=== PATIENT | male | born 1980 | race Two or more races ===

== ENCOUNTER 2017-05-04 08:57 | Emergency (ER) | payer MEDICAID, OTHER ==
[~2017-05-04] VITALS: Ht 177.8 cm; Wt 90.7 kg
[2017-05-04 09:04] VITALS: BP 139/121
[2017-05-04] MEDS ORDERED: KETOROLAC TROMETH 60MG/2ML VIAL IM ONE (12:00)
== END 2017-05-04 13:28 | disposition home or self-care (01) ==
LOC: ER 08:57
DX: S86.911A Strain of unspecified muscle(s) and tendon(s) at lower leg level, right leg, initial encounter (principal); F17.210 Nicotine dependence, cigarettes, uncomplicated; X50.9XXA Other and unspecified overexertion or strenuous movements or postures, initial encounter; Y93.89 Activity, other specified; Y92.89 Other specified places as the place of occurrence of the external cause; Y99.8 Other external cause status
CPT/HCPCS: 93971; 96372; 99284; J1885

== ENCOUNTER 2017-06-18 18:30 | Emergency (ER) | payer MEDICAID ==
[~2017-06-18] VITALS: Ht 177.8 cm; Wt 90.7 kg
[2017-06-18 18:54] VITALS: BP 145/85
[2017-06-18] MEDS ORDERED: LIDOCAINE 1% HCL (LOCAL ANESTH.) INJ 20ML MDV ONE (19:34)
[2017-06-18] MEDS ORDERED: LIDOCAINE 1% HCL (LOCAL ANESTH.) INJ 20ML MDV IJ ONE (19:45)
[2017-06-18] MEDS ORDERED: BACITRACIN TOP OINT 1 UD PKG TOP ONE (19:45)
== END 2017-06-18 20:26 | disposition home or self-care (01) ==
LOC: ER 18:30
DX: S61.215A Laceration without foreign body of left ring finger without damage to nail, initial encounter (principal); S61.217A Laceration without foreign body of left little finger without damage to nail, initial encounter; F17.210 Nicotine dependence, cigarettes, uncomplicated; Z23 Encounter for immunization; W22.8XXA Striking against or struck by other objects, initial encounter; Y93.89 Activity, other specified; Y92.89 Other specified places as the place of occurrence of the external cause; Y99.8 Other external cause status
CPT/HCPCS: 12001; 99283; J2001

== ENCOUNTER 2019-11-04 08:19 | Emergency (ER) | payer MEDICAID ==
[~2019-11-04] VITALS: Ht 177.8 cm; Wt 86.2 kg
[2019-11-04] MEDS ORDERED: SODIUM CHLORIDE 0.9% 1,000 ML IV ONE ×2 (08:26)
[2019-11-04 14:18] VITALS: BP 162/86
== END 2019-11-04 11:45 | disposition left against medical advice (07) ==
LOC: ER 08:19
DX: T67.5XXA Heat exhaustion, unspecified, initial encounter (principal); E86.0 Dehydration; I10 Essential (primary) hypertension; F17.210 Nicotine dependence, cigarettes, uncomplicated; X58.XXXA Exposure to other specified factors, initial encounter; Y93.89 Activity, other specified; Y92.89 Other specified places as the place of occurrence of the external cause; Y99.8 Other external cause status
CPT/HCPCS: 71046; 93005

== ENCOUNTER 2020-06-03 17:24 | Emergency (ER) | payer MEDICAID ==
[~2020-06-03] VITALS: Ht 177.8 cm; Wt 88.5 kg
[2020-06-03] MEDS ORDERED: TETRACAINE HCL 0.5% OPTH(EYE) SOLN 4ML ONE (17:29)
[2020-06-03] MEDS ORDERED: TETRACAINE HCL 0.5% OPTH(EYE) SOLN 4ML RIGHTEYE ONE (17:45)
[2020-06-03] MEDS ORDERED: ACETAMINOPHEN/CODEINE#3 (300/30mg) TAB PO ONE (19:45)
[2020-06-03 20:41] VITALS: BP 131/92
== END 2020-06-03 21:01 | disposition home or self-care (01) ==
LOC: ER 17:24
DX: S05.01XA Injury of conjunctiva and corneal abrasion without foreign body, right eye, initial encounter (principal); H00.033 Abscess of eyelid right eye, unspecified eyelid; F17.210 Nicotine dependence, cigarettes, uncomplicated; I10 Essential (primary) hypertension; X58.XXXA Exposure to other specified factors, initial encounter; Y93.89 Activity, other specified; Y92.89 Other specified places as the place of occurrence of the external cause; Y99.8 Other external cause status
CPT/HCPCS: 70480

== ENCOUNTER 2021-08-04 13:59 | Emergency (ER) | payer MEDICAID ==
[~2021-08-04] VITALS: Ht 177.8 cm; Wt 86.2 kg
[2021-08-04 13:59] VITALS: BP 195/136
[2021-08-04] MEDS ORDERED: ONDANSETRON ODT 4 MG TAB PO ONE (14:15)
[2021-08-04] MEDS ORDERED: amLODIPine BESYLATE 5 MG TAB PO ONE (14:15)
[2021-08-04 15:26] LABS: Albumin 3.9 g/dL (3.4-5.0); Calcium 8.8 mg/dL (8.5-10.1); Potassium 3.7 mmol/L (3.5-5.1)
[2021-08-04 15:39] LABS: BUN/Creatinine Ratio 10.2; Bilirubin, Total 0.8 mg/dL (0.2-1.0); Total Protein 8.3 g/dL (6.4-8.2)
[2021-08-04 16:35] LABS: Basophils # (auto) 0.1 10 ^3/uL (0-0.2); Basophils % (auto) 1.6 % (0.0-2.0); Eosinophils # (auto) 0 10 ^3/uL (0-0.8); Eosinophils % (auto) 0.6 % (0.0-7.0); Hematocrit 36.5 % (41.0-53.0); Hemoglobin 11.6 g/dL (13.5-17.5); Lymphocytes # (auto) 1.5 10 ^3/uL (0.4-5.4); Lymphocytes % (auto) 21.9 % (10.0-50.0); Mean Corpuscular Hemoglobin 23.1 pg (28.0-32.0); Mean Corpuscular Hgb Conc. 31.8 g/dL (32.0-36.0); Mean Corpuscular Volume 72.6 fL (80.0-100.0); Monocytes # (auto) 0.6 10 ^3/uL (0-1.3); Monocytes % (auto) 9.2 % (0.0-12.0); Neutrophils # (auto) 4.6 10 ^3/uL (1.6-8.6); Neutrophils % (auto) 66.7 % (37.0-80.0); Nucleated Red Blood Cells % 0.1 %; Red Blood Cells 5.02 10^6/uL (4.5-5.90); Red Cell Distribution Width 18.1 % (11.8-14.3); White Blood Cell 6.9 10^3/uL (4.4-10.8)
[2021-08-04] MEDS ORDERED: hydrALAZINE HCL 20 MG/ML VL IM ONE (19:45)
[2021-08-04] MEDS ORDERED: NIC21P TOP (19:48)
[2021-08-04] MEDS ORDERED: AML5T PO (19:48)
[2021-08-04] MEDS ORDERED: ONDA-144 PO (19:48)
== END 2021-08-04 20:16 | disposition home or self-care (01) ==
LOC: ER 13:59
DX: I10 Essential (primary) hypertension (principal); R51.9 Headache, unspecified; F17.210 Nicotine dependence, cigarettes, uncomplicated
CPT/HCPCS: 36415; 70450; 71045; 80053; 83690; 84484; 85025; 93005; 99285; Q0162

== ENCOUNTER → 2021-11-04 | Emergency (ER) | payer MEDICAID ==
[~2021-11-04] MED LIST: AML5T PO; NIC21P TOP; ONDA-144 PO
== END | disposition left against medical advice (07) ==
LOC: ER 21:40
DX: H92.03 Otalgia, bilateral (principal); Z53.21 Procedure and treatment not carried out due to patient leaving prior to being seen by health care provider

== ENCOUNTER 2021-11-05 12:26 | Emergency (ER) | payer MEDICAID ==
[2021-11-05 14:40] VITALS: BP 148/95
== END 2021-11-05 14:46 | disposition home or self-care (01) ==
LOC: ER 12:26
DX: H61.23 Impacted cerumen, bilateral (principal)
CPT/HCPCS: 69209

== ENCOUNTER 2022-03-23 07:09 | Inpatient (IN) | payer MEDICAID ==
[~2022-03-23] VITALS: Ht 177.8 cm; Wt 84.2 kg
[2022-03-23] MEDS ORDERED: LIDOCAINE HCL 2% TOP JELLY 5ML TOP ONE (08:15)
[2022-03-23] MEDS ORDERED: HYDROmorphone HCL 2 MG/ML VL/or syr IV ONE (10:30)
[2022-03-23 10:39] LABS: Urine Blood Negative /uL (Negative); Urine Specific Gravity 1.009 (1.001-1.035)
[2022-03-23 11:02] LABS: Basophils # (auto) 0.1 10 ^3/uL (0-0.2); Eosinophils # (auto) 0.2 10 ^3/uL (0-0.8); Red Blood Cells 4.56 10^6/uL (4.5-5.90); White Blood Cell 6.2 10^3/uL (4.4-10.8)
[2022-03-23 11:05] LABS: Basophils % (auto) 1.7 % (0.0-2.0); Eosinophils % (auto) 2.7 % (0.0-7.0); Hematocrit 34.6 % (41.0-53.0); Hemoglobin 10.7 g/dL (13.5-17.5); Lymphocytes # (auto) 1.6 10 ^3/uL (0.4-5.4); Lymphocytes % (auto) 26.4 % (10.0-50.0); Mean Corpuscular Hemoglobin 23.6 pg (28.0-32.0); Monocytes # (auto) 0.6 10 ^3/uL (0-1.3); Monocytes % (auto) 8.9 % (0.0-12.0); Neutrophils # (auto) 3.7 10 ^3/uL (1.6-8.6); Neutrophils % (auto) 60.3 % (37.0-80.0); Red Cell Distribution Width 17.7 % (11.8-14.3)
[2022-03-23] MEDS ORDERED: DOCUSATE SOD 100 MG CAP PO PRN (11:30)
[2022-03-23] MEDS ORDERED: ACETAMINOPHEN 325 MG TAB PO PRN (11:30)
[2022-03-23] MEDS ORDERED: MORPHINE SULFATE INJ 2 MG/ml SYRG IV PRN (11:30)
[2022-03-23] MEDS ORDERED: ONDANSETRON HCL 4 MG/2 ML VIAL IV PRN (11:30)
[2022-03-23 11:36] LABS: Albumin 3.3 g/dL (3.4-5.0); BUN/Creatinine Ratio 7.1; Bilirubin, Total 0.9 mg/dL (0.2-1.0); Calcium 8.6 mg/dL (8.5-10.1); Potassium 4.1 mmol/L (3.5-5.1); Total Protein 7.2 g/dL (6.4-8.2)
[2022-03-23] MEDS ORDERED: IOHEXOL 300 MG/ML 100ML BOTTLE IJ ONE (11:43)
[2022-03-23] MEDS ORDERED: NICOTINE 7MG/24HR TOPICAL PATCH TD SCH (11:45)
[2022-03-23] MEDS: HYDROcodone-ACET 5/325MG TAB PO PRN ×2 (15:34→20:55)
[2022-03-23] MEDS ORDERED: LIDOCAINE HCL 5 % TOP OINT 35 GM TOP ONE (22:00)
[2022-03-23 22:42] VITALS: BP 168/96
[2022-03-23] MEDS: NICOTINE 7MG/24HR TOPICAL PATCH TD SCH (23:44)
[2022-03-24] MEDS: HYDROcodone-ACET 5/325MG TAB PO PRN ×3 (01:01→16:14)
[2022-03-24 05:00] VITALS: BP 142/87
[2022-03-24 06:13] LABS: Basophils # (auto) 0.1 10 ^3/uL (0-0.2); Hematocrit 35.3 % (41.0-53.0); Lymphocytes # (auto) 1.3 10 ^3/uL (0.4-5.4); Neutrophils # (auto) 2.9 10 ^3/uL (1.6-8.6); White Blood Cell 5.3 10^3/uL (4.4-10.8)
[2022-03-24 06:13] LABS: BUN/Creatinine Ratio 11.7; Calcium 9.2 mg/dL (8.5-10.1); Potassium 4.3 mmol/L (3.5-5.1)
[2022-03-24 06:16] LABS: Basophils % (auto) 1.3 % (0.0-2.0); Eosinophils # (auto) 0.4 10 ^3/uL (0-0.8); Eosinophils % (auto) 8.3 % (0.0-7.0); Lymphocytes % (auto) 24.8 % (10.0-50.0); Mean Corpuscular Hemoglobin 23.7 pg (28.0-32.0); Mean Corpuscular Hgb Conc. 31.2 g/dL (32.0-36.0); Monocytes # (auto) 0.6 10 ^3/uL (0-1.3); Neutrophils % (auto) 54.6 % (37.0-80.0); Nucleated Red Blood Cells % 0.1 %; Red Blood Cells 4.64 10^6/uL (4.5-5.90); Red Cell Distribution Width 17.3 % (11.8-14.3)
[2022-03-24 09:00] VITALS: BP 146/84
[2022-03-24] MEDS ORDERED: WITCH HAZEL-GLYCERIN PAD TOP PRN (10:00)
[2022-03-24] MEDS ORDERED: amLODIPine BESYLATE 5 MG TAB PO SCH (10:00)
[2022-03-24] MEDS ORDERED: LISINOPRIL 20 MG TAB PO ONE (12:30)
[2022-03-24 13:00] VITALS: BP 154/96
[2022-03-24] MEDS: INDOMETHACIN 25 MG CAP PO SCH ×2 (14:00→22:56)
[2022-03-24 16:53] VITALS: BP 147/90
[2022-03-24 22:00] VITALS: BP 149/92
[2022-03-24] MEDS: NICOTINE 7MG/24HR TOPICAL PATCH TD SCH (22:56)
[2022-03-25 05:00] VITALS: BP 156/94
[2022-03-25] MEDS: INDOMETHACIN 25 MG CAP PO SCH (05:58)
[2022-03-25 09:00] VITALS: BP 141/95
[2022-03-25] MEDS: HYDROcodone-ACET 5/325MG TAB PO PRN (09:20)
[2022-03-25] MEDS ORDERED: LISINOPRIL 20 MG TAB PO SCH (10:00)
[2022-03-25] MEDS ORDERED: LIDO5CRE EX (12:10)
[2022-03-25] MEDS ORDERED: LISI20TA28 PO (12:10)
[2022-03-25] MEDS ORDERED: TUCKS TOP (12:10)
[2022-03-25 13:00] VITALS: BP 130/88
== END 2022-03-25 14:10 | disposition home or self-care (01) | DRG 254 ==
LOC: ER 07:09 → OVERFLOW 11:32 → WEST WING 22:10
PROVIDERS: ADMIT Nurse Practitioner Family; ATTEND Internal Medicine
DX: K64.5 Perianal venous thrombosis (principal); F17.210 Nicotine dependence, cigarettes, uncomplicated; K62.3 Rectal prolapse; I10 Essential (primary) hypertension; K64.4 Residual hemorrhoidal skin tags; R73.9 Hyperglycemia, unspecified; Z83.3 Family history of diabetes mellitus; K64.8 Other hemorrhoids; Z20.822 Contact with and (suspected) exposure to COVID-19
CPT/HCPCS: 36415; 74177; 80048; 80053; 81003; 83036; 83690; 85025; 87426; 87804; 96374; G0378

== ENCOUNTER 2022-11-29 11:02 | Emergency (ER) | payer MEDICAID ==
[~2022-11-29] VITALS: Ht 177.8 cm; Wt 91.0 kg
[~2022-11-29 11:02] MED LIST changes: -AML5T PO; +LIDO5CRE EX; +LISI20TA56 PO; +TUCKS TOP
[2022-11-29 12:13] VITALS: BP 149/99; PULSE 100; RESP 18; TEMP 97.9; O2SAT 99
[2022-11-29] MEDS ORDERED: TETRACAINE HCL 0.5% OPTH(EYE) SOLN 4ML RIGHTEYE ONE (12:30)
[2022-11-29] MEDS ORDERED: FLUORESCEIN SOD OPTH TEST STRIP RIGHTEYE ONE (12:30)
[2022-11-29] MEDS ORDERED: CIPR0.3S67 OP (13:21)
== END 2022-11-29 13:39 | disposition home or self-care (01) ==
LOC: ER 11:02
DX: S05.01XA Injury of conjunctiva and corneal abrasion without foreign body, right eye, initial encounter (principal); R03.0 Elevated blood-pressure reading, without diagnosis of hypertension; I10 Essential (primary) hypertension; F17.210 Nicotine dependence, cigarettes, uncomplicated; Z79.2 Long term (current) use of antibiotics; Z79.899 Other long term (current) drug therapy; X58.XXXA Exposure to other specified factors, initial encounter; Y93.89 Activity, other specified; Y92.89 Other specified places as the place of occurrence of the external cause; Y99.8 Other external cause status

== ENCOUNTER 2022-12-24 11:09 | Emergency (ER) | payer MEDICAID ==
[~2022-12-24] VITALS: Ht 177.8 cm; Wt 87.7 kg
[~2022-12-24 11:09] MED LIST changes: +CIPR0.3S67 OP
[2022-12-24] MEDS ORDERED: levETIRAcetam 500 MG TAB PO ONE (11:45)
[2022-12-24] MEDS ORDERED: METOPROLOL TARTRATE 25 MG TAB PO ONE (11:45)
[2022-12-24] MEDS ORDERED: LORazepam 0.5 MG TAB PO ONE (11:45)
[2022-12-24 12:28] VITALS: RESP 18; TEMP 98
[2022-12-24 14:38] LABS: Basophils # (auto) 0.1 10 ^3/uL (0-0.2); Eosinophils # (auto) 0.2 10 ^3/uL (0-0.8); Eosinophils % (auto) 2.3 % (0.0-7.0); Hemoglobin 12.9 g/dL (13.5-17.5); Lymphocytes # (auto) 1.3 10 ^3/uL (0.4-5.4)
[2022-12-24 14:41] LABS: Basophils % (auto) 0.9 % (0.0-2.0); Lymphocytes % (auto) 19.1 % (10.0-50.0); Mean Corpuscular Hemoglobin 26.3 pg (28.0-32.0); Mean Corpuscular Hgb Conc. 32.3 g/dL (32.0-36.0); Mean Corpuscular Volume 81.4 fL (80.0-100.0); Monocytes # (auto) 0.6 10 ^3/uL (0-1.3); Monocytes % (auto) 9.2 % (0.0-12.0); Neutrophils # (auto) 4.6 10 ^3/uL (1.6-8.6); Neutrophils % (auto) 68.5 % (37.0-80.0); Red Blood Cells 4.91 10^6/uL (4.5-5.90); Red Cell Distribution Width 19.3 % (11.8-14.3); White Blood Cell 6.8 10^3/uL (4.4-10.8)
[2022-12-24 14:57] LABS: Alanine Aminotransferase 101 U/L (7-40); Albumin 4.4 g/dL (3.2-4.8); Alkaline Phosphatase 117 U/L (46-116); Anion Gap 8.7 (5-15); Aspartate Aminotransferase 199 U/L (13-40); BUN/Creatinine Ratio 8.6 (10.0-20.0); Blood Alcohol 123.3 mg/dL (<10); Blood Urea Nitrogen 7 mg/dL (9-23); Calcium 9.1 mg/dL (8.5-10.1); Carbon Dioxide 25.3 mmol/L (20-30); Chloride 104 mmol/L (98-107); Glucose 86 mg/dL (74-106); Magnesium 1.7 mg/dL (1.6-2.6); Sodium 138 mmol/L (136-145)
[2022-12-24 14:58] LABS: Bilirubin, Total 1.7 mg/dL (0.2-1.0); Total Protein 8.1 g/dL (5.7-8.2)
[2022-12-24 15:18] LABS: INR 1.19 (0.9-1.15); Partial Thromboplastin Time 32.3 SEC (24.5-34.5); Prothrombin Time 12.4 sec (9.3-11.8)
[2022-12-24] MEDS ORDERED: LEVE500T40 PO (15:38)
[2022-12-24 15:59] VITALS: BP 140/97; PULSE 80; O2SAT 96
[2022-12-25] MEDS ORDERED: HYDROcodone-ACET 10/325MG TAB PO ONE (18:30)
== END 2022-12-24 16:03 | disposition home or self-care (01) ==
LOC: ER 11:09
DX: R56.9 Unspecified convulsions (principal); I10 Essential (primary) hypertension; Z79.899 Other long term (current) drug therapy; Z98.890 Other specified postprocedural states
CPT/HCPCS: 36415; 70450; 80053; 80320; 83735; 84443; 84484; 85025; 85610; 85730; 93005

== ENCOUNTER → 2023-06-06 | Outpatient (CLI) | payer MEDICAID ==
[~2023-06-06] MED LIST changes: +LEVE500T40 PO
[2023-06-06 11:54] LABS: Basophils # (auto) 0.1 10 ^3/uL (0-0.2); Basophils % (auto) 1.9 % (0.0-2.0); Eosinophils # (auto) 0.1 10 ^3/uL (0-0.8); Eosinophils % (auto) 1.6 % (0.0-7.0); Hematocrit 39.8 % (41.0-53.0); Hemoglobin 13.4 g/dL (13.5-17.5); Lymphocytes # (auto) 1.4 10 ^3/uL (0.4-5.4); Lymphocytes % (auto) 21.7 % (10.0-50.0); Mean Corpuscular Hemoglobin 30.3 pg (28.0-32.0); Mean Corpuscular Hgb Conc. 33.7 g/dL (32.0-36.0); Mean Corpuscular Volume 90.1 fL (80.0-100.0); Monocytes # (auto) 0.7 10 ^3/uL (0-1.3); Monocytes % (auto) 10.2 % (0.0-12.0); Neutrophils # (auto) 4.2 10 ^3/uL (1.6-8.6); Neutrophils % (auto) 64.6 % (37.0-80.0); Nucleated Red Blood Cells % 0.1 %; Red Blood Cells 4.42 10^6/uL (4.5-5.90); Red Cell Distribution Width 17.9 % (11.8-14.3); White Blood Cell 6.5 10^3/uL (4.4-10.8)
[2023-06-06 12:20] LABS: Alanine Aminotransferase 45 U/L (7-40); Albumin 4.1 g/dL (3.2-4.8); Alkaline Phosphatase 189 U/L (46-116); Anion Gap 7 (5-15); Aspartate Aminotransferase 136 U/L (13-40); BUN/Creatinine Ratio 9.2 (10.0-20.0); Bilirubin, Total 6.5 mg/dL (0.2-1.0); Blood Urea Nitrogen 7 mg/dL (9-23); Calcium 9.1 mg/dL (8.5-10.1); Carbon Dioxide 25 mmol/L (20-30); Chloride 104 mmol/L (98-107); Cholesterol 175 mg/dL (< 200); Glucose 92 mg/dL (74-106); HDL Cholesterol 33 mg/dL (40-59); LDL Cholesterol 111 mg/dL (< 100); Sodium 136 mmol/L (136-145); Total Protein 8.1 g/dL (5.7-8.2); Triglycerides 158 mg/dL (< 150)
[2023-06-06 12:46] LABS: Free T4 (Free Thyroxine) 0.83 ng/dL (0.89-1.76); T3 Total 1.11 ng/mL (0.60-1.81)
== END | disposition home or self-care (01) ==
LOC: LAB 11:31
PROVIDERS: ATTEND Nurse Practitioner Gerontology
DX: Z00.01 Encounter for general adult medical examination with abnormal findings (principal)
CPT/HCPCS: 36415; 80053; 80061; 83036; 84439; 84443; 84480; 85025

== ENCOUNTER 2023-09-30 00:02 | Emergency (ER) | payer MEDICAID ==
[~2023-09-30] VITALS: Ht 177.8 cm; Wt 83.0 kg
[2023-09-30 01:32] LABS: Basophils # (auto) 0.3 10 ^3/uL (0-0.2); Basophils % (auto) 3.6 % (0.0-2.0); Eosinophils # (auto) 0.1 10 ^3/uL (0-0.8); Eosinophils % (auto) 2.1 % (0.0-7.0); Hematocrit 32.1 % (41.0-53.0); Hemoglobin 10.3 g/dL (13.5-17.5); Lymphocytes # (auto) 2.7 10 ^3/uL (0.4-5.4); Lymphocytes % (auto) 38.2 % (10.0-50.0); Mean Corpuscular Hemoglobin 28.4 pg (28.0-32.0); Mean Corpuscular Hgb Conc. 32.1 g/dL (32.0-36.0); Mean Corpuscular Volume 88.3 fL (80.0-100.0); Monocytes # (auto) 0.7 10 ^3/uL (0-1.3); Monocytes % (auto) 10.1 % (0.0-12.0); Neutrophils # (auto) 3.2 10 ^3/uL (1.6-8.6); Red Blood Cells 3.64 10^6/uL (4.5-5.90); Red Cell Distribution Width 17.8 % (11.8-14.3)
[2023-09-30 01:44] LABS: Anion Gap 7 (5-15); Carbon Dioxide 28 mmol/L (20-30); Chloride 105 mmol/L (98-107); Potassium 3.5 mmol/L (3.5-5.1); Sodium 140 mmol/L (136-145)
[2023-09-30 01:45] LABS: Calcium 8.5 mg/dL (8.5-10.1)
[2023-09-30 01:50] LABS: Glucose 170 mg/dL (74-106)
[2023-09-30 02:00] LABS: Blood Alcohol 340.1 mg/dL (<10)
[2023-09-30 02:14] LABS: BUN/Creatinine Ratio 6.3 (10.0-20.0); Blood Urea Nitrogen < 5 mg/dL (9-23)
[2023-09-30 03:03] VITALS: BP 129/73; PULSE 130; RESP 18; TEMP 98.2; O2SAT 98
== END 2023-09-30 03:03 | disposition home or self-care (01) ==
LOC: ER 00:02
DX: F10.10 Alcohol abuse, uncomplicated (principal); R56.9 Unspecified convulsions; I10 Essential (primary) hypertension; F17.210 Nicotine dependence, cigarettes, uncomplicated; Z79.899 Other long term (current) drug therapy; Y90.0 Blood alcohol level of less than 20 mg/100 ml
CPT/HCPCS: 36415; 80048; 80320; 82962; 84484; 85025; 93005

== ENCOUNTER → 2023-10-06 | Outpatient (CLI) | payer MEDICAID ==
[2023-10-06 14:29] LABS: Hematocrit 32.1 % (41.0-53.0); Hemoglobin 10.4 g/dL (13.5-17.5); Mean Corpuscular Hemoglobin 28.2 pg (28.0-32.0); Mean Corpuscular Hgb Conc. 32.3 g/dL (32.0-36.0); Mean Corpuscular Volume 87.2 fL (80.0-100.0); Red Blood Cells 3.69 10^6/uL (4.5-5.90); Red Cell Distribution Width 17.4 % (11.8-14.3); White Blood Cell 6.2 10^3/uL (4.4-10.8)
[2023-10-06 14:30] LABS: Band Neutrophils % (manual) 0; Basophils % (manual) 0 (0.0-2.0); Blast Cells 0; Eosinophils % (manual) 0 (0-7); Metamyelocytes % 0; Myelocytes % 0; Promyelocytes % 0; Reactive Lymphocytes 0
[2023-10-06 14:37] LABS: Albumin 3.3 g/dL (3.2-4.8)
[2023-10-06 14:38] LABS: Bilirubin, Direct 4.1 mg/dL (<0.3); Bilirubin, Total 5.4 mg/dL (0.2-1.0); Total Protein 7.8 g/dL (5.7-8.2)
[2023-10-06 14:39] LABS: Free T3 2.73 pg/mL (2.3-4.2); Free T4 (Free Thyroxine) 0.8 ng/dL (0.89-1.76)
[2023-10-06 15:00] LABS: Lymphocytes % (manual) 32 (10.0-50.0); Monocytes % (manual) 9 (0-12); Platelet Estimate Decreased
[2023-10-09 09:13] LABS: Hepatitis B Surface Antigen Negative (Negative)
[2023-10-09 09:34] LABS: Hepatitis A Ab IgM Negative
[2023-10-09 09:36] LABS: Hepatitis B Core IgM Negative; Hepatitis C Antibody Negative (Negative)
== END | disposition home or self-care (01) ==
LOC: LAB 13:55
PROVIDERS: ATTEND Internal Medicine
DX: D64.9 Anemia, unspecified (principal); R79.89 Other specified abnormal findings of blood chemistry; R94.6 Abnormal results of thyroid function studies; R00.0 Tachycardia, unspecified; E78.2 Mixed hyperlipidemia
CPT/HCPCS: 36415; 80061; 80074; 80076; 84439; 84443; 84481; 85007; 85027

== ENCOUNTER 2023-10-30 09:24 | Inpatient (IN) | payer MEDICAID ==
[~2023-10-30] VITALS: Ht 177.8 cm; Wt 82.0 kg
[~2023-10-30 09:24] MED LIST changes: +OXCA300T50 PO; +[UNRECOGNIZED DRUG - CODE] PO
[2023-10-30] MEDS: SODIUM CHLORIDE 0.9% 1,000 ML IV ONE (10:35)
[2023-10-30 10:39] LABS: Basophils # (auto) 0.2 10 ^3/uL (0-0.2); Basophils % (auto) 1.9 % (0.0-2.0); Eosinophils # (auto) 0.1 10 ^3/uL (0-0.8); Eosinophils % (auto) 1.1 % (0.0-7.0); Hematocrit 34.1 % (41.0-53.0); Hemoglobin 11.4 g/dL (13.5-17.5); Lymphocytes # (auto) 1.4 10 ^3/uL (0.4-5.4); Mean Corpuscular Hemoglobin 32.1 pg (28.0-32.0); Mean Corpuscular Hgb Conc. 33.5 g/dL (32.0-36.0); Mean Corpuscular Volume 95.9 fL (80.0-100.0); Monocytes # (auto) 1.3 10 ^3/uL (0-1.3); Monocytes % (auto) 13.6 % (0.0-12.0); Neutrophils # (auto) 6.8 10 ^3/uL (1.6-8.6); Neutrophils % (auto) 69.4 % (37.0-80.0); Nucleated Red Blood Cells % 0.1 %; Red Blood Cells 3.56 10^6/uL (4.5-5.90); Red Cell Distribution Width 23.8 % (11.8-14.3); White Blood Cell 9.8 10^3/uL (4.4-10.8)
[2023-10-30 10:51] LABS: Alanine Aminotransferase 27 U/L (7-40); Albumin 3.1 g/dL (3.2-4.8); Alkaline Phosphatase 216 U/L (46-116); Anion Gap 8 (5-15); Aspartate Aminotransferase 96 U/L (13-40); Blood Alcohol < 3.0 mg/dL (<10); Blood Urea Nitrogen 8 mg/dL (9-23); Calcium 8.6 mg/dL (8.5-10.1); Carbon Dioxide 26 mmol/L (20-30); Chloride 100 mmol/L (98-107); Glucose 106 mg/dL (74-106); Potassium 3.3 mmol/L (3.5-5.1); Sodium 134 mmol/L (136-145)
[2023-10-30 10:52] LABS: Bilirubin, Total 18.4 mg/dL (0.2-1.0); Total Protein 8.1 g/dL (5.7-8.2)
[2023-10-30 11:03] LABS: BUN/Creatinine Ratio 10.1 (10.0-20.0)
[2023-10-30] MEDS: PANTOPRAZOLE 40 MG/10 ML VIAL INJ IV ONE ×2 (11:05→15:00)
[2023-10-30 13:27] LABS: INR 1.73 (0.9-1.15); Partial Thromboplastin Time 34.2 SEC (24.5-34.5); Prothrombin Time 17.6 sec (9.3-11.8)
[2023-10-30] MEDS ORDERED: NITROGLYCERIN 0.4 MG SL TAB SL PRN (13:45)
[2023-10-30] MEDS ORDERED: MORPHINE SULFATE INJ 2 MG/ml SYRG IV PRN (13:45)
[2023-10-30] MEDS ORDERED: ONDANSETRON HCL 4 MG/2 ML VIAL IV PRN (13:45)
[2023-10-30 13:56] VITALS: PULSE 118; RESP 25; O2SAT 90
[2023-10-30] MEDS: POTASSIUM CHL 20MEQ/100ML 100 ML IV ONE (14:46)
[2023-10-30] MEDS: FUROSEMIDE 20 MG/2 ML VIAL IV ONE (14:59)
[2023-10-30] MEDS: cefTRIAXone 1GM/50ML D5W 50 ML IV ONE (15:02)
[2023-10-30 16:12] LABS: Magnesium 1.6 mg/dL (1.6-2.6)
[2023-10-30 16:13] LABS: Phosphorus 3.4 mg/dL (2.4-5.1)
[2023-10-30 19:35] VITALS: PULSE 104; RESP 13; O2SAT 95
[2023-10-30 21:38] VITALS: BP 138/81; PULSE 98; RESP 18; TEMP 99.7; O2SAT 94
[2023-10-30 21:51] LABS: Urine Bacteria FEW /hpf (None Seen); Urine Blood Negative /uL (Negative); Urine Clarity Turbid (Clear); Urine Color Dark-Yellow (Yellow); Urine Hyaline Cast FEW /lpf (0 - 2); Urine Mucus FEW (None Seen); Urine Protein, UAD Negative (Negative); Urine Specific Gravity 1.012 (1.001-1.035); Urine Urobilinogen 6 mg/dL (Negative); Urine WBC 1 /hpf (0 - 3); Urine pH 6.5 (5.0-9.0)
[2023-10-30] MEDS: levETIRAcetam 500 MG TAB PO SCH (22:00)
[2023-10-31] VITALS (9 sets, daily range): BP systolic 115–136; BP diastolic 76–89; PULSE 75–102; RESP 16–20; TEMP 98.4–99; O2SAT 92–97
[2023-10-31 07:26] LABS: Alanine Aminotransferase 21 U/L (7-40); Albumin 2.5 g/dL (3.2-4.8); Alkaline Phosphatase 158 U/L (46-116); Anion Gap 13 (5-15); Aspartate Aminotransferase 72 U/L (13-40); Bilirubin, Total 15.4 mg/dL (0.2-1.0); Calcium 7.9 mg/dL (8.7-10.4); Carbon Dioxide 18 mmol/L (20-30); Chloride 101 mmol/L (98-107); Glucose 87 mg/dL (74-106); Potassium 3.2 mmol/L (3.5-5.1); Sodium 132 mmol/L (136-145); Total Protein 6.6 g/dL (5.7-8.2)
[2023-10-31 07:27] LABS: BUN/Creatinine Ratio 12.3 (10.0-20.0); Blood Urea Nitrogen 8 mg/dL (9-23)
[2023-10-31 07:55] LABS: Basophils # (auto) 0.2 10 ^3/uL (0-0.2); Basophils % (auto) 1.8 % (0.0-2.0); Eosinophils # (auto) 0.2 10 ^3/uL (0-0.8); Hematocrit 28.1 % (41.0-53.0); Hemoglobin 9.4 g/dL (13.5-17.5); Lymphocytes # (auto) 1.7 10 ^3/uL (0.4-5.4); Lymphocytes % (auto) 19.9 % (10.0-50.0); Mean Corpuscular Hemoglobin 32.3 pg (28.0-32.0); Mean Corpuscular Hgb Conc. 33.6 g/dL (32.0-36.0); Mean Corpuscular Volume 96.1 fL (80.0-100.0); Monocytes # (auto) 1.3 10 ^3/uL (0-1.3); Neutrophils % (auto) 60.3 % (37.0-80.0); Nucleated Red Blood Cells % 0.1 %; Red Blood Cells 2.92 10^6/uL (4.5-5.90); White Blood Cell 8.3 10^3/uL (4.4-10.8)
[2023-10-31] MEDS: cefTRIAXone 1GM/50ML D5W 50 ML IV SCH (09:23)
[2023-10-31] MEDS: PANTOPRAZOLE 40 MG/10 ML VIAL INJ IV SCH (09:25)
[2023-10-31] MEDS: FUROSEMIDE 20 MG/2 ML VIAL IV SCH (09:26)
[2023-10-31] MEDS: LISINOPRIL 20 MG TAB PO SCH (09:27)
[2023-10-31] MEDS: NICOTINE 21MG/24 HR TOPICAL PATCH TD SCH (09:27)
[2023-10-31] MEDS: DOCUSATE SOD 100 MG CAP PO PRN (09:27)
[2023-10-31] MEDS: MORPHINE SULFATE INJ 2 MG/ml SYRG IV PRN (09:29)
[2023-10-31] MEDS: ALBUMIN 5% 250 ML IV ONE (16:49)
[2023-10-31] MEDS: SPIRONOLACTONE 25 MG TAB PO SCH (16:50)
[2023-10-31 18:54] LABS: Body Fluid White Blood Cells 120 CUMM (0-200)
[2023-10-31 18:55] LABS: Body Fluid Polymorphonuclear 30 % (0-25); Body Fluid Red Blood Cells 440 CUMM (0-2000)
[2023-10-31] MEDS: POTASSIUM CHL 20 Meq TABLET PO SCH (21:17)
[2023-10-31] MEDS: LACTULOSE 20Gm/30ML SOLN PO ONE (21:17)
[2023-10-31] MEDS: predniSONE 20 MG TAB PO ONE (21:18)
[2023-10-31] MEDS ORDERED: MELATONIN 5 MG TAB PO ONE (22:00)
[2023-10-31] MEDS: MELATONIN 5 MG TAB PO ONE (22:40)
[2023-11-01] VITALS (7 sets, daily range): BP systolic 108–127; BP diastolic 72–84; PULSE 79–99; RESP 16–19; TEMP 36.9; O2SAT 92–95
[2023-11-01 09:18] LABS: Alanine Aminotransferase 23 U/L (7-40); Albumin 2.7 g/dL (3.2-4.8); Alkaline Phosphatase 164 U/L (46-116); Anion Gap 6 (5-15); Aspartate Aminotransferase 66 U/L (13-40); Bilirubin, Total 15.2 mg/dL (0.2-1.0); Blood Urea Nitrogen 6 mg/dL (9-23); Calcium 8.2 mg/dL (8.5-10.1); Carbon Dioxide 23 mmol/L (20-30); Chloride 101 mmol/L (98-107); Glucose 114 mg/dL (74-106); Potassium 4.3 mmol/L (3.5-5.1); Sodium 130 mmol/L (136-145); Total Protein 6.9 g/dL (5.7-8.2)
[2023-11-01 09:21] LABS: BUN/Creatinine Ratio 10.3 (10.0-20.0)
[2023-11-01] MEDS ORDERED: PHYTONADIONE (VIT K)10 MG/ML 1ML VIAL SUBCUT ONE (10:00)
[2023-11-01] MEDS: LACTULOSE 20Gm/30ML SOLN PO SCH (10:13)
[2023-11-01] MEDS: predniSONE 20 MG TAB PO SCH (10:13)
[2023-11-01] MEDS: phytonadione 10 MG in SODIUM CHL 0.9% 50 ML IV ONE (12:56)
[2023-11-01 13:08] LABS: Protein, Body Fluid 1.2 g/dL (.)
[2023-11-01] MEDS ORDERED: LACT10SO3 PO (15:30)
[2023-11-01] MEDS ORDERED: PANT40TA2 PO (15:30)
[2023-11-01] MEDS ORDERED: METH4PAK PO (15:30)
[2023-11-01] MEDS ORDERED: SPIR50TA2 PO (15:30)
[2023-11-01] MEDS ORDERED: FURO1TAB33 PO (15:30)
[2023-11-02 09:09] LABS: Hepatitis B Surface Antigen Negative (Negative)
[2023-11-02 09:30] LABS: Hepatitis B Core IgM Negative
[2023-11-02 09:31] LABS: Hepatitis A Ab IgM Negative; Hepatitis C Antibody Negative (Negative)
[2023-11-02 09:38] LABS: Hepatitis B Core Total AB Negative (Negative)
[2023-11-02] MEDS ORDERED: PHYTONADIONE (VIT K)10 MG/ML 1ML VIAL SUBCUT ONE (10:00)
[2023-11-02] MEDS ORDERED: phytonadione 10 MG in SODIUM CHL 0.9% 50 ML IV ONE (10:15)
[2023-11-02 12:14] LABS: Hepatitis A Total Antibody Positive (Negative); Hepatitis B Surface Antibody Positive (Negative); Hepatitis B Surface Antigen Negative (Negative); Hepatitis C Antibody Negative (Negative)
[2023-11-03] MEDS ORDERED: PHYTONADIONE (VIT K)10 MG/ML 1ML VIAL SUBCUT ONE (10:00)
[2023-11-03] MEDS ORDERED: phytonadione 10 MG in SODIUM CHL 0.9% 50 ML IV ONE (10:15)
== END 2023-11-01 18:15 | disposition home or self-care (01) | DRG 280 ==
LOC: ER 09:24 → TELE 14:05 → TELE-EAST 21:38 → EAST 10-31 16:29
PROVIDERS: ADMIT Internal Medicine; ATTEND Internal Medicine
PROC: 0W9G3ZZ Drainage of Peritoneal Cavity, Percutaneous Approach (ICD-10-PCS; principal; 2023-10-31)
DX: K70.31 Alcoholic cirrhosis of liver with ascites (principal); K70.40 Alcoholic hepatic failure without coma; K85.90 Acute pancreatitis without necrosis or infection, unspecified; K65.2 Spontaneous bacterial peritonitis; K83.1 Obstruction of bile duct; E44.1 Mild protein-calorie malnutrition; D68.9 Coagulation defect, unspecified; I27.20 Pulmonary hypertension, unspecified; J81.1 Chronic pulmonary edema; E87.1 Hypo-osmolality and hyponatremia; D64.9 Anemia, unspecified; D69.59 Other secondary thrombocytopenia; E87.6 Hypokalemia; F17.210 Nicotine dependence, cigarettes, uncomplicated; K76.0 Fatty (change of) liver, not elsewhere classified; G40.909 Epilepsy, unspecified, not intractable, without status epilepticus; R16.2 Hepatomegaly with splenomegaly, not elsewhere classified; Z82.49 Family history of ischemic heart disease and other diseases of the circulatory system; Z68.25 Body mass index [BMI] 25.0-25.9, adult
CPT/HCPCS: 36415; 49083; 71045; 74176; 76700; 76942; 80053; 80074; 80320; 81001; 82140; 82728; 83615; 83690; 83735; 83986; 84100; 85025; 85610; 85730; 86038; 86704; 86706; 86708; 86803; 87205; 87340; 89051; 93005; 96361; 96365; 96375; 96376; G0378; J2470; J3430; J3480

== ENCOUNTER 2024-03-28 20:07 | Inpatient (IN) | payer MEDICAID ==
[~2024-03-28] VITALS: Ht 177.8 cm; Wt 93.0 kg
[~2024-03-28 20:07] MED LIST changes: -CIPR0.3S67 OP; +FURO1TAB33 PO; +LACT10SO3 PO; -LIDO5CRE EX; +METH4PAK PO; -ONDA-144 PO; +PANT40TA2 PO; +SPIR50TA2 PO; -TUCKS TOP
--- NOTE | 2024-03-28 21:54 | ED.PDOC ---
History of Present Illness HPI Comments 43 y.o male presents to the ED for an evaluation of gastrointestinal like symptoms. Patient reports 3 days ago, he had a couple episodes of hematemesis alongside abdominal pain, states his girlfriend was worried for him and had him come in today. Patient was seen in the past for similar symptoms, was admitted due to liver function but states he was never diagnosed with liver cirrhosis. Patient states history of ETOH abuse, last drink was 03/21/24. Patient at this time is asymptomatic, states his symptoms are resolved but is here due to girlfriend being concerned of the hematemesis. Chief Complaint: Nausea/Vomiting Time Seen by MD: 21:42 Primary Care Provider: Ben Mccall Notes: Nurses Notes, Medications, Allergies Allergies: Coded Allergies: NO KNOWN ALLERGIES (Unverified , 01/02/10) Home Meds Active Scripts Pantoprazole Sodium Sesquihydr (Protonix) 40 Mg Tab, 40 MG PO DAILY for 30 Days, #30 TAB 2 Refills Prov:GÓMEZ MURRAY MD 11/01/23 Methylprednisolone (Medrol Dosepak) 4 Mg Yariel, 4 MG PO UD, #21 TAB UAD Prov:GÓMEZ MURRAY MD 11/01/23 Lactulose (Lactulose) 10 Gm/15 Ml Ashly, 10 GM PO BID for 30 Days, #120 ML 3 Refills Prov:GÓMEZ MURRAY MD 11/01/23 Furosemide (Lasix) 20 Mg Tb, 1 TAB PO QAM for 30 Days, #30 TAB 3 Refills Prov:GÓMEZ MURRAY MD 11/01/23 Spironolactone (Aldactone) 50 Mg Tab, 50 MG PO BID for 30 Days, #60 TAB 3 Refills Prov:GÓMEZ MURRAY MD 11/01/23 Levetiracetam (Keppra) 500 Mg Tab, 1 TAB PO BID, #60 TAB 5 Refills Prov:KACI VALVERDE MD 12/24/22 Lisinopril (Lisinopril) 20 Mg Tab, 20 MG PO DAILY, #30 TAB Prov:MARCY DOBBINS MD 03/25/22 Nicotine (Nicoderm 21MG/24HR) 1 Patch Ph, 1 PATCH TOP DAILY, #28 PATCH 1 Refill Prov:JOAQUIN RICE MD 08/04/21 Reported Medications Lamotrigine (LAMOTRIGINE ER) 100 Mg Tab, 1 TAB PO DAILY 10/31/23 Oxcarbazepine (OXTELLAR XR) 300 Mg Tab, PO UD Take 1 tablet by mouth daily for 1 week, THEN 2 tablets by mouth daily. 10/31/23 Information Source: Patient Mode of Arrival: Ambulatory Severity: Moderate Timing: Days Duration: Since onset Past Medical History PAST MEDICAL HISTORY: HTN, Liver, Seizures Surgical History: Denies all surgeries Family History Family History: Reviewed,noncontributory to illness, Family hx of HTN Social History Smoker: Cigarettes, Less Than 1 Pack/Day Alcohol: Sober Drugs: Denies Drug Use Lives In: Home Constitutional: denies: chills, diaphoresis, fatigue, fever, malaise, sweats, weakness, others EENTM: denies: blurred vision, double vision, ear bleeding, ear discharge, ear drainage, ear pain, ear ringing, eye pain, eye redness, hearing loss, mouth pain, mouth swelling, nasal discharge, nose bleeding, nose congestion, nose pain, photophobia, tearing, throat pain, throat swelling, voice changes, others Respiratory: denies: cough, hemoptysis, orthopnea, SOB at rest, shortness of breath, SOB with excertion, stridor, wheezing, others Cardiovascular: denies: chest pain, dizzy spells, diaphoresis, Dyspnea on exertion, edema, irregular heart beat, left arm pain, lightheadedness, palpitations, PND, syncope, others Gastrointestinal: denies: abdomen distended, abdominal pain, blood streaked bowels, constipated, diarrhea, dysphagia, difficulty swallowing, hematemesis, melena, nausea, poor appetite, poor fluid intake, rectal bleeding, rectal pain, vomiting, others Genitourinary: denies: burning, dysuria, flank pain, frequency, hematuria, incontinence, penile discharge, penile sore, pain, testicle pain, testicle swelling, urgency, others Neurological: denies: dizziness, fainting, headache, left sided numbness, left sided weakness, numbness, paresthesia, pre-existing deficit, right sided numbness, right sided weakness, seizure, speech problems, tingling, tremors, weakness, others Musculoskeletal: denies: back pain, gout, joint pain, joint swelling, muscle pain, muscle stiffness, neck pain, others Integumetry: denies: bruises, change in color, change in hair/nails, dryness, laceration, lesions, lumps, rash, wounds, others Allergic/Immunocompromised: denies: Difficulty Healing, Frequent Infections, Hives, Itching, others Hematologic/Lymphatic: denies: anemia, blood clots, easy bleeding, easy bruising, swollen glands, others Endocrine: denies: excessive hunger, excessive sweating, excessive thirst, excessive urination, flushing, intolerance to cold, intolerance to heat, unexplained weight gain, unexplained weight loss, others Psychiatric: denies: anxiety, bipolar disorder, depression, hopeless, panic disorder, schizophrenia, sleepless, suicidal, others All Other Systems: Reviewed and Negative Physical Exam General Appearance: No Apparent Distress, Normal HEENT: Normal ENT Inspection, Pharynx Normal, TMs Normal Neck: Full Range of Motion, Non-Tender, Normal, Normal Inspection Respiratory: Chest Non-Tender, Lungs Clear, No Accessory Muscle Use, No Respiratory Distress, Normal Breath Sounds Cardiovascular: No Edema, No JVD, No Murmur, No Gallop, Normal Peripheral Pulses, Regular Rate/Rhythm Breast Exam: Deferred Gastrointestinal: No Organomegaly, Non Tender, No Pulsatile Mass, Normal Bowel Sounds, Soft Genitalia: Deferred Pelvic: Deferred Rectal: Deferred Extremities: No calf tenderness, Normal capillary refill, Normal inspection, Normal range of motion, Non-tender, No pedal edema Musculoskeletal : Apperance: Normal Neurologic: Alert, rectangular tank cooper II-XII nml as Tested, No Motor Deficits, Normal Affect, Normal Mood, No Sensory Deficits Cerebellar Function: Normal Reflexes: Normal Skin: Dry, Normal Color, Warm Lymphatic: No Adenopathy Was a procedure done? Was a procedure done?: No Differential Dx Considerations may include: ETOH abuse, Liver cirrhosis, Stomach ulcers, gastritis, esophagitis, Viral, gastrointestinal X-Ray, Labs, Meds, VS Vital Signs Date Time Temp Pulse Resp B/P (MAP) Pulse Ox O2 Delivery O2 Flow Rate FiO2 03/28/24 20:16 99.0 114 20 129/93 (105) 100 Lab Test 03/28/24 22:13 Range/Units White Blood Count Pending Red Blood Count Pending Hemoglobin Pending Hematocrit Pending Mean Corpuscular Volume Pending Mean Corpuscular Hemoglobin Pending Mean Corpuscular Hemoglobin Concent Pending Red Cell Distribution Width Pending Platelet Count Pending Mean Platelet Volume Pending Neutrophils (%) (Auto) Pending Lymphocytes (%) (Auto) Pending Monocytes (%) (Auto) Pending Basophils (%) (Auto) Pending Neutrophils # (Auto) Pending Lymphocytes # (Auto) Pending Monocytes # (Auto) Pending Sodium Level Pending Potassium Level Pending Chloride Level Pending Carbon Dioxide Level Pending Anion Gap Pending Blood Urea Nitrogen Pending Creatinine Pending Glomerular Filtration Rate Calc Pending BUN/Creatinine Ratio Pending Serum Glucose Pending Calcium Level Pending Total Bilirubin Pending Aspartate Amino Transferase (AST) Pending Alanine Aminotransferase (ALT) Pending Alkaline Phosphatase Pending Total Protein Pending Albumin Pending Plasma/Serum Blood Alcohol Pending X-Ray, Labs, Meds, VS Comment This 52-year-old male presents emergency room secondary to unclear reasons. He states his girlfriend sent him here as he has yellow eyes. Patient endorses having history of liver issues and previous history swelling of his abdomen. The patient is requesting blood work to rule out liver issues. Time of 1ST Reevaluation: 21:50 Reevaluation 1ST: Unchanged Patient Education/Counseling: Diagnosis, Treatment, Prognosis Family Education/Counseling: No Family Present Departure 1 Departure Time of Disposition: 22:21 Impression: Primary Impression: Alcohol abuse Additional Impression: Generalized weakness Disposition: 01 HOME / SELF CARE / HOMELESS Condition: Stable Critical Care Note Critical Care Time?: No Stability Stability form required: No I personally scribed for ARACELI ZHAO MD ([email or web address]) on 03/28/24 at 21:54. Electronically submitted by Kay Clemens ([facility]). ARACELI ZHAO MD Mar 28, 2024 21:54
[2024-03-28 22:42] LABS: Anion Gap 8 (5-15); BUN/Creatinine Ratio 22.6 (10.0-20.0); Carbon Dioxide 28 mmol/L (20-31); Potassium 3.6 mmol/L (3.5-5.1)
[2024-03-28 22:45] LABS: Chloride 91 mmol/L (98-107); Sodium 127 mmol/L (136-145)
[2024-03-28 22:47] LABS: Alanine Aminotransferase 44 U/L (7-40); Alkaline Phosphatase 151 U/L (46-116); Aspartate Aminotransferase 75 U/L (13-40); Bilirubin, Total 6.5 mg/dL (0.2-1.0); Blood Alcohol < 3.0 mg/dL (<10); Blood Urea Nitrogen 26 mg/dL (9-23); Calcium 8.6 mg/dL (8.7-10.4); Glucose 115 mg/dL (74-106)
[2024-03-28 22:59] LABS: Mean Corpuscular Volume 97.9 fL (80.0-100.0)
[2024-03-28 23:01] LABS: Hematocrit 22.9 % (41.0-53.0); Hemoglobin 7.7 g/dL (13.5-17.5); Mean Corpuscular Hgb Conc. 33.7 g/dL (32.0-36.0); Platelet Count (auto) 209 10^3/uL (140-450); Red Blood Cells 2.34 10^6/uL (4.5-5.90); Red Cell Distribution Width 17.2 % (11.8-14.3)
[2024-03-28 23:04] LABS: Urine Bacteria None Seen /hpf (None Seen)
[2024-03-28 23:06] LABS: Basophils % (manual) 0 (0.0-2.0); Blast Cells 0; Metamyelocytes % 0; Monocytes % (manual) 0 (0-12); Myelocytes % 0; Promyelocytes % 0; Reactive Lymphocytes 0
[2024-03-28 23:18] LABS: Urine Blood Negative /uL (Negative); Urine Clarity Clear (Clear); Urine Color Dark-Yellow (Yellow); Urine Hyaline Cast FEW /lpf (0 - 2); Urine Protein, UAD Negative (Negative); Urine Specific Gravity 1.019 (1.001-1.035); Urine Urobilinogen 3 mg/dL (Negative); Urine WBC 3 /hpf (0 - 3)
[2024-03-29] VITALS (10 sets, daily range): BP systolic 114–150; BP diastolic 58–74; PULSE 82–96; RESP 11–18; TEMP 97.7–98.3; O2SAT 94–100
[2024-03-29 00:54] LABS: Band Neutrophils % (manual) 1; Eosinophils % (manual) 1 (0-7); Lymphocytes % (manual) 26 (10.0-50.0); Platelet Estimate Adequate; Smudge Cells 1 /100 WBC
[2024-03-29] MEDS: SODIUM CHLORIDE 0.9% 1,000 ML IV ONE (01:00)
[2024-03-29] MEDS ORDERED: MORPHINE SULFATE INJ 2 MG/ml SYRG IV PRN (01:15)
[2024-03-29] MEDS ORDERED: ONDANSETRON HCL 4 MG/2 ML VIAL IV PRN (01:15)
[2024-03-29] MEDS ORDERED: NITROGLYCERIN 0.4 MG SL TAB SL PRN (01:15)
[2024-03-29] MEDS ORDERED: SODIUM CHLORIDE 0.9% 1,000 ML IV ONE (01:30)
[2024-03-29] MEDS: SODIUM CHLORIDE 0.9% 1,000 ML IV SCH (01:30)
--- NOTE | 2024-03-29 02:31 | DVHHPRES ---
History of Present Illness Resident Creating Document: JIM NOE RESIDENT History of Present Illness Patient is 43 years old male with past medical history of alcoholic cirrhosis of liver, history of paracentesis, hypertension, seizure disorder came with a complaint of blood vomiting. As per patient patient had nausea and vomiting on Monday 5 times. Patient reported that she had blood vomiting reddish-brown in color on Monday which continued until Monday. Patient also reported having dark brown colored stool in the meantime. On further inquiry patient also reported that he was feeling dizziness and vertigo since he had blood vomiting. Patient denied any fever, abdominal pain, chest pain or shortness of breath, leg swelling, dysarthria or change in vision. Initial lab workup revealed leukocytosis with WBC 18.0, severe anemia hemoglobin 7.7, hyponatremia sodium 127, potassium 3.6, transaminitis with serum bilirubin 6.5, AST 75, ALT 49, alkaline phosphatase 150 on, hypokalemia with albumin 3.0. Patient was seen by hospitalist in November 11, 2023 and was diagnosed with new o nset cirrhosis of liver due to alcoholism, patient also had paracentesis due to ascites. Home medications- Lasix, spironolactone, Protonix. Past Medical History alcoholic cirrhosis of liver, history of paracentesis, hypertension, seizure disorder Past Surgical History Left knee surgery Family History Noncontributory Past Social History Patient lives at home with son, smoker, alcoholic, denies using drugs Review of Systems Review of Systems Allergy- NKDA Patient was seen today at the bedside. Cardiovascular- deny acute chest pain or shortness of breath or cough or palpitation Respiratory- denies cough or short of breath or wheezing Musculoskeletal-denies acute joint swelling or tenderness or redness Neurological- denies acute dysarthria, dysphagia, change in vision Psychiatry- denies depression or SI or HI Skin- denies acute rash or purpura Allergies: Coded Allergies: NO KNOWN ALLERGIES (Unverified , 01/02/10) Medications Current Medications Medications Dose Ordered Sig/Leonardo Route Start Time Stop Time Status Last Admin Dose Admin Ondansetron HCl 4 mg Q4HP PRN IV 03/29/24 01:15 Morphine Sulfate 2 mg Q4HPRN PRN IV 03/29/24 01:15 Nitroglycerin 0.4 mg Q5MINP PRN SL 03/29/24 01:15 Morphine Sulfate 2 mg Q30M PRN IV 03/29/24 01:15 Pantoprazole Sodium 40 mg BID IV 03/29/24 22:00 Sodium Chloride 1,000 ml @ 125 mls/hr Q8H IV 03/29/24 01:30 Lactulose 30 ml Q6HR PO 03/29/24 06:00 Ceftriaxone Sodium/Dextrose 50 ml @ 50 mls/hr DAILY IV 03/29/24 10:00 Exam Vital Signs Vital Signs Date Time Temp Pulse Resp B/P (MAP) Pulse Ox O2 Delivery O2 Flow Rate FiO2 03/28/24 20:16 99.0 114 20 129/93 (105) 100 Exam General examination- awake, alert, oriented, conversant HEENT- PEERLA, icteric+ Cardiovascular- S1-S2 audible, rate and rhythm regular, no murmur Respiratory- CTAB, no wheeze or rhonchi Gastrointestinal-nontender, bowel sound+. Nondistended Musculoskeletal-no acute joint swelling or tenderness or redness# Lower extremity- no leg edema Neurological- cranial nerves intact, no acute dysarthria or dysphagia Psychiatry- denies depression or SI or HI Skin- no acute rash or purpura Labs/Xrays Labs Test 03/28/24 22:13 03/28/24 20:20 Range/Units White Blood Count 18.0 H 4.4-10.8 10^3/uL Red Blood Count 2.34 L 4.5-5.90 10^6/uL Hemoglobin 7.7 L 13.5-17.5 g/dL Hematocrit 22.9 L 41.0-53.0 % Mean Corpuscular Volume 97.9 80.0-100.0 fL Mean Corpuscular Hemoglobin 33.0 H 28.0-32.0 pg Mean Corpuscular Hemoglobin Concent 33.7 32.0-36.0 g/dL Red Cell Distribution Width 17.2 H 11.8-14.3 % Platelet Count 209 140-450 10^3/uL Mean Platelet Volume 7.9 6.9-10.8 fL Neutrophils (%) (Auto) 37.0-80.0 % Lymphocytes (%) (Auto) 10.0-50.0 % Monocytes (%) (Auto) 0.0-12.0 % Basophils (%) (Auto) 0.0-2.0 % Neutrophils # (Auto) 1.6-8.6 10 ^3/uL Lymphocytes # (Auto) 0.4-5.4 10 ^3/uL Monocytes # (Auto) 0-1.3 10 ^3/uL Differential Total Cells Counted 84.0 100 Neutrophils % (Manual) 56 37.0-80.0 Band Neutrophils % (Manual) 1 Lymphocytes % (Manual) 26 10.0-50.0 Monocytes % (Manual) 0 0-12 Eosinophils % (Manual) 1 0-7 Basophils % (Manual) 0 0.0-2.0 Metamyelocytes % (manual) 0 Myelocytes % (Manual) 0 Promyelocytes % (Manual) 0 Blast Cells % (Manual) 0 Nucleated Red Blood Cells 2.0 % Reactive Lymphocytes 0 Smudge Cells 1 /100 WBC Platelet Estimate Adequate Sodium Level 127 L 136-145 mmol/L Potassium Level 3.6 3.5-5.1 mmol/L Chloride Level 91 L 98-107 mmol/L Carbon Dioxide Level 28 20-31 mmol/L Anion Gap 8 5-15 Blood Urea Nitrogen 26 H 9-23 mg/dL Creatinine 1.15 0.700-1.30 mg/dL Glomerular Filtration Rate Calc 80 >90 mL/min BUN/Creatinine Ratio 22.6 H 10.0-20.0 Serum Glucose 115 H 74-106 mg/dL Calcium Level 8.6 L 8.7-10.4 mg/dL Total Bilirubin 6.5 H 0.2-1.0 mg/dL Aspartate Amino Transferase (AST) 75 H 13-40 U/L Alanine Aminotransferase (ALT) 44 H 7-40 U/L Alkaline Phosphatase 151 H 46-116 U/L Total Protein 6.0 5.7-8.2 g/dL Albumin 3.0 L 3.2-4.8 g/dL Plasma/Serum Blood Alcohol < 3.0 <10 mg/dL Urine Color Dark-yellow Yellow Urine Clarity Clear Clear Urine pH 6.0 5.0-9.0 Urine Specific [place] 1.019 1.001-1.035 Urine Protein Negative Negative Urine Ketones Negative Negative Urine Blood Negative Negative /uL Urine Nitrite Negative Negative Urine Bilirubin 1+ Negative Urine Urobilinogen 3 H Negative mg/dL Urine Leukocyte Esterase Negative Negative /uL Urine RBC <1 0 - 3 /hpf Urine WBC 3 0 - 3 /hpf Urine Squamous Epithelial Cells Few <5 /hpf Urine Bacteria None seen None Seen /hpf Urine Hyaline Casts Few 0 - 2 /lpf Urine Glucose Normal Normal mg/dL Assessment/Plan Assessment/Plan # hematemesis likely due to alcoholic cirrhosis of liver with portal hypertension -continue IV 125 mL/hour -continue pantoprazole 40 mg IV b.i.d. -order GI consult for further evaluation and care -pending hepatic panel -ordered GI consult for further evaluation and care # severe anemia likely due to alcoholic cirrhosis of liver --continue pantoprazole 40 mg IV b.i.d. -order GI consult for further evaluation and care -pending hepatic panel # alcoholic cirrhosis of liver, history of paracentesis in November 11, 2023 -continue lactulose 30 mL q.6h -continue spironolactone 50 mg b.i.d. -continue Lasix 20 mg q.d. # transaminitis likely due to alcoholic cirrhosis of liver -monitor CMP # hyponatremia likely dilutional, asymptomatic -monitor CBC # leukocytosis -monitor CBC # hypertension -continue hydralazine 10 mg q.6h p.r.n. -continue lisinopril 20 mg p.o. daily # seizure disorder -continue Ativan p.r.n. -continue levetiracetam 500 mg p.o. b.i.d. # alcoholism -patient was counseled about the effect of alcoholism on health # smoker -patient was counseled about the effect of smoking on health Goals of care/advance care planning; FULL CODE; discussed with the patient >15 minutes PUD prophylaxis: Pantoprazole DVT prophylaxis: Plan discussed with Dr. Iniguez, nursing staff, patient Total time spent on patient evaluation, chart review, assessment and plan, discussion discussion >30 minutes Plan discussed with: Patient Plan discussed with: Patient, Other (RN) My Orders Orders - JIM NOE RESIDENT Procedure Category Date Status Time Admit ADMIT 03/29/24 Transmitted 01:14 Code Status CODE 03/29/24 Transmitted 01:14 Ondansetron Hcl PHA 03/29/24 In Process (Zofran) 01:15 Complete Blood Count LAB 03/30/24 Verified 04:00 Comprehensive LAB 03/30/24 Verified Metabolic Panel 04:00 Npo (Nothing By DIET 03/29/24 Transmitted Mouth) Diet Breakfast Morphine Sulfate PHA 03/29/24 In Process Injection 01:15 Nitroglycerin PHA 03/29/24 In Process Sublingual (Ntrostat 01:15 Morphine Sulfate PHA 03/29/24 In Process Injection 01:15 Oxygen By Nasal RT 03/29/24 Transmitted Cannula 01:14 Stat Ekg For Chest [facility] 03/29/24 In Process Pain 01:14 Notify Md Of Changes [facility] 03/29/24 In Process From Base 01:14 Technical Spec For [facility] 03/29/24 In Process 24 Hours 01:14 Emergency Dysrhythmia [facility] 03/29/24 In Process Protocol 01:14 Rhythm Strips Once [facility] 03/29/24 In Process Every Shift 01:14 Hi Prothrombin W Inr HDVI 03/29/24 Transmitted In Clinic 01:18 Drug Screen LAB 03/29/24 Logged 01:18 Blood Alcohol LAB 03/29/24 Logged 01:18 * Gi [employer] Worker CONS 03/29/24 Transmitted 01:19 Complete Blood Count LAB 03/29/24 Logged 01:19 Pantoprazole PHA 03/29/24 In Process (Protonix) 22:00 Ammonia LAB 03/29/24 Logged 01:20 Abdomen Limited US 03/29/24 Taken 01:26 Sodium Chloride 0.9% PHA 03/29/24 In Process 01:30 Lactulose Oral PHA 03/29/24 In Process 06:00 Ceftriaxone 2gm/50ml PHA 03/29/24 In Process D5w (Rocephin 2gm/5 10:00 Blood Culture [facility] 03/29/24 Logged 01:35 Magnesium LAB 03/29/24 Logged 04:00 Mrsa Screen [facility] 03/29/24 Logged 01:35 Comprehensive LAB 03/29/24 Logged Metabolic Panel 04:00 Bilirubin, Direct LAB 03/29/24 Logged 04:00 Lipase LAB 03/29/24 Logged 04:00 Prothrombin Time W/ LAB 03/29/24 Logged INR 01:55 Date of Service: Mar 29, 2024 Billing Provider: RUPERT INIGUEZ MD Common Visit Codes: [id number] INP/OBS CARE (HIGH) JIM NOE RESIDENT Mar 29, 2024 02:31 RUPERT INIGUEZ MD Mar 29, 2024 19:44
[2024-03-29] MEDS ORDERED: chlordiazePOXIDE HCL 5 MG CAP PO PRN (02:45)
[2024-03-29] MEDS ORDERED: LORazepam 2MG/ML-1ML VIAL IV PRN (02:45)
--- NOTE | 2024-03-29 04:02 | DVH ---
INDICATION: HEMATEMESIS TECHNIQUE: Multiple real-time sonographic images of the abdomen were obtained. COMPARISON: None FINDINGS: Liver appears cirrhotic. The liver measures 15.6 cm. No intrahepatic biliary ductal dilata tion is noted. Gallbladder not visualized. The right kidney measures 11cm. No hydronephrosis. T The pancreas is not well visualized due to obscuration from bowel gas. The visualized portions of the IVC and aorta are grossly unremarkable. IMPRESSION: Hepatic cirrhosis/ hepatic steatosis.
[2024-03-29 04:38] LABS: Amphetamine Screen, Urine Neg (NEGATIVE); Barbiturate Scree,Urine Neg (NEGATIVE); Benzodiazephine Screen, Urine Neg (NEGATIVE); Cannabinoid Screen, Urine Neg (NEGATIVE); Cocaine Screen, Urine Neg (NEGATIVE); Opiate Scree,Urine Neg (NEGATIVE); Phencyclidine Screen, Urine Neg (NEGATIVE)
[2024-03-29] MEDS: cefTRIAXone 1GM/50ML D5W 50 ML IV ONE (04:39)
[2024-03-29] MEDS: MORPHINE SULFATE INJ 2 MG/ml SYRG IV PRN (05:05)
[2024-03-29] MEDS: PANTOPRAZOLE 40 MG/10 ML VIAL INJ IV ONE (05:06)
[2024-03-29] MEDS: FUROSEMIDE 20 MG TAB PO SCH (06:02)
[2024-03-29] MEDS: LACTULOSE 20Gm/30ML SOLN PO SCH (06:02)
[2024-03-29 09:59] LABS: Anion Gap 7 (5-15); Blood Alcohol 4.6 mg/dL (<10); Blood Urea Nitrogen 23 mg/dL (9-23); Carbon Dioxide 30 mmol/L (20-31); Magnesium 1.9 mg/dL (1.6-2.6); Total Protein 5.8 g/dL (5.7-8.2)
[2024-03-29] MEDS ORDERED: cefTRIAXone 2GM/50ML D5W 50 ML IV SCH (10:00)
[2024-03-29] MEDS: levETIRAcetam 500 MG TAB PO SCH (10:00)
[2024-03-29] MEDS: SPIRONOLACTONE 25 MG TAB PO SCH (10:08)
[2024-03-29] MEDS: LISINOPRIL 20 MG TAB PO SCH (10:08)
[2024-03-29] MEDS: NICOTINE 21MG/24 HR TOPICAL PATCH TD SCH (10:10)
[2024-03-29 10:15] LABS: Alanine Aminotransferase 42 U/L (7-40); Albumin 2.8 g/dL (3.2-4.8); Alkaline Phosphatase 160 U/L (46-116); Aspartate Aminotransferase 70 U/L (13-40); Bilirubin, Direct 3.8 mg/dL (<0.3); Bilirubin, Total 5.6 mg/dL (0.2-1.0); Calcium 8.2 mg/dL (8.7-10.4); Chloride 92 mmol/L (98-107); Glucose 120 mg/dL (74-106); Potassium 2.9 mmol/L (3.5-5.1); Sodium 129 mmol/L (136-145)
[2024-03-29 10:23] LABS: INR 1.69 (0.9-1.15); Prothrombin Time 17.2 sec (9.3-11.8)
[2024-03-29] MEDS: OCTREOTIDE ACETATE 500 MCG in SODIUM CHL 0.9% 99 ML IV SCH (12:32)
[2024-03-29 12:48] LABS: Lipase 59 U/L (12-53)
[2024-03-29 13:56] LABS: Mean Corpuscular Hemoglobin 34.4 pg (28.0-32.0); Mean Corpuscular Hgb Conc. 35.2 g/dL (32.0-36.0); Mean Corpuscular Volume 97.7 fL (80.0-100.0); Platelet Count (auto) 131 10^3/uL (140-450); Red Blood Cells 2.05 10^6/uL (4.5-5.90); Red Cell Distribution Width 16.8 % (11.8-14.3); White Blood Cell 9.5 10^3/uL (4.4-10.8)
[2024-03-29 14:02] LABS: Basophils % (manual) 0 (0.0-2.0); Blast Cells 0; Metamyelocytes % 0; Myelocytes % 0; Promyelocytes % 0; Reactive Lymphocytes 0
[2024-03-29 14:38] LABS: Band Neutrophils % (manual) 2; Eosinophils % (manual) 6 (0-7); Lymphocytes % (manual) 21 (10.0-50.0); Monocytes % (manual) 24 (0-12)
[2024-03-29 14:39] LABS: Platelet Estimate Decreased
--- NOTE | 2024-03-29 16:38 | DVHINCON2 ---
Date of service: Mar 29, [address] Beck Reason for Consultation 43-year-old with history of cirrhosis of the liver history of hypertension seizure disorder came with complaints of vomiting blood. Apparently had some nausea vomiting and 5 times had some blood-tinged vomitus was also found to have a low hemoglobin of 7.7 g and hence admitted patient not a paracentesis a few days ago few months ago because of ascites History of alcohol abuse no history of any hepatitis B or C Reason for the GI consult is because of the anemia and the GI bleed History of Present Illness Alcoholism cirrhosis of the liver hypertension seizure disorder Past Medical History Knee surgery Family History: Alcoholism G8 FATHER grandfather Diabetes mellitus G8 FATHER grandfather Family History Noncontributory Social History Denies smoking or drinking Allergies: Coded Allergies: NO KNOWN ALLERGIES (Unverified , 01/02/10) Home Meds Active Scripts Pantoprazole Sodium Sesquihydr (Protonix) 40 Mg Tab, 40 MG PO DAILY for 30 Days, #30 TAB 2 Refills Prov:GÓMEZ MURRAY MD 11/01/23 Lactulose (Lactulose) 10 Gm/15 Ml Ashly, 10 GM PO BID for 30 Days, #120 ML 3 Refills Prov:GÓMEZ MURRAY MD 11/01/23 Furosemide (Lasix) 20 Mg Tb, 1 TAB PO QAM for 30 Days, #30 TAB 3 Refills Prov:GÓMEZ MURRAY MD 11/01/23 Spironolactone (Aldactone) 50 Mg Tab, 50 MG PO BID for 30 Days, #60 TAB 3 Refills Prov:GÓMEZ MURRAY MD 11/01/23 Lisinopril (Lisinopril) 20 Mg Tab, 20 MG PO DAILY, #30 TAB Prov:MARCY DOBBINS MD 03/25/22 Nicotine (Nicoderm 21MG/24HR) 1 Patch Ph, 1 PATCH TOP DAILY, #28 PATCH 1 Refill Prov:JOAQUIN RICE MD 08/04/21 Current Medications Current Medications Medications (Trade) Dose Ordered Sig/Leonardo Route PRN Reason Start Time Stop Time Status Last Admin Ondansetron HCl (Zofran) 4 mg Q4HP PRN IV NAUSEA / VOMITING 03/29/24 01:15 Morphine Sulfate 2 mg Q4HPRN PRN IV SEVERE PAIN (7-10 PAIN SCALE) 03/29/24 01:15 03/29/24 05:05 Nitroglycerin (Ntrostat Sublingual) 0.4 mg Q5MINP PRN SL FOR CHEST PAIN 03/29/24 01:15 Morphine Sulfate 2 mg Q30M PRN IV FOR CHEST PAIN 03/29/24 01:15 Pantoprazole Sodium (Protonix) 40 mg BID IV 03/29/24 22:00 Sodium Chloride 1,000 ml @ 125 mls/hr Q8H IV 03/29/24 01:30 03/29/24 16:22 DC 03/29/24 10:11 Lactulose 30 ml Q6HR PO 03/29/24 06:00 03/29/24 12:04 DC 03/29/24 06:06 Ceftriaxone Sodium/Dextrose 50 ml @ 50 mls/hr DAILY IV 03/29/24 10:00 03/29/24 02:29 DC Furosemide (Lasix Tablet) 20 mg QAM PO 03/29/24 07:00 03/29/24 06:02 Levetiracetam (Keppra Tablet) 500 mg BID PO 03/29/24 10:00 Lisinopril (Zestril Tablet) 20 mg DAILY PO 03/29/24 10:00 03/29/24 10:08 Nicotine (Nicoderm 21MG/ 24HR) 1 patch DAILY TD 03/29/24 10:00 03/29/24 10:10 Spironolactone (Aldactone) 50 mg BID PO 03/29/24 10:00 03/29/24 10:08 Lorazepam (Ativan Inj) 1 mg Q5MINP PRN IV SEIZURES 03/29/24 02:45 Chlordiazepoxide HCl (Librium Capsule) 5 mg Q4HPRN PRN PO ALCOHOL WITHDRAWAL SYMPTOMS 03/29/24 02:45 Octreotide Acetate 500 mcg/ Sodium Chloride 100 ml @ 10 mls/hr Q10H IV 03/29/24 09:30 03/29/24 12:32 Ceftriaxone Sodium 50 ml @ 100 mls/hr DAILY@09 IV 03/30/24 09:00 Review of Systems Noncontributory Vital Signs Vital Signs Date Time Temp Pulse Resp B/P (MAP) Pulse Ox O2 Delivery O2 Flow Rate FiO2 03/29/24 12:39 97.7 86 16 130/66 (87) 97 97.7 03/29/24 08:00 Room Air* 0 21 Physical Exam Moderate built and nourished male in no acute distress Vital stable Lungs clear HEENT examination mild pallor no icterus Neck is supple Abdomen is soft this some fullness in the periumbilical area no gross ascites seen no rigidity no guarding no masses Extremities no edema Neuro grossly intact Labs/Diagnostic Data Labs Test 03/29/24 13:39 03/29/24 08:58 03/28/24 22:13 03/28/24 20:20 Range/Units White Blood Count 9.5 # 4.4-10.8 10^3/uL Red Blood Count 2.05 L 4.5-5.90 10^6/uL Hemoglobin 7.0 *L 13.5-17.5 g/dL Hematocrit 20.0 #L 41.0-53.0 % Mean Corpuscular Volume 97.7 80.0-100.0 fL Mean Corpuscular Hemoglobin 34.4 H 28.0-32.0 pg Mean Corpuscular Hemoglobin Concent 35.2 32.0-36.0 g/dL Red Cell Distribution Width 16.8 H 11.8-14.3 % Platelet Count 131 L 140-450 10^3/uL Mean Platelet Volume 7.4 6.9-10.8 fL Neutrophils (%) (Auto) 37.0-80.0 % Lymphocytes (%) (Auto) 10.0-50.0 % Monocytes (%) (Auto) 0.0-12.0 % Basophils (%) (Auto) 0.0-2.0 % Neutrophils # (Auto) 1.6-8.6 10 ^3/uL Lymphocytes # (Auto) 0.4-5.4 10 ^3/uL Monocytes # (Auto) 0-1.3 10 ^3/uL Differential Total Cells Counted 100.0 100 Neutrophils % (Manual) 47 37.0-80.0 Band Neutrophils % (Manual) 2 Lymphocytes % (Manual) 21 10.0-50.0 Monocytes % (Manual) 24 H 0-12 Eosinophils % (Manual) 6 0-7 Basophils % (Manual) 0 0.0-2.0 Metamyelocytes % (manual) 0 Myelocytes % (Manual) 0 Promyelocytes % (Manual) 0 Blast Cells % (Manual) 0 Reactive Lymphocytes 0 Platelet Estimate Decreased Prothrombin Time 17.2 H 9.3-11.8 sec Prothrombin Time INR 1.69 H 0.9-1.15 Sodium Level 129 L 136-145 mmol/L Potassium Level 2.9 L 3.5-5.1 mmol/L Chloride Level 92 L 98-107 mmol/L Carbon Dioxide Level 30 20-31 mmol/L Anion Gap 7 5-15 Blood Urea Nitrogen 23 9-23 mg/dL Creatinine 1.00 0.700-1.30 mg/dL Glomerular Filtration Rate Calc 95 >90 mL/min BUN/Creatinine Ratio 23.0 H 10.0-20.0 Serum Glucose 120 H 74-106 mg/dL Lactic Acid Level 1.5 0.4-2.0 mmol/L Calcium Level 8.2 L 8.7-10.4 mg/dL Magnesium Level 1.9 1.6-2.6 mg/dL Total Bilirubin 5.6 H 0.2-1.0 mg/dL Direct Bilirubin 3.8 H <0.3 mg/dL Aspartate Amino Transferase (AST) 70 H 13-40 U/L Alanine Aminotransferase (ALT) 42 H 7-40 U/L Alkaline Phosphatase 160 H 46-116 U/L Ammonia 58 H 11-32 umol/L Total Protein 5.8 5.7-8.2 g/dL Albumin 2.8 L 3.2-4.8 g/dL Lipase 59 H 12-53 U/L Plasma/Serum Blood Alcohol 4.6 <10 mg/dL Nucleated Red Blood Cells 2.0 % Smudge Cells 1 /100 WBC Urine Color Dark-yellow Yellow Urine Clarity Clear Clear Urine pH 6.0 5.0-9.0 Urine Specific [place] 1.019 1.001-1.035 Urine Protein Negative Negative Urine Ketones Negative Negative Urine Blood Negative Negative /uL Urine Nitrite Negative Negative Urine Bilirubin 1+ Negative Urine Urobilinogen 3 H Negative mg/dL Urine Leukocyte Esterase Negative Negative /uL Urine RBC <1 0 - 3 /hpf Urine WBC 3 0 - 3 /hpf Urine Squamous Epithelial Cells Few <5 /hpf Urine Bacteria None seen None Seen /hpf Urine Hyaline Casts Few 0 - 2 /lpf Urine Glucose Normal Normal mg/dL Urine Opiates Screen Neg NEGATIVE Urine Fentanyl Screen Neg NEGATIVE Urine Barbiturates Screen Neg NEGATIVE Urine Phencyclidine Screen Neg NEGATIVE Urine Amphetamines Screen Neg NEGATIVE Urine Benzodiazepines Screen Neg NEGATIVE Urine Cocaine Screen Neg NEGATIVE Urine Cannabinoids Screen Neg NEGATIVE Assessment 43-year-old male with a history of cirrhosis of the liver per with a history history of hypertension seizure disorder history of paracentesis in October came in with complaints of hematemesis a few episodes and found to be Hemoccult found to have a hemoglobin is 7.7 g patient has got transaminitis with a bilirubin of 6.5 and LFTs elevated. Clinical impression Cirrhosis of the liver with GI bleeding possible esophageal varices patient did not have any EGD evaluation anything recently or in the past as per the patient. Plan/Recommendation Monitor the hemoglobin PPIs Do an EGD evaluation because of the anemia and the hematemesis possible variceal bleeding to be ruled out and we will recommend EGD evaluation and further treatment accordingly The procedure risks benefits alternatives explained to the patient and agreeable Thank you ALAN Ma MD Mar 29, 2024 16:38
[2024-03-29] MEDS ORDERED: SODIUM CHLORIDE LOCK 10 ML ONE (16:51)
[2024-03-29] MEDS: LIDOCAINE VISCOUS 2% 15ML UD ONE (16:53)
[2024-03-29] MEDS: fentaNYL CITRATE 100 MCG/2 ML VL ONE (16:55)
[2024-03-29] MEDS: MIDAZOLAM HCL 5 MG/ML-1ML VIAL ONE (16:55)
--- NOTE | 2024-03-29 17:20 | DVHOP2 ---
Operative Report DATE OF PROCEDURE: 03/29/24 INDICATIONS FOR THE PROCEDURE: GI bleeding anemia history of cirrhosis of the liver with a hematemesis and hemoglobin of 7gm PROCEDURE PERFORMED: 1. Esophagogastroduodenoscopy and banding of large esophageal varices of the distal esophagus POSTOPERATIVE DIAGNOSIS: Large esophageal varices from lower mid esophagus down to the GE junction two larger columns and one small column with mild oozing and stigmata of hemorrhage INFORMED CONSENT: The risks and benefits and alternatives were explained to the patient and informed consent was obtained. PROCEDURE IN DETAIL: The patient was kept NPO after midnight. In the endoscopy room, he was given IV fentanyl 50 mg and Versed, 3 mg titrated slowly to get him sedated. Olympus gastroscope was passed through the oropharynx into the stomach and the duodenum, and the findings were as follows. Esophagus: Large esophageal varices distal in the distal esophagus three columns two large ones and one small stigmata of recent hemorrhage no gross bleeding seen at this time Six bands were put in the varices with good hemostasis and no bleeding at this time No esophagitis no ulcers Stomach: Fundus: Some old blood seen possibly from old bleeding from the varices Body and antrum Normal Pylorus normal Normal Duodenum Normal Endoscopic impression Large esophageal varices with stigmata of recent hemorrhage and hence esophageal banding done and six bands were put in Suggestions Watch for bleeding Follow the hemoglobin closely Liver functions were very bad we will recommend watch closely for hepatic encephalopathy and other complications Avoid ethanol Consider referring for a transplant listing if possible Prognosis guarded Thank you for asking me to take part in the care of this pleasant patient ALAN Ma MD Mar 29, 2024 17:20
[2024-03-29] MEDS: SODIUM CHLORIDE 0.9% 500 ML IV ONE (18:00)
[2024-03-29] MEDS: D5W/SOD CHLO 0.9% 1,000 ML IV SCH (19:15)
[2024-03-29] MEDS: POTASSIUM CHLORIDE 60 MEQ, LIDOCAINE 1% (LOCAL ANESTH.) 6 ML in SODIUM CHL 0.9% 500 ML IV ONE (20:28)
[2024-03-29 20:45] LABS: Hematocrit 19.8 % (41.0-53.0)
--- NOTE | 2024-03-29 21:00 | DVHPNRES ---
Progress Note Date Seen: Mar 29, 2024 Resident Creating Document: VERONIQUE NUR RESIDENT Medical Necessity Reason Pt with a Central, PICC or Fol: No Medical Necessity Reason Hemetemesis cirrhosis Subjective Review of Systems This is a 43-year-old male with a past medical history of hypertension, seizure disorder and recently alcohol-induced liver cirrhosis s/p 1st paracentesis in 10/2023 ( with 6 L drained) presented to the ED with hematemesis. According to the patient, he started having hematemesis Monday night to Monday morning. He vomited +normal gastric juice about grocery bags full. He started feeling dizzy afterwards was weak. Patient did not come to the emergency room the day of because he thought he had a stomach upset. , patient had a 2nd hematemesis on Monday past prompting patient to come to the ED for the evaluation and management. Patient denied any fever, abdominal pain, chest pain or shortness of breath, leg swelling, dysarthria or change in vision. Initial lab workup revealed leukocytosis WBC 18.0, severe anemia hgb: 7.7, hyponatremia sodium 127, potassium 3.6, transaminitis with serum bilirubin 6.5, AST 75, ALT 49, alkaline phosphatase 150 on, hypokalemia with albumin 3.0. His home medication include Lasix, spironolactone, Protonix. US abdomen revealed Hepatic cirrhosis/ hepatic steatosis. Constitutional: Denies fever no chills no feeling of malaise HEENT: Denies headache, ear pain, ear discharges, conjunctivitis, nasal discharge throat pain Cardiovascular: Denies chest pain, palpitation, orthopnea, PND, or pedal edema Respiratory: Denies shortness of breath, cough cough, sputum production, hemoptysis, GI: Hematemesis, No hematochezia or melena stool, : Denies frequency, urgency, hematuria, Endocrine: Denies unintentional weight gain or weight loss, feeling of hot flashes, Daniel: Denies easy bruising, bleeding disorders, epistaxis Musculoskeletal: Denies joint pains, muscle aches Psych: No evidence of depression, marcello, suicidal ideation Skin- denies acute rash or purpura Past Medical History: Per HPI alcoholic cirrhosis of liver, history of paracentesis, hypertension, seizure disorder Past Surgical History: Left knee surgery Family History:Noncontributory Past Social History:Patient lives at home with son, smoker, alcoholic, denies using drugs Objective vital signs Vital Sign Date Time Temp Pulse Resp B/P (MAP) Pulse Ox O2 Delivery O2 Flow Rate FiO2 03/29/24 19:26 88 12 117/35 (62) 99 03/29/24 17:34 Room Air 0 03/29/24 17:34 100 03/29/24 17:19 97.5 97.5 Total Intake and Output 03/28/24 03/28/24 03/29/24 15:00 23:00 07:00 Intake Total 1050 ml Balance 1050 ml medications Current Medications Medications Dose Ordered Sig/Leonardo Route Start Time Stop Time Status Last Admin Dose Admin Ondansetron HCl 4 mg Q4HP PRN IV 03/29/24 01:15 Morphine Sulfate 2 mg Q4HPRN PRN IV 03/29/24 01:15 03/29/24 05:05 2 MG Nitroglycerin 0.4 mg Q5MINP PRN SL 03/29/24 01:15 Morphine Sulfate 2 mg Q30M PRN IV 03/29/24 01:15 Pantoprazole Sodium 40 mg BID IV 03/29/24 22:00 Furosemide 20 mg QAM PO 03/29/24 07:00 Hold 03/29/24 06:02 20 MG Levetiracetam 500 mg BID PO 03/29/24 10:00 Nicotine 1 patch DAILY TD 03/29/24 10:00 03/29/24 10:10 1 PATCH Spironolactone 50 mg BID PO 03/29/24 10:00 Hold 03/29/24 10:08 50 MG Lorazepam 1 mg Q5MINP PRN IV 03/29/24 02:45 Chlordiazepoxide HCl 5 mg Q4HPRN PRN PO 03/29/24 02:45 Octreotide Acetate 500 mcg/ Sodium Chloride 100 ml @ 10 mls/hr Q10H IV 03/29/24 09:30 03/29/24 20:24 10 MLS/HR Ceftriaxone Sodium 50 ml @ 100 mls/hr DAILY@09 IV 03/30/24 09:00 Dextrose/Sodium Chloride 1,000 ml @ 100 mls/hr Q10H IV 03/29/24 19:15 Examination General examination- Not in acute distress, lying in bed. Not confused HEENT: PEERLA, no acute nasal discharge, scleral Icterus Chest: S1-S2 audible, regular rate and rhythem, murmur in 2LIC Lung: CTAB, no wheeze or rhonchi Abdomen: Nondistend, BS+, nontenderness, Musculoskeletal: no acute joint swelling or tenderness Extremity: Palm is pale, no leg edema Neurological: cranial nerves intact, no acute dysarthria or dysphagia Psychiatry-- Normal mood and affect Skin- no acute rash or purpura laboratory and microbiology Laboratory Tests 03/29/24 13:39 03/29/24 08:58 Test 03/29/24 08:58 Range/Units Serum Glucose 120 H 74-106 mg/dL Problem List/Assessment/Plan Problem List/Assessment/Plan Hematemesis possible variceal bleed in the setting of liver cirrhosis --> Hgb: 7.7--> 7.0 -> GI consult for EGD --> Octreotide --> Protonix Alcoholic cirrhosis of liver, history of paracentesis in November 11, 2023 --> MELD-Na: 20 points, 19.7 chance of 3 months mortality --> Elevated ammonia 58 -->continue lactulose 30 mL q.6h after EGD -->continue spironolactone 50 mg b.i.d. -->continue Lasix 20 mg q.d. Transaminitis --> Maddrey's discrimination function: 31.3 point, no need for glucocorticoid Hypertension -continue hydralazine 10 mg q.6h p.r.n. -continue lisinopril 20 mg p.o. d Continues Protonix Hypotension post EGD --> Monitor blood pressure closely Leukocytosis, rule out SBP --> folow up Blood culture --> Start ceftriaxone --> Lactulose Severe blood loss anemia --> likely secondary to variceal bleeding -->Hgb 7.7 --> 7 --> transfused 1 RBC pack Transaminitis likely due to alcoholic cirrhosis of liver -monitor CMP Hyponatremia likely dilutional, asymptomatic --> Expected in the setting of cirrhosis --> monitor BMP Code status: Full code Care discussed for more than 30 minutes Case and plan discussed with Dr. Stephenson Plan discussed with: Patient My Orders My Orders Orders - VERONIQUE NUR Procedure Category Date Status Time Blood Culture KARLA 03/29/24 Uncollected 08:42 Lactic Acid W/ Reflex LAB 03/30/24 Verified Order 04:00 Hemoglobin & LAB 03/29/24 In Process Hematocrit 21:00 Ammonia LAB 03/29/24 In Process 15:49 Date of Service: Mar 29, 2024 Billing Provider: OPAL RIBEIRO MD Common Visit Codes: [id number] INP/OBS CARE(HIGH) VERONIQUE NUR RESIDENT Mar 29, 2024 21:00 OPAL RIBEIRO MD Mar 31, 2024 23:16
[2024-03-29] MEDS: PANTOPRAZOLE 40 MG/10 ML VIAL INJ IV SCH (21:12)
[2024-03-30] VITALS (11 sets, daily range): BP systolic 120–141; BP diastolic 60–80; PULSE 85–99; RESP 16–20; TEMP 97.6–98.6; O2SAT 95–100
[2024-03-30 07:03] LABS: Hematocrit 23.1 % (41.0-53.0); Hemoglobin 8.1 g/dL (13.5-17.5)
[2024-03-30 07:06] LABS: Mean Corpuscular Hemoglobin 34.1 pg (28.0-32.0); Mean Corpuscular Hgb Conc. 35.2 g/dL (32.0-36.0); Platelet Count (auto) 124 10^3/uL (140-450); Red Blood Cells 2.39 10^6/uL (4.5-5.90); White Blood Cell 8.1 10^3/uL (4.4-10.8)
[2024-03-30 07:10] LABS: Basophils % (manual) 0 (0.0-2.0); Blast Cells 0; Metamyelocytes % 0; Myelocytes % 0; Promyelocytes % 0; Reactive Lymphocytes 0
[2024-03-30 07:33] LABS: Alanine Aminotransferase 36 U/L (7-40); Anion Gap 8 (5-15); BUN/Creatinine Ratio 21.4 (10.0-20.0); Blood Urea Nitrogen 18 mg/dL (9-23); Carbon Dioxide 26 mmol/L (20-31); Chloride 100 mmol/L (98-107); Potassium 3.6 mmol/L (3.5-5.1)
[2024-03-30 07:36] LABS: Albumin 2.7 g/dL (3.2-4.8); Alkaline Phosphatase 141 U/L (46-116); Aspartate Aminotransferase 59 U/L (13-40); Bilirubin, Total 6.8 mg/dL (0.2-1.0); Calcium 7.9 mg/dL (8.7-10.4); Glucose 109 mg/dL (74-106); Sodium 134 mmol/L (136-145); Total Protein 5.3 g/dL (5.7-8.2)
[2024-03-30 08:08] LABS: Band Neutrophils % (manual) 1; Eosinophils % (manual) 4 (0-7); Lymphocytes % (manual) 10 (10.0-50.0); Monocytes % (manual) 18 (0-12); Platelet Estimate Decreased
[2024-03-30] MEDS: cefTRIAXone 1GM/50ML D5W 50 ML IV SCH (10:23)
--- NOTE | 2024-03-30 19:13 | DVHPNRES ---
Progress Note Date Seen: Mar 30, 2024 Resident Creating Document: VERONIQUE NUR RESIDENT Medical Necessity Reason Pt with a Central, PICC or Fol: No Medical Necessity Reason Variceal bleeding status post EGD with banding Subjective Review of Systems Patient was seen and examined today by the bedside. He is doing better. He has not had any hematemesis since bending overall he is doing well. Patient also received 1 unit of packed red blood cells. His hemoglobin this morning had improved to 8.1 patient is feeling a lot better. He is still NPO. We will await instructions from the surgeon as went to resume clear liquid diet. Patient has no new complaints today. Lab values today shows some improvement: Ammonia 58---> 17, lipase 59---> 45 and K: 2.9 to 3.6. Patient will would love some water or clear fluids. Objective vital signs Vital Sign Date Time Temp Pulse Resp B/P (MAP) Pulse Ox O2 Delivery O2 Flow Rate FiO2 03/30/24 17:00 98.2 89 18 126/76 (93) 100 98.2 03/30/24 08:20 Room Air* 0 21 Total Intake and Output 03/29/24 03/29/24 03/30/24 15:00 23:00 07:00 Intake Total 540 ml 300 ml Balance 540 ml 300 ml medications Current Medications Medications Dose Ordered Sig/Leonardo Route Start Time Stop Time Status Last Admin Dose Admin Ondansetron HCl 4 mg Q4HP PRN IV 03/29/24 01:15 Morphine Sulfate 2 mg Q4HPRN PRN IV 03/29/24 01:15 03/30/24 03:36 2 MG Nitroglycerin 0.4 mg Q5MINP PRN SL 03/29/24 01:15 Morphine Sulfate 2 mg Q30M PRN IV 03/29/24 01:15 Pantoprazole Sodium 40 mg BID IV 03/29/24 22:00 03/30/24 10:23 40 MG Furosemide 20 mg QAM PO 03/29/24 07:00 Hold 03/29/24 06:02 20 MG Levetiracetam 500 mg BID PO 03/29/24 10:00 Spironolactone 50 mg BID PO 03/29/24 10:00 Hold 03/29/24 10:08 50 MG Lorazepam 1 mg Q5MINP PRN IV 03/29/24 02:45 Chlordiazepoxide HCl 5 mg Q4HPRN PRN PO 03/29/24 02:45 Octreotide Acetate 500 mcg/ Sodium Chloride 100 ml @ 10 mls/hr Q10H IV 03/29/24 09:30 03/30/24 10:43 10 MLS/HR Ceftriaxone Sodium 50 ml @ 100 mls/hr DAILY@09 IV 03/30/24 09:00 03/30/24 10:23 100 MLS/HR Dextrose/Sodium Chloride 1,000 ml @ 100 mls/hr Q10H IV 03/29/24 19:15 03/30/24 15:43 100 MLS/HR Nicotine 1 patch DAILY TD 03/31/24 10:00 Examination General examination- Not in acute distress, relaxing in bed s/p EGD with banding HEENT: PEERLA, no acute nasal discharge, sclera icterus Chest: S1-S2 audible, rate and rhythm regular, no murmur Lung: CTAB, no wheeze or rhonchi Abdomen:distend, BS+, nontender, no organomegaly Musculoskeletal: no acute joint swelling or tenderness Extremity: no leg edema Neurological: cranial nerves intact, no acute dysarthria or dysphagia Psychiatry-- Normal mood and affect Skin- no acute rash or purpura laboratory and microbiology Laboratory Tests 03/30/24 06:08 Test 03/30/24 06:08 Range/Units Serum Glucose 109 H 74-106 mg/dL Microbiology Date/Time Source Procedure Growth Status 03/29/24 08:58 Blood Blood Culture - Preliminary NO GROWTH AFTER 24 HOURS OF INCUBATION. Resulted Labs and/or images reviewed: Labs reviewed by me, Image(s) reviewed by me Problem List/Assessment/Plan Problem List/Assessment/Plan Hematemesis possible variceal bleed in the setting of liver cirrhosis --> Hgb: 7.7--> 7.0 --> S/p blood transfusion -> S/p Esophagogastroduodenoscopy and banding of large esophageal varices of the distal esophagus --> Octreotide --> Protonix --> clear fluid diet, advance as can tolerate Alcoholic cirrhosis of liver, history of paracentesis in November 11, 2023 Severe alcohol use disorder --> MELD-Na: 20 points, 19.7% chance of 3 months mortality --> Elevated ammonia 58--> 17 -->continue lactulose 30 mL q.6h after EGD -->continue spironolactone 50 mg b.i.d. -->continue Lasix 20 mg q.d. --> counseled on cessation for 18 minutes Transaminitis --> Aliyahjacqeu's discrimination function: 31.3 point, no need for glucocorticoid Hypertension --> continue hydralazine 10 mg q.6h p.r.n. -->Hold lisinopril 20 mg p.o. d (hold) --> Monitor BP Hypotension post EGD--> IMPROVED --> Monitor blood pressure closely Leukocytosis, rule out SBP --> resolved --> folow up Blood culture --> Start ceftriaxone --> Lactulose Severe blood loss anemia --> likely secondary to variceal bleeding -->Hgb 7--> 8.1 --> s/p 1 RBC pack --> Monitor H/Hct in the AM Transaminitis likely due to alcoholic cirrhosis of liver -->liver enzymes improving Hyponatremia likely dilutional, asymptomatic --> Expected in the setting of cirrhosis --> monitor BMP Code status: Full code Care discussed for 20 minutes Case and plan discussed with Dr. Vogt Plan discussed with: Patient, Spouse, Other (Nurse) My Orders My Orders Orders - VERONIQUE NUR RESIDENT Procedure Category Date Status Time Nicotine 14mg/24hr PHA 03/31/24 In Process (Nicoderm 14mg/24hr) 10:00 Clear Liq Diet DIET 03/30/24 Transmitted Dinner Addendum Addendum Addendum I was physically present for the stephens portions of the service provided to patient by THE RESIDENT. I have reviewed the documentation, discussed the case with resident and agree with the resident's documentation except as noted. Also the patient's clinical case was discussed with the patient's nurse. This medical document was created using an electronic medical record system with computerized dictation system. Although this document has been carefully reviewed, there might still be some phonetic and typographical errors. These areas are purely typographical due to imperfections of the software programs, and do not reflect any compromise in the patient's medical care. Late signature. Date of Service: Mar 30, 2024 Billing Provider: SANDRA VOGT MD Common Visit Codes: [id number] INP/OBS CARE(HIGH) Secondary Visit Codes: [id number] CHNG SMOKING >10MIN (Counseled on alcohol use cessation for 18 minute), [id number] CARE PLAN 30 MINUTES (20 minutes) VERONIQUE NUR RESIDENT Mar 30, 2024 19:13 SANDRA VOGT MD Apr 01, 2024 05:47
--- NOTE | 2024-03-30 22:45 | DVHPN2 ---
Progress Note - Dictate Date Seen: Mar 30, 2024 Medical Necessity Reason Pt with a Central, PICC or Fol: No Subjective Doing fairly without any further bleeding no nausea vomiting no stomach pains hungry wants to eat vital signs Vital Sign Date Time Temp Pulse Resp B/P (MAP) Pulse Ox O2 Delivery O2 Flow Rate FiO2 03/30/24 21:16 95 18 127/85 03/30/24 21:00 98.1 100 98.1 03/30/24 08:20 Room Air* 0 21 Total Intake and Output 03/29/24 03/29/24 03/30/24 15:00 23:00 07:00 Intake Total 540 ml 300 ml Balance 540 ml 300 ml medications Current Medications Medications Dose Ordered Sig/Leonardo Route Start Time Stop Time Status Last Admin Dose Admin Ondansetron HCl 4 mg Q4HP PRN IV 03/29/24 01:15 Morphine Sulfate 2 mg Q4HPRN PRN IV 03/29/24 01:15 03/30/24 21:16 2 MG Nitroglycerin 0.4 mg Q5MINP PRN SL 03/29/24 01:15 Morphine Sulfate 2 mg Q30M PRN IV 03/29/24 01:15 Pantoprazole Sodium 40 mg BID IV 03/29/24 22:00 03/30/24 21:01 40 MG Furosemide 20 mg QAM PO 03/29/24 07:00 Hold 03/29/24 06:02 20 MG Levetiracetam 500 mg BID PO 03/29/24 10:00 Spironolactone 50 mg BID PO 03/29/24 10:00 Hold 03/29/24 10:08 50 MG Lorazepam 1 mg Q5MINP PRN IV 03/29/24 02:45 Chlordiazepoxide HCl 5 mg Q4HPRN PRN PO 03/29/24 02:45 Octreotide Acetate 500 mcg/ Sodium Chloride 100 ml @ 10 mls/hr Q10H IV 03/29/24 09:30 03/30/24 21:02 10 MLS/HR Ceftriaxone Sodium 50 ml @ 100 mls/hr DAILY@09 IV 03/30/24 09:00 03/30/24 10:23 100 MLS/HR Dextrose/Sodium Chloride 1,000 ml @ 100 mls/hr Q10H IV 03/29/24 19:15 03/30/24 15:43 100 MLS/HR Nicotine 1 patch DAILY TD 03/31/24 10:00 objective Abdomen soft nontender no masses Hemoglobin is stable No nausea vomiting or hematemesis or Hematochezia laboratory and microbiology Laboratory Tests 03/30/24 06:08 Test 03/30/24 06:08 Range/Units Serum Glucose 109 H 74-106 mg/dL Assessment/Plan 43-year-old male with a history of cirrhosis of the liver per with a history history of hypertension seizure disorder history of paracentesis in October came in with complaints of hematemesis a few episodes and found to be Hemoccult found to have a hemoglobin is 7.7 g patient has got transaminitis with a bilirubin of 6.5 and LFTs elevated. Clinical impression Cirrhosis of the liver with GI bleeding possible esophageal varices patient did not have any EGD evaluation anything recently or in the past as per the patient. Patient is doing fine after endoscopy and depending no further bleeding and no stomach pains no abdominal discomfort and abdomen is soft nontender Plans are Increase the feeding and see the response Close follow-up for his liver functions and watch closely for bleeding and may need rebounding in case bleeding recurs especially Plan discussed with: Patient ALAN MCDONALD MD Mar 30, 2024 22:45
[2024-03-31 05:00] VITALS: BP 127/78; PULSE 96; RESP 18; TEMP 98; O2SAT 97
[2024-03-31 06:38] LABS: Hemoglobin 7.8 g/dL (13.5-17.5); White Blood Cell 8.4 10^3/uL (4.4-10.8)
[2024-03-31 06:40] LABS: Hematocrit 22.7 % (41.0-53.0); Mean Corpuscular Hemoglobin 33.6 pg (28.0-32.0); Mean Corpuscular Hgb Conc. 34.5 g/dL (32.0-36.0); Mean Corpuscular Volume 97.6 fL (80.0-100.0); Platelet Count (auto) 124 10^3/uL (140-450); Red Blood Cells 2.33 10^6/uL (4.5-5.90); Red Cell Distribution Width 18.6 % (11.8-14.3)
[2024-03-31 06:52] LABS: Basophils % (manual) 0 (0.0-2.0); Blast Cells 0; Metamyelocytes % 0; Myelocytes % 0; Promyelocytes % 0; Reactive Lymphocytes 0
[2024-03-31 06:53] LABS: Anion Gap 5 (5-15); BUN/Creatinine Ratio 13.3 (10.0-20.0); Blood Urea Nitrogen 11 mg/dL (9-23); Carbon Dioxide 27 mmol/L (20-31); Chloride 101 mmol/L (98-107); Glucose 94 mg/dL (74-106); Potassium 3.6 mmol/L (3.5-5.1)
[2024-03-31 06:56] LABS: Alanine Aminotransferase 42 U/L (7-40); Albumin 2.4 g/dL (3.2-4.8); Alkaline Phosphatase 130 U/L (46-116); Aspartate Aminotransferase 62 U/L (13-40); Bilirubin, Total 5.9 mg/dL (0.2-1.0); Calcium 7.9 mg/dL (8.7-10.4); Sodium 133 mmol/L (136-145); Total Protein 5.2 g/dL (5.7-8.2)
[2024-03-31 07:41] LABS: Band Neutrophils % (manual) 1; Eosinophils % (manual) 7 (0-7); Lymphocytes % (manual) 16 (10.0-50.0); Monocytes % (manual) 17 (0-12)
[2024-03-31 07:42] LABS: Platelet Estimate Decreased
[2024-03-31 07:55] VITALS: PULSE 108
[2024-03-31 09:00] VITALS: BP 131/79; PULSE 90; RESP 18; TEMP 98.1; O2SAT 99
[2024-03-31] MEDS: NICOTINE 14 MG/24HR TOPICAL PATCH TD SCH (10:04)
--- NOTE | 2024-03-31 15:01 | DVHPN2 ---
Progress Note - Dictate Date Seen: Mar 31, 2024 Medical Necessity Reason Pt with a Central, PICC or Fol: No Subjective Doing fairly without any further bleeding no nausea vomiting no stomach pains hungry wants to eat more Tolerated feeds well vital signs Vital Sign Date Time Temp Pulse Resp B/P (MAP) Pulse Ox O2 Delivery O2 Flow Rate FiO2 03/31/24 09:00 98.1 90 18 131/79 (96) 99 98.1 03/31/24 08:00 Room Air* 0 21 Total Intake and Output 03/30/24 03/30/24 03/31/24 15:00 23:00 07:00 Intake Total 50 ml 2320 ml 1000 ml Balance 50 ml 2320 ml 1000 ml medications Current Medications Medications Dose Ordered Sig/Leonardo Route Start Time Stop Time Status Last Admin Dose Admin Ondansetron HCl 4 mg Q4HP PRN IV 03/29/24 01:15 Morphine Sulfate 2 mg Q4HPRN PRN IV 03/29/24 01:15 03/31/24 04:06 2 MG Nitroglycerin 0.4 mg Q5MINP PRN SL 03/29/24 01:15 Morphine Sulfate 2 mg Q30M PRN IV 03/29/24 01:15 Pantoprazole Sodium 40 mg BID IV 03/29/24 22:00 03/31/24 10:04 40 MG Furosemide 20 mg QAM PO 03/29/24 07:00 Hold 03/29/24 06:02 20 MG Levetiracetam 500 mg BID PO 03/29/24 10:00 03/31/24 10:04 500 MG Spironolactone 50 mg BID PO 03/29/24 10:00 Hold 03/29/24 10:08 50 MG Lorazepam 1 mg Q5MINP PRN IV 03/29/24 02:45 Chlordiazepoxide HCl 5 mg Q4HPRN PRN PO 03/29/24 02:45 Ceftriaxone Sodium 50 ml @ 100 mls/hr DAILY@09 IV 03/30/24 09:00 03/31/24 10:05 100 MLS/HR Nicotine 1 patch DAILY TD 03/31/24 10:00 03/31/24 10:04 1 PATCH objective Abdomen soft nontender no masses Hemoglobin is stable No nausea vomiting or hematemesis or Hematochezia laboratory and microbiology Laboratory Tests 03/31/24 05:39 Test 03/31/24 05:39 Range/Units Serum Glucose 94 74-106 mg/dL Assessment/Plan 43-year-old male with a history of cirrhosis of the liver per with a history history of hypertension seizure disorder history of paracentesis in October came in with complaints of hematemesis a few episodes and found to be Hemoccult found to have a hemoglobin is 7.7 g patient has got transaminitis with a bilirubin of 6.5 and LFTs elevated. Clinical impression Cirrhosis of the liver with GI bleeding possible esophageal varices patient did not have any EGD evaluation anything recently or in the past as per the patient. Plans are Increase the feeding and see the response on monitor the hemoglobin Close follow-up for his liver functions and watch closely for bleeding and may need rebounding in case bleeding recurs especially Plan discussed with: Patient ALAN MCDONALD MD Mar 31, 2024 15:01
--- NOTE | 2024-03-31 16:13 | DVHPNRES ---
Progress Note Date Seen: Mar 31, 2024 Resident Creating Document: HENRY LITTLE RESIDENT Medical Necessity Reason Pt with a Central, PICC or Fol: No Subjective Review of Systems Patient was seen and examined at bedside. He states feeling good, denied any significant abdominal pain, nausea, vomiting, melena, hematemesis. He is currently tolerating soft diet. , Hemoglobin dropped from 8.1-7.8, we will continue to monitor. LFTs are trending down. Objective vital signs Vital Sign Date Time Temp Pulse Resp B/P (MAP) Pulse Ox O2 Delivery O2 Flow Rate FiO2 03/31/24 09:00 98.1 90 18 131/79 (96) 99 98.1 03/31/24 08:00 Room Air* 0 21 Total Intake and Output 03/30/24 03/30/24 03/31/24 15:00 23:00 07:00 Intake Total 50 ml 2320 ml 1000 ml Balance 50 ml 2320 ml 1000 ml medications Current Medications Medications Dose Ordered Sig/Leonardo Route Start Time Stop Time Status Last Admin Dose Admin Ondansetron HCl 4 mg Q4HP PRN IV 03/29/24 01:15 Morphine Sulfate 2 mg Q4HPRN PRN IV 03/29/24 01:15 03/31/24 04:06 2 MG Nitroglycerin 0.4 mg Q5MINP PRN SL 03/29/24 01:15 Morphine Sulfate 2 mg Q30M PRN IV 03/29/24 01:15 Pantoprazole Sodium 40 mg BID IV 03/29/24 22:00 03/31/24 10:04 40 MG Furosemide 20 mg QAM PO 03/29/24 07:00 Hold 03/29/24 06:02 20 MG Levetiracetam 500 mg BID PO 03/29/24 10:00 03/31/24 10:04 500 MG Spironolactone 50 mg BID PO 03/29/24 10:00 Hold 03/29/24 10:08 50 MG Lorazepam 1 mg Q5MINP PRN IV 03/29/24 02:45 Chlordiazepoxide HCl 5 mg Q4HPRN PRN PO 03/29/24 02:45 Ceftriaxone Sodium 50 ml @ 100 mls/hr DAILY@09 IV 03/30/24 09:00 03/31/24 10:05 100 MLS/HR Nicotine 1 patch DAILY TD 03/31/24 10:00 03/31/24 10:04 1 PATCH Examination HEENT: PEERLA, no acute nasal discharge, sclera icterus Chest: S1-S2 audible, rate and rhythm regular, no murmur Lung: CTAB, no wheeze or rhonchi Abdomen:distend, BS+, nontender, no organomegaly Musculoskeletal: no acute joint swelling or tenderness Extremity: no leg edema Neurological: cranial nerves intact, no acute dysarthria or dysphagia Psychiatry-- Normal mood and affect Skin- no acute rash or purpura laboratory and microbiology Laboratory Tests 03/31/24 05:39 Test 03/31/24 05:39 Range/Units Serum Glucose 94 74-106 mg/dL Microbiology Date/Time Source Procedure Growth Status 03/29/24 08:58 Blood Blood Culture - Preliminary NO GROWTH AFTER 48 HOURS OF INCUBATION. Resulted Labs and/or images reviewed: Labs reviewed by me, Image(s) reviewed by me Problem List/Assessment/Plan Problem List/Assessment/Plan Hematemesis possible variceal bleed in the setting of liver cirrhosis --> Hgb: 7.7--> 7.0 -> 8.1->7.8 --> S/p blood transfusion -> S/p Esophagogastroduodenoscopy and banding of large esophageal varices of the distal esophagus --> Octreotide, discontinue --> Protonix --> clear fluid diet, advance as can tolerate, not tolerating soft diet Alcoholic cirrhosis of liver, history of paracentesis in November 11, 2023 Severe alcohol use disorder --> MELD-Na: 20 points, 19.7 chance of 3 months mortality --> Elevated ammonia 58--> 17 -->continue lactulose 30 mL q.6h after EGD -->continue spironolactone 50 mg b.i.d., held -->continue Lasix 20 mg q.d., held --> counseled on alcohol use cessation Transaminitis --> Maddrey's discrimination function: 31.3 point, no need for glucocorticoid Hypertension --> continue hydralazine 10 mg q.6h p.r.n. -->Hold lisinopril 20 mg p.o. d (hold) --> Monitor BP Hypotension post EGD--> IMPROVED --> Monitor blood pressure closely Leukocytosis, rule out SBP --> resolved --> folow up Blood culture --> Start ceftriaxone --> Lactulose Severe blood loss anemia --> likely secondary to variceal bleeding -->Hgb 7--> 8.1 --> s/p 1 RBC pack --> Monitor H/Hct in the AM Transaminitis likely due to alcoholic cirrhosis of liver -->liver enzymes improving Hyponatremia likely dilutional, asymptomatic --> Expected in the setting of cirrhosis --> monitor BMP Case and plan discussed with Dr. Vogt Plan discussed with: Patient, Other (RN) Addendum Addendum Addendum I was physically present for the stephens portions of the service provided to patient by THE RESIDENT. I have reviewed the documentation, discussed the case with resident and agree with the resident's documentation except as noted. Also the patient's clinical case was discussed with the patient's nurse. This medical document was created using an electronic medical record system with computerized dictation system. Although this document has been carefully reviewed, there might still be some phonetic and typographical errors. These areas are purely typographical due to imperfections of the software programs, and do not reflect any compromise in the patient's medical care. Late signature. Date of Service: Mar 31, 2024 Billing Provider: SANDRA VOGT MD Common Visit Codes: [id number] INP/OBS CARE(HIGH) HENRY LITTLE RESIDENT Mar 31, 2024 16:13 SANDRA VOGT MD Apr 01, 2024 05:49
[2024-03-31 20:00] VITALS: PULSE 109; PULSE 99; RESP 18; O2SAT 100
[2024-03-31 22:00] VITALS: BP 133/81; PULSE 99; RESP 18; TEMP 98.8; O2SAT 100
[2024-04-01 04:19] VITALS: BP 104/56; PULSE 96; RESP 18; TEMP 98.3; O2SAT 93
[2024-04-01 06:32] LABS: Alanine Aminotransferase 38 U/L (7-40); Anion Gap 4 (5-15); BUN/Creatinine Ratio 12.9 (10.0-20.0); Blood Urea Nitrogen 11 mg/dL (9-23); Carbon Dioxide 25 mmol/L (20-31); Chloride 102 mmol/L (98-107); Glucose 97 mg/dL (74-106); Potassium 3.8 mmol/L (3.5-5.1)
[2024-04-01 06:36] LABS: Hematocrit 22.2 % (41.0-53.0); Hemoglobin 7.6 g/dL (13.5-17.5)
[2024-04-01 06:45] LABS: Albumin 2.4 g/dL (3.2-4.8); Alkaline Phosphatase 137 U/L (46-116); Aspartate Aminotransferase 52 U/L (13-40); Bilirubin, Total 3.9 mg/dL (0.2-1.0); Calcium 7.9 mg/dL (8.7-10.4); Sodium 131 mmol/L (136-145); Total Protein 5.1 g/dL (5.7-8.2)
[2024-04-01 08:00] VITALS: PULSE 90
[2024-04-01 09:00] VITALS: BP 131/86; PULSE 101; RESP 17; TEMP 98.2; O2SAT 94
[2024-04-01 13:14] VITALS: BP 101/48; PULSE 99; RESP 16; TEMP 99; O2SAT 97
[2024-04-01 15:24] LABS: Hematocrit 25.8 % (41.0-53.0); Hemoglobin 8.7 g/dL (13.5-17.5)
[2024-04-01] MEDS ORDERED: KEP500T PO (16:59)
[2024-04-01] MEDS ORDERED: NICO14DI9 TD (16:59)
[2024-04-01 17:18] VITALS: BP 123/79; PULSE 94; RESP 17; TEMP 98; O2SAT 95
--- NOTE | 2024-04-01 21:50 | DVHDSRES ---
Discharge Summary Date of Admission Resident Creating Document: HENRY LITTLE RESIDENT Mar 29, 2024 at 01:18 Date of Discharge: Apr 01, 2024 Admitting Diagnosis ALCOHOL-INDUCED LIVER CIRRHOSIS Hematemesis Acute blood loss anemia Labs/Diagnostic Data: Laboratory Results Test 04/01/24 14:23 04/01/24 05:15 03/31/24 05:39 03/30/24 06:08 Hemoglobin 8.7 g/dL (13.5-17.5) Hematocrit 25.8 % (41.0-53.0) Reticulocyte Count (auto) 14.94 % (0.5-1.5) Sodium Level 131 mmol/L (136-145) Potassium Level 3.8 mmol/L (3.5-5.1) Chloride Level 102 mmol/L (98-107) Carbon Dioxide Level 25 mmol/L (20-31) Anion Gap 4 (5-15) Blood Urea Nitrogen 11 mg/dL (9-23) Creatinine 0.85 mg/dL (0.700-1.30) Glomerular Filtration Rate Calc 110 mL/min (>90) BUN/Creatinine Ratio 12.9 (10.0-20.0) Serum Glucose 97 mg/dL (74-106) Calcium Level 7.9 mg/dL (8.7-10.4) Total Bilirubin 3.9 mg/dL (0.2-1.0) Aspartate Amino Transferase (AST) 52 U/L (13-40) Alanine Aminotransferase (ALT) 38 U/L (7-40) Alkaline Phosphatase 137 U/L (46-116) Total Protein 5.1 g/dL (5.7-8.2) Albumin 2.4 g/dL (3.2-4.8) White Blood Count 8.4 10^3/uL (4.4-10.8) Red Blood Count 2.33 10^6/uL (4.5-5.90) Mean Corpuscular Volume 97.6 fL (80.0-100.0) Mean Corpuscular Hemoglobin 33.6 pg (28.0-32.0) Mean Corpuscular Hemoglobin Concent 34.5 g/dL (32.0-36.0) Red Cell Distribution Width 18.6 % (11.8-14.3) Platelet Count 124 10^3/uL (140-450) Mean Platelet Volume 7.4 fL (6.9-10.8) Neutrophils (%) (Auto) % (37.0-80.0) Lymphocytes (%) (Auto) % (10.0-50.0) Monocytes (%) (Auto) % (0.0-12.0) Basophils (%) (Auto) % (0.0-2.0) Neutrophils # (Auto) 10 ^3/uL (1.6-8.6) Lymphocytes # (Auto) 10 ^3/uL (0.4-5.4) Monocytes # (Auto) 10 ^3/uL (0-1.3) Differential Total Cells Counted 100.0 (100) Neutrophils % (Manual) 59 (37.0-80.0) Band Neutrophils % (Manual) 1 Lymphocytes % (Manual) 16 (10.0-50.0) Monocytes % (Manual) 17 (0-12) Eosinophils % (Manual) 7 (0-7) Basophils % (Manual) 0 (0.0-2.0) Metamyelocytes % (manual) 0 Myelocytes % (Manual) 0 Promyelocytes % (Manual) 0 Blast Cells % (Manual) 0 Reactive Lymphocytes 0 Platelet Estimate Decreased Lactic Acid Level 0.9 mmol/L (0.4-2.0) Lipase 45 U/L (12-53) Test 03/29/24 20:13 03/29/24 08:58 03/28/24 22:13 03/28/24 20:20 Ammonia 17 umol/L (11-32) Prothrombin Time 17.2 sec (9.3-11.8) Prothrombin Time INR 1.69 (0.9-1.15) Magnesium Level 1.9 mg/dL (1.6-2.6) Direct Bilirubin 3.8 mg/dL (<0.3) Plasma/Serum Blood Alcohol 4.6 mg/dL (<10) Nucleated Red Blood Cells 2.0 % Smudge Cells 1 /100 WBC Urine Color Dark-yellow (Yellow) Urine Clarity Clear (Clear) Urine pH 6.0 (5.0-9.0) Urine Specific [place] 1.019 (1.001-1.035) Urine Protein Negative (Negative) Urine Ketones Negative (Negative) Urine Blood Negative /uL (Negative) Urine Nitrite Negative (Negative) Urine Bilirubin 1+ (Negative) Urine Urobilinogen 3 mg/dL (Negative) Urine Leukocyte Esterase Negative /uL (Negative) Urine RBC <1 /hpf (0 - 3) Urine WBC 3 /hpf (0 - 3) Urine Squamous Epithelial Cells Few /hpf (<5) Urine Bacteria None seen /hpf (None Seen) Urine Hyaline Casts Few /lpf (0 - 2) Urine Glucose Normal mg/dL (Normal) Urine Opiates Screen Neg (NEGATIVE) Urine Fentanyl Screen Neg (NEGATIVE) Urine Barbiturates Screen Neg (NEGATIVE) Urine Phencyclidine Screen Neg (NEGATIVE) Urine Amphetamines Screen Neg (NEGATIVE) Urine Benzodiazepines Screen Neg (NEGATIVE) Urine Cocaine Screen Neg (NEGATIVE) Urine Cannabinoids Screen Neg (NEGATIVE) Other Laboratory Tests 04/01/24 14:23 04/01/24 05:15 03/31/24 05:39 Brief Hx & Hospital Course: This 43-year-old male with a past medical history of hypertension, seizure disorder and recently alcohol-induced liver cirrhosis s/p 1st paracentesis in 10/2023 ( 6 L drained) presented to the ED with hematemesis. After two episode of hemetemesis, he became dizzy and weak thus prompting visit to the ED. Patient denied any fever, abdominal pain, chest pain or shortness of breath, leg swelling, dysarthria or change in vision. Initial lab workup revealed leukocytosis WBC 18.0, severe anemia hgb: 7.7, hyponatremia sodium 127, potassium 3.6, transaminitis with serum bilirubin 6.5, AST 75, ALT 49, alkaline phosphatase 150 on, hypokalemia with albumin 3.0. His home medication include Lasix, spironolactone, Protonix. US abdomen revealed Hepatic cirrhosis/ hepatic steatosis. Patient had an EGD which revealed areas of variceal bleeding.Had banding done without any postop was uncomplicated. Hemoglobin and hematocrit were checked regularly initially had gone down to 7.6. A repeart H/Hct was 8.7/25.8. 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 General examination- Not in acute distress, relaxing in bed s/p EGD with banding HEENT: PEERLA, no acute nasal discharge, sclera icterus Chest: S1-S2 audible, rate and rhythm regular, no murmur Lung: CTAB, no wheeze or rhonchi Abdomen:distend, BS+, nontender, no organomegaly Musculoskeletal: no acute joint swelling or tenderness Extremity: no leg edema Neurological: cranial nerves intact, no acute dysarthria or dysphagia Psychiatry-- Normal mood and affect Skin- no acute rash or purpura Diagnosis Hematemesis possible variceal bleed in the setting of liver cirrhosis s/p banding Alcoholic cirrhosis of liver, history of paracentesis in November 11, 2023 Transaminitis Hypertension Hypotension post EGD, resolved Leukocytosis, rule out SBP Severe blood loss anemia Transaminitis likely due to alcoholic cirrhosis of liver Hyponatremia likely dilutional, asymptomatic Patient advised to follow up at the discharge Clinic within a week. And he is also advised to follow up with the GI doctor for continuous monitoring of his liver function. Discharge plan discussed with Dr. Stephenson. Consults/Reason for consult Cirrhosis and hemetemesis Operations or Procedures Patient: JOHANA MEJIA Acct: [id number] : 1980 Loc: [facility] Age/Sex: 43/M Room: [facility] / Bed: Attending Phy: VERONIQUE NUR RESIDENT Operative Report DATE OF PROCEDURE: 03/29/24 INDICATIONS FOR THE PROCEDURE: GI bleeding anemia history of cirrhosis of the liver with a hematemesis and hemoglobin of 7gm PROCEDURE PERFORMED: 1. Esophagogastroduodenoscopy and banding of large esophageal varices of the distal esophagus POSTOPERATIVE DIAGNOSIS: Large esophageal varices from lower mid esophagus down to the GE junction two larger columns and one small column with mild oozing and stigmata of hemorrhage INFORMED CONSENT: The risks and benefits and alternatives were explained to the patient and informed consent was obtained. PROCEDURE IN DETAIL: The patient was kept NPO after midnight. In the endoscopy room, he was given IV fentanyl 50 mg and Versed, 3 mg titrated slowly to get him sedated. Olympus gastroscope was passed through the oropharynx into the stomach and the duodenum, and the findings were as follows. Esophagus: Large esophageal varices distal in the distal esophagus three columns two large ones and one small stigmata of recent hemorrhage no gross bleeding seen at this time Six bands were put in the varices with good hemostasis and no bleeding at this time No esophagitis no ulcers Stomach: Fundus: Some old blood seen possibly from old bleeding from the varices Body and antrum Normal Pylorus normal Normal Duodenum Normal Endoscopic impression Large esophageal varices with stigmata of recent hemorrhage and hence esophageal banding done and six bands were put in Suggestions Watch for bleeding Follow the hemoglobin closely Liver functions were very bad we will recommend watch closely for hepatic encephalopathy and other complications Avoid ethanol Consider referring for a transplant listing if possible Prognosis guarded Thank you for asking me to take part in the care of this pleasant patient ALAN Ma MD Mar 29, 2024 17:20 DICTATED BY:ALAN MCDONALD MD DICTATED DATE/TIME:03/29/24 1720 PATIENT: JOHANA MEJIA AACCT: [id number] UNIT: [id number] : 1980 LOC: TELE ROOM / BED: [address] [place] [address] AGE / SEX: 43 / M ADM STATUS: ADM IN SERVICE 012 ORDERING PHYSICIAN: JIM NOE RESIDENT PROCEDURE(s): ABDL - ABDOMEN LIMITED REASON: HEMATEMESIS ORDER NUMBER(s): [id number], ACCESSION NUMBER(s): [id number] INDICATION: HEMATEMESIS TECHNIQUE: Multiple real-time sonographic images of the abdomen were obtained. COMPARISON: None FINDINGS: Liver appears cirrhotic. The liver measures 15.6 cm. No intrahepatic biliary ductal dilatation is noted. Gallbladder not visualized. The right kidney measures 11cm. No hydronephrosis. T The pancreas is not well visualized due to obscuration from bowel gas. The visualized portions of the IVC and aorta are grossly unremarkable. IMPRESSION: Hepatic cirrhosis/ hepatic steatosis. ATED BY: MICHELLE KONG MD DICTATED DATE/TIME: 03/29/24 0400 Condition at Discharge: Stable Final Diagnosis/Problems List Alcohol induced liver Cirrhosis Hematemesis Acute blood loss anemia Discharge Disposition: Home Discharge Instruct/Medications Diet: Regular, See Comment Activity: No Restrictions, As Tolerated Follow Up/Referral: 7 days at the discharge Discharge Statement: "Patient was advised to return to the ER or call 911 if any headaches, dizziness, shortness of breath, chest pain, abdominal pain, bleeding, fevers, or worsening of medical condition. Patient was counseled about treatment plan, medications, possible side effects, patientverbalized understanding. All questions were answered to the best of my ability. This discharge took greater then 30 minutes in planning, reviewing documentation, counseling the patient, and discussing with other team members." ASSESSMENT ASSESSMENT Assessment Alcohol induced liver Cirrhosis Hematemesis Date of Service: Apr 01, 2024 Billing Provider: OPAL RIBEIRO MD Common Visit Codes: [id number] DISCH DAY >30min VERONIQUE NUR RESIDENT Apr 01, 2024 21:50 OPAL RIBEIRO MD Apr 03, 2024 10:11
== END 2024-04-01 17:40 | disposition home or self-care (01) | DRG 280 ==
LOC: ER 20:07 → TELE 03-29 01:18 → TELE-WESTW 03-29 01:18
PROVIDERS: ADMIT Student in an Organized Health Care Education/Training Program; ATTEND Student in an Organized Health Care Education/Training Program
PROC: 06L38CZ Occlusion of Esophageal Vein with Extraluminal Device, Via Natural or Artificial Opening Endoscopic (ICD-10-PCS; 2024-03-29)
PROC: 30233N1 Transfusion of Nonautologous Red Blood Cells into Peripheral Vein, Percutaneous Approach (ICD-10-PCS; principal; 2024-03-30)
DX: K70.30 Alcoholic cirrhosis of liver without ascites (principal); I85.11 Secondary esophageal varices with bleeding; E87.1 Hypo-osmolality and hyponatremia; D62 Acute posthemorrhagic anemia; D72.829 Elevated white blood cell count, unspecified; G40.909 Epilepsy, unspecified, not intractable, without status epilepticus; I10 Essential (primary) hypertension; F17.210 Nicotine dependence, cigarettes, uncomplicated; F10.20 Alcohol dependence, uncomplicated; Z82.49 Family history of ischemic heart disease and other diseases of the circulatory system; Z83.3 Family history of diabetes mellitus
CPT/HCPCS: 36415; 43244; 76705; 80053; 80307; 80320; 81001; 82140; 82248; 83605; 83690; 83735; 85007; 85014; 85018; 85027; 85045; 85610; 86850; 86900; 86901; 86920; 87040; G0378; J2003; J2250; J2470; J7042

== ENCOUNTER 2024-04-02 23:37 | Inpatient (IN) | payer OTHER, MEDICAID ==
[~2024-04-02] VITALS: Ht 185.4 cm; Wt 93.5 kg
[~2024-04-02 23:37] MED LIST changes: +KEP500T PO; -LEVE500T40 PO; -METH4PAK PO; +NICO14DI9 TD; -OXCA300T50 PO; -[UNRECOGNIZED DRUG - CODE] PO
[2024-04-03] VITALS (7 sets, daily range): BP systolic 111–124; BP diastolic 62–76; PULSE 88–98; RESP 14–18; TEMP 36.9; O2SAT 95–100
--- NOTE | 2024-04-03 00:19 | ED.PDOC ---
GI ASSESSMENT HPI Comments Initial Vital Signs: Temp: 99.0F HR: 119 RR: 18 BP: 124/79 SpO2: 99% PMHx: Seizures, Liver Disease, HTN PSHx: None Allergies: No Known Allergies HPI: Poor Historian. 43-year-old male presents to the emergency department for evaluation of abdominal distention x1 day. Patient was recently admitted and discharged from the hospital for what sounds like esophageal banding from esophageal rupture. Denies any actual history of liver cirrhosis. He says that this abdominal distention happened in the past and they had to do a paracentesis on him. Patient is on Lasix spironolactone and Protonix. Patient denies any nausea or vomiting diarrhea or fever. Past Medcial History: Past Surgical History: REVIEW OF SYSTEMS: CONSTITUTIONAL: Denies acute: fever, diaphoresis, chills, generalized weakness. HEAD: Denies acute: headache, photophobia Eyes: Denies acute: Double vision, vision loss, eye pain, eye discharge. EARS: Denies acute: tinnitus, hearing loss, ear discharge, ear pain, THROAT: Denies acute: sore throat, swelling, difficulty swallowing , pain with swallowing, change in voice. NECK: Denies acute: neck pain, neck swelling, stiff neck. HEART: Denies acute : chest pain, palpitations, LUNGS: Denies acute: SOB, wheezing, cough, hemoptysis ABDOMEN: Denies acute: Nausea, Vomiting, diarrhea, melena , hematemesis, hematochezia SKIN: Denies acute: rash, redness, lesions, itchiness. EXTREMITIES: Denies acute: calf pain, numbness, tingling, weakness, denies pain in extremity. Denies acute: Low back pain. Neuro: Denies acute: focal neurological deficit, motor or sensory focal neurological deficit, tremors, seizure like activity, confusion, dizziness, change in mental status, loss of bowel or bladder function, cauda equina like symptoms. : Denies acute: dysuria, hematuria, flank pain, increase in urinary frequency. PSYCH: Denies acute: hallucination, suicidal ideation, homicidal ideation. PHYSICAL EXAM: General: no acute distress, awake and alert. Head: normocephalic, atraumatic. Neck: supple, trachea is midline, no swelling. Throat: Normal phonation. Eyes:, no erythema, no purulent discharge, no proptosis, no icterus. Heart: regular tachycardic, no significant murmur appreciated. Lungs: no apparent respiratory distress, Able to speak in full sentences. No wheezing, no rhonchi, no crackles. No stridors Clear to auscultation bilaterally. Abdomen: non tender to palpation, noted abdomen is distended, soft, no guarding, no rebound, + bowel sounds. Neuro: Awake, Alert, oriented to name, self, situation, follows commands GCS=15. Speech is normal. Skin: no petechia, no purpura, no cyanosis, non-pale, not jaundice. Lower extremities: --2/4 bilateral - Pitting edema no deformity, no focal swelling, no calf TTP. Makes eye contact. moves all four extremities. Face: no apparent facial droop. Ambulating in the ED independently. Discharge Summary from 04/01/2024: Hematemesis possible variceal bleed in the setting of liver cirrhosis s/p banding Alcoholic cirrhosis of liver, history of paracentesis in November 11, 2023 Transaminitis Hypertension Hypotension post EGD, resolved Leukocytosis, rule out SBP Severe blood loss anemia Transaminitis likely due to alcoholic cirrhosis of liver Hyponatremia likely dilutional, asymptomatic Chief Complaint: Abdominal Pain Time Seen by MD: 23:58 Primary Care Provider: Ben Mccall Notes: Nurses Notes, Medications, Allergies Allergies: Coded Allergies: NO KNOWN ALLERGIES (Unverified , 01/02/10) Home Meds Active Scripts Nicotine (Nicotine) 14 Mg/24 Hr Dis, 1 PATCH TD DAILY for 30 Days, #30 DIS Prov:VERONIQUE NUR RESIDENT 04/01/24 Levetiracetam (KEPPRA TABLET) 500 Mg Tb, 500 MG PO BID for 30 Days, #60 TAB Prov:VERONIQUE NUR RESIDENT 04/01/24 Pantoprazole Sodium Sesquihydr (Protonix) 40 Mg Tab, 40 MG PO DAILY for 30 Days, #30 TAB 2 Refills Prov:GÓMEZ MURRAY MD 11/01/23 Lactulose (Lactulose) 10 Gm/15 Ml Ashly, 10 GM PO BID for 30 Days, #120 ML 3 Refills Prov:GÓMEZ MURRAY MD 11/01/23 Furosemide (Lasix) 20 Mg Tb, 1 TAB PO QAM for 30 Days, #30 TAB 3 Refills Prov:GÓMEZ MURRAY MD 11/01/23 Spironolactone (Aldactone) 50 Mg Tab, 50 MG PO BID for 30 Days, #60 TAB 3 Ref ills Prov:GÓMEZ MURRAY MD 11/01/23 Lisinopril (Lisinopril) 20 Mg Tab, 20 MG PO DAILY, #30 TAB Prov:MARCY DOBBINS MD 03/25/22 Nicotine (Nicoderm 21MG/24HR) 1 Patch Ph, 1 PATCH TOP DAILY, #28 PATCH 1 Refill Prov:JOAQUIN RICE MD 08/04/21 Information Source: Patient Mode of Arrival: Ambulatory Past Medical History PAST MEDICAL HISTORY: HTN, Liver, Seizures Surgical History: Denies all surgeries Family History Family History: Reviewed,noncontributory to illness, Family hx of HTN Social History Smoker: Cigarettes, Less Than 1 Pack/Day Alcohol: Sober Drugs: Denies Drug Use Lives In: Home Was a procedure done? Was a procedure done?: No X-Ray, Labs, Meds, VS Vital Signs Date Time Temp Pulse Resp B/P (MAP) Pulse Ox O2 Delivery O2 Flow Rate FiO2 04/03/24 00:31 116 04/02/24 23:59 99.0 119 18 124/79 (94) 99 Lab Test 04/03/24 02:29 04/03/24 00:28 Range/Units Lactic Acid Level 1.3 2.7 *H 0.4-2.0 mmol/L White Blood Count 12.3 #H 4.4-10.8 10^3/uL Red Blood Count 2.69 L 4.5-5.90 10^6/uL Hemoglobin 8.5 L 13.5-17.5 g/dL Hematocrit 25.8 L 41.0-53.0 % Mean Corpuscular Volume 95.9 80.0-100.0 fL Mean Corpuscular Hemoglobin 31.5 28.0-32.0 pg Mean Corpuscular Hemoglobin Concent 32.8 32.0-36.0 g/dL Red Cell Distribution Width 16.9 H 11.8-14.3 % Platelet Count 245 # 140-450 10^3/uL Mean Platelet Volume 7.1 6.9-10.8 fL Neutrophils (%) (Auto) 60.2 37.0-80.0 % Lymphocytes (%) (Auto) 19.5 10.0-50.0 % Monocytes (%) (Auto) 16.6 H 0.0-12.0 % Eosinophils (%) (Auto) 2.6 0.0-7.0 % Basophils (%) (Auto) 1.1 0.0-2.0 % Neutrophils # (Auto) 7.4 1.6-8.6 10 ^3/uL Lymphocytes # (Auto) 2.4 0.4-5.4 10 ^3/uL Monocytes # (Auto) 2.0 H 0-1.3 10 ^3/uL Eosinophils # (Auto) 0.3 0-0.8 10 ^3/uL Basophils # (Auto) 0.1 0-0.2 10 ^3/uL Nucleated Red Blood Cells 0.0 % Prothrombin Time 14.1 H 9.3-11.8 sec Prothrombin Time INR 1.36 H 0.9-1.15 Activated Partial Thromboplast Time 28.4 24.5-34.5 SEC Sodium Level 134 L 136-145 mmol/L Potassium Level 4.1 3.5-5.1 mmol/L Chloride Level 100 98-107 mmol/L Carbon Dioxide Level 26 20-31 mmol/L Anion Gap 8 5-15 Blood Urea Nitrogen 12 9-23 mg/dL Creatinine 0.81 0.700-1.30 mg/dL Glomerular Filtration Rate Calc 112 >90 mL/min BUN/Creatinine Ratio 14.8 10.0-20.0 Serum Glucose 106 74-106 mg/dL Calcium Level 8.6 L 8.7-10.4 mg/dL Magnesium Level 1.7 1.6-2.6 mg/dL Total Bilirubin 3.8 H 0.2-1.0 mg/dL Aspartate Amino Transferase (AST) 53 H 13-40 U/L Alanine Aminotransferase (ALT) 42 H 7-40 U/L Alkaline Phosphatase 188 H 46-116 U/L B-Type Natriuretic Peptide 48.72 0-100 pg/mL Total Protein 6.3 5.7-8.2 g/dL Albumin 3.1 L 3.2-4.8 g/dL Lipase 53 12-53 U/L [address] [address] Ph: [phone] DIAGNOSTIC IMAGING Diagnostic Imaging Report : [id number] Signed PATIENT: JOHANA MEJIA AACCT: [id number] UNIT: [id number] : 1980 LOC: ER ROOM / BED: / AGE / SEX: 43 / M ADM STATUS: REG ER SERVICE 2358 ORDERING PHYSICIAN: SHELBI LINTON DO PROCEDURE(s): ABPL - CT AB PEL WO CON-NO ORAL OR IV REASON: abd pain, distention ORDER NUMBER(s): [id number], ACCESSION NUMBER(s): [id number] Exam: CT CT AB PEL WO CON-NO ORAL OR IV History: abd pain, distention Comparison Study: None available at time of dictation. Technique: Multidetector spiral CT of the abdomen was performed from lung bases to pubic symphysis. Imaging was performed without IV contrast. Axial, coronal and sagittal multiplanar reformats were obtained from the axial data set by the technologist. Radiation Dose : 1. Abdomen/Pelvis: CTDIvol 10 mGy, DLP 623 mGy*cm. Findings: Evaluation of solid organs is limited due to lack of intravenous contrast use. Lung Bases: No acute or significant lung base finding. Normal heart size. No pleural or pericardial effusion. Liver: Atrophic liver with nodular contour. Gallbladder and Biliary Tree: Unremarkable Spleen: Mild splenomegaly. Pancreas: The pancreas is grossly normal in appearance. Adrenal Glands: Unremarkable Kidneys: Kidneys are grossly normal without calculi or hydronephrosis. Bladder: Grossly unremarkable for degree of distention. Bowel: The stomach is grossly normal in appearance. Mild diffuse colonic wall thickening versus nondistention predominantly involving the ascending colon.. Normal appendix is visualized in the right lower quadrant without findings of appendicitis. Ascites: Moderate diffuse ascites. Lymphadenopathy: No mesenteric, retroperitoneal or periportal lymphadenopathy. Abdominal Wall and Mesentery: Unremarkable. Vasculature: The visualized abdominal aorta is normal in size and caliber. Evaluation of abdominal and pelvic vessels is limited due to lack of intravenous contrast. Pelvic Organs: Unremarkable Musculoskeletal: No aggressive focal bony lesions, acute fractures or dislocation. Bilateral gynecomastia. IMPRESSION: Shrunken cirrhotic liver with splenomegaly. Moderate diffuse ascites. Mild diffuse colonic wall thickening versus nondistention involving predominantly the ascending colon. This may also be due to the volume overload state. END IMPRESSION: ATED BY: DONALDO MANNING DO DICTATED DATE/TIME: 04/03/24158 SIGNED BY: DONALDO MANNING DO SIGNED DATE/TIME: 04/03/24158 Reevaluation 1ST: Unchanged Patient Education/Counseling: Diagnosis, Treatment Family Education/Counseling: No Family Present Departure 1 Departure Time of Disposition: 02:06 Impression: Primary Impression: Abdominal ascites Additional Impressions: Abdominal distention Liver cirrhosis Disposition: ADMITTED INPATIENT Admit to: Tele Condition: Guarded Discharged With: Self Critical Care Note Critical Care Time?: No I personally scribed for SHELBI LINTON DO ([email or web address]) on 04/03/24 at 00:19. Electronically submitted by Yong Marcano ([email or web address]). I personally scribed for SHELBI LINTON DO ([email or web address]) on 04/03/24 at 01:02. Electronically submitted by Yong Marcano ([email or web address]). I personally scribed for SHELBI LINTON DO ([email or web address]) on 04/03/24 at 03:16. Electronically submitted by Yong Marcano ([email or web address]). SHELBI LINTON DO Apr 03, 2024 00:19
[2024-04-03] MEDS ORDERED: FUROSEMIDE 40 MG/4 ML VIAL IV ONE (00:30)
[2024-04-03 00:49] LABS: Basophils # (auto) 0.1 10 ^3/uL (0-0.2); Basophils % (auto) 1.1 % (0.0-2.0); Eosinophils # (auto) 0.3 10 ^3/uL (0-0.8); Eosinophils % (auto) 2.6 % (0.0-7.0); Hematocrit 25.8 % (41.0-53.0); Hemoglobin 8.5 g/dL (13.5-17.5); Lymphocytes # (auto) 2.4 10 ^3/uL (0.4-5.4); Lymphocytes % (auto) 19.5 % (10.0-50.0); Mean Corpuscular Hemoglobin 31.5 pg (28.0-32.0); Mean Corpuscular Hgb Conc. 32.8 g/dL (32.0-36.0); Mean Corpuscular Volume 95.9 fL (80.0-100.0); Monocytes % (auto) 16.6 % (0.0-12.0); Neutrophils # (auto) 7.4 10 ^3/uL (1.6-8.6); Neutrophils % (auto) 60.2 % (37.0-80.0); Platelet Count (auto) 245 10^3/uL (140-450); Red Blood Cells 2.69 10^6/uL (4.5-5.90); Red Cell Distribution Width 16.9 % (11.8-14.3); White Blood Cell 12.3 10^3/uL (4.4-10.8)
[2024-04-03 01:03] LABS: INR 1.36 (0.9-1.15); Partial Thromboplastin Time 28.4 SEC (24.5-34.5); Prothrombin Time 14.1 sec (9.3-11.8)
[2024-04-03 01:10] LABS: Chloride 100 mmol/L (98-107); Potassium 4.1 mmol/L (3.5-5.1)
[2024-04-03 01:13] LABS: Anion Gap 8 (5-15); Carbon Dioxide 26 mmol/L (20-31)
[2024-04-03 01:18] LABS: Glucose 106 mg/dL (74-106)
[2024-04-03 01:19] LABS: BUN/Creatinine Ratio 14.8 (10.0-20.0); Blood Urea Nitrogen 12 mg/dL (9-23); Lipase 53 U/L (12-53); Magnesium 1.7 mg/dL (1.6-2.6)
[2024-04-03 01:21] LABS: Total Protein 6.3 g/dL (5.7-8.2)
[2024-04-03 01:26] LABS: Alanine Aminotransferase 42 U/L (7-40); Albumin 3.1 g/dL (3.2-4.8); Alkaline Phosphatase 188 U/L (46-116); Aspartate Aminotransferase 53 U/L (13-40); Bilirubin, Total 3.8 mg/dL (0.2-1.0); Calcium 8.6 mg/dL (8.7-10.4); Sodium 134 mmol/L (136-145)
[2024-04-03 01:43] LABS: Lactic Acid w/Reflex 2.7 mmol/L (0.4-2.0)
[2024-04-03] MEDS ORDERED: cefTRIAXone 1GM/50ML D5W 50 ML IV ONE (02:00)
--- NOTE | 2024-04-03 02:01 | DVH ---
Exam: CT CT AB PEL WO CON-NO ORAL OR IV History: abd pain, distention Comparison Study: None available at time of dictation. Technique: Multidetector spiral CT of the abdomen was performed from lung bases to pubic symphysis. Imaging was performed without IV contrast. Axial, coronal and sagittal multiplanar reformats were ob tained from the axial data set by the technologist. Radiation Dose : 1. Abdomen/Pelvis: CTDIvol 10 mGy, DLP 623 mGy*cm. Findings: Evaluation of solid organs is limited due to lack of intravenous contrast use. Lung Bases: No acute or significant lung base finding. Normal heart size. No pleural or pericardial effusion. Liver: Atrophic liver with nodular contour. Gallbladder and Biliary Tree: Unremarkable Spleen: Mild splenomegaly. Pancreas: The pancreas is grossly normal in appearance. Adrenal Glands: Unremarkable Kidneys: Kidneys are grossly normal without calculi or hydronephrosis. Bladder: Grossly unremarkable for degree of distention. Bowel: The stomach is grossly normal in appearance. Mild diffuse colonic wall thickening versus nondi stention predominantly involving the ascending colon.. Normal appendix is visualized in the right lo wer quadrant without findings of appendicitis. Ascites: Moderate diffuse ascites. Lymphadenopathy: No mesenteric, retroperitoneal or periportal lymphadenopathy. Abdominal Wall and Mesentery: Unremarkable. Vasculature: The visualized abdominal aorta is normal in size and caliber. Evaluation of abdominal a nd pelvic vessels is limited due to lack of intravenous contrast. Pelvic Organs: Unremarkable Musculoskeletal: No aggressive focal bony lesions, acute fractures or dislocation. Bilateral gynecoma stia. IMPRESSION: Shrunken cirrhotic liver with splenomegaly. Moderate diffuse ascites. Mild diffuse colonic wall thick ening versus nondistention involving predominantly the ascending colon. This may also be due to the v olume overload state. END IMPRESSION:
[2024-04-03] MEDS ORDERED: PANTOPRAZOLE 40 MG/10 ML VIAL INJ IV ONE (03:00)
[2024-04-03] MEDS ORDERED: NITROGLYCERIN 0.4 MG SL TAB SL PRN (03:00)
[2024-04-03] MEDS ORDERED: LACTULOSE 20Gm/30ML SOLN PO ONE (03:00)
[2024-04-03] MEDS ORDERED: MORPHINE SULFATE INJ 2 MG/ml SYRG IV PRN ×2 (03:00)
[2024-04-03] MEDS ORDERED: MAGNESIUM SULFATE 1GM/100ML 100 ML IV ONE (03:00)
--- NOTE | 2024-04-03 03:40 | DVHHPRES ---
History of Present Illness Resident Creating Document: JIM NOE RESIDENT History of Present Illness Patient is 43 years old male with past medical history of alcoholic cirrhosis of liver, history of paracentesis, hypertension, H/O severe blood loss anemia, transaminitis, status post banding due to esophageal varices due to cirrhosis of liver, seizure disorder came with a complaint abdominal distention. As per patient he started having abdominal distention 1 day before at night. Patient reported that he was feeling discomfort in his abdomen, pressure-like, not feeling comfortable on lying position noted his abdomen was getting distended. Patient denied any nausea or vomiting or hematemesis or melena or diarrhea or chest pain or shortness of breath or fever. Patient was recently discharged from [facility] on 04/01/2024 with a diagnosis of hematemesis likely due to esophageal varices due to cirrhosis of liver, status post endoscopy with status post banding. Initial lab workup revealed leukocytosis with WBC 12.3, moderately severe anemia with a hemoglobin 8.5, platelet 245, sodium 134, potassium 4.1, lactic acidosis with lactic acid 2.7, transaminitis with total bilirubin 3.8, AST 53, ALT 42, alkaline phosphatase 188, albumin 3.1, lipase 53. CT abdomen revealed-Shrunken cirrhotic liver with splenomegaly. Moderate diffuse ascites. Mild diffuse colonic wall thickening versus nondistention involving predominantly the ascending colon. This may also be due to the volume overload state. Endoscopy on 03/29/2024-Esophagus: Large esophageal varices distal in the distal esophagus three columns two large ones and one small stigmata of recent hemorrhage no gross bleeding seen at this time. Six bands were put in the varices with good hemostasis and no bleeding at this time Patient was seen by hospitalist in November 11, 2023 and was diagnosed with new onset cirrhosis of liver due to alcoholism, patient also had paracentesis due to ascites. Home medications- Lasix, spironolactone, Protonix. Past Medical History alcoholic cirrhosis of liver, history of paracentesis, hypertension, severe blood loss anemia, transaminitis, status post banding due to esophageal varices due to cirrhosis of liver, seizure disorder Past Surgical History Left knee surgery Family History Noncontributory Past Social History Patient lives at home with son, smoker, alcoholic, denies using drugs Review of Systems Review of Systems Allergy- NKDA Patient was seen today at the bedside. Cardiovascular- deny acute chest pain or shortness of breath or cough or palpitation Respiratory- denies cough or short of breath or wheezing Musculoskeletal-denies acute joint swelling or tenderness or redness Neurological- denies acute dysarthria, dysphagia, change in vision Psychiatry- denies depression or SI or HI Skin- denies acute rash or purpura Allergies: Coded Allergies: NO KNOWN ALLERGIES (Unverified , 01/02/10) Medications Current Medications Medications Dose Ordered Sig/Leonardo Route Start Time Stop Time Status Last Admin Dose Admin Sodium Chloride 10 ml Q8HR IV 04/03/24 06:00 Morphine Sulfate 2 mg Q4HPRN PRN IV 04/03/24 03:00 Nitroglycerin 0.4 mg Q5MINP PRN SL 04/03/24 03:00 Morphine Sulfate 2 mg Q30M PRN IV 04/03/24 03:00 Pantoprazole Sodium 40 mg DAILY IV 04/03/24 10:00 Lactulose 30 ml BID PO 04/03/24 10:00 Exam Vital Signs Vital Signs Date Time Temp Pulse Resp B/P (MAP) Pulse Ox O2 Delivery O2 Flow Rate FiO2 04/03/24 00:31 116 04/02/24 23:59 99.0 18 124/79 (94) 99 Exam General examination- awake, alert, oriented, conversant HEENT- PEERLA, icteric+ Cardiovascular- S1-S2 audible, rate and rhythm regular, no murmur Respiratory- CTAB, no wheeze or rhonchi Gastrointestinal-nontender, bowel sound+. Abdomen distended+ with the ascites++ Musculoskeletal-no acute joint swelling or tenderness or redness# Lower extremity- no leg edema Neurological- cranial nerves intact, no acute dysarthria or dysphagia Psychiatry- denies depression or SI or HI Skin- no acute rash or purpura Labs/Xrays Labs Test 04/03/24 02:29 04/03/24 00:28 Range/Units Lactic Acid Level 1.3 0.4-2.0 mmol/L White Blood Count 12.3 #H 4.4-10.8 10^3/uL Red Blood Count 2.69 L 4.5-5.90 10^6/uL Hemoglobin 8.5 L 13.5-17.5 g/dL Hematocrit 25.8 L 41.0-53.0 % Mean Corpuscular Volume 95.9 80.0-100.0 fL Mean Corpuscular Hemoglobin 31.5 28.0-32.0 pg Mean Corpuscular Hemoglobin Concent 32.8 32.0-36.0 g/dL Red Cell Distribution Width 16.9 H 11.8-14.3 % Platelet Count 245 # 140-450 10^3/uL Mean Platelet Volume 7.1 6.9-10.8 fL Neutrophils (%) (Auto) 60.2 37.0-80.0 % Lymphocytes (%) (Auto) 19.5 10.0-50.0 % Monocytes (%) (Auto) 16.6 H 0.0-12.0 % Eosinophils (%) (Auto) 2.6 0.0-7.0 % Basophils (%) (Auto) 1.1 0.0-2.0 % Neutrophils # (Auto) 7.4 1.6-8.6 10 ^3/uL Lymphocytes # (Auto) 2.4 0.4-5.4 10 ^3/uL Monocytes # (Auto) 2.0 H 0-1.3 10 ^3/uL Eosinophils # (Auto) 0.3 0-0.8 10 ^3/uL Basophils # (Auto) 0.1 0-0.2 10 ^3/uL Nucleated Red Blood Cells 0.0 % Prothrombin Time 14.1 H 9.3-11.8 sec Prothrombin Time INR 1.36 H 0.9-1.15 Activated Partial Thromboplast Time 28.4 24.5-34.5 SEC Sodium Level 134 L 136-145 mmol/L Potassium Level 4.1 3.5-5.1 mmol/L Chloride Level 100 98-107 mmol/L Carbon Dioxide Level 26 20-31 mmol/L Anion Gap 8 5-15 Blood Urea Nitrogen 12 9-23 mg/dL Creatinine 0.81 0.700-1.30 mg/dL Glomerular Filtration Rate Calc 112 >90 mL/min BUN/Creatinine Ratio 14.8 10.0-20.0 Serum Glucose 106 74-106 mg/dL Calcium Level 8.6 L 8.7-10.4 mg/dL Magnesium Level 1.7 1.6-2.6 mg/dL Total Bilirubin 3.8 H 0.2-1.0 mg/dL Aspartate Amino Transferase (AST) 53 H 13-40 U/L Alanine Aminotransferase (ALT) 42 H 7-40 U/L Alkaline Phosphatase 188 H 46-116 U/L B-Type Natriuretic Peptide 48.72 0-100 pg/mL Total Protein 6.3 5.7-8.2 g/dL Albumin 3.1 L 3.2-4.8 g/dL Lipase 53 12-53 U/L Assessment/Plan Assessment/Plan Assessment/Plan # abdominal distention likely due to ascites with spontaneous bacterial peritonitis likely due to alcoholic cirrhosis of liver --continue pantoprazole 40 mg IV b.i.d. -order GI consult for further evaluation and care -continue lactulose 30 mg b.i.d. # suspected spontaneous bacterial peritonitis due to cirrhosis of liver -continue ceftriaxone 2 g IV daily -ordered gastroenterology consult for further evaluation and care -continue lactulose 30 mg p.o. b.i.d. -avoid dehydration and hepatotoxic drugs # ascites likely due to cirrhosis of liver -continue current management -lactulose 30 mg p.o. b.i.d. -ordered gastroenterology consult for further evaluation and care # anemia likely due to chronic blood loss -monitor CBC # lactic acidosis -continue current management # leukocytosis -monitor CBC # esophageal viruses, history of hematemesis - Endoscopy on 03/29/2024-Esophagus: Large esophageal varices distal in the distal esophagus three columns two large ones and one small stigmata of recent hemorrhage no gross bleeding seen at this time. Six bands were put in the varices with good hemostasis and no bleeding at this time # alcoholic cirrhosis of liver, history of paracentesis in November 11, 2023 -continue lactulose 30 mL bid -continue spironolactone 50 mg b.i.d. -continue Lasix 20 mg q.d. # transaminitis likely due to alcoholic cirrhosis of liver -monitor CMP # hypertension -continue hydralazine 10 mg q.6h p.r.n. -continue lisinopril 20 mg p.o. daily # seizure disorder -continue Ativan p.r.n. -continue levetiracetam 500 mg p.o. b.i.d. # history of alcoholism -patient was counseled about the effect of alcoholism on health # history of smoking -patient was counseled about the effect of smoking on health Goals of care/advance care planning; FULL CODE; discussed with the patient >15 minutes PUD prophylaxis: Pantoprazole DVT prophylaxis: Plan discussed with Dr. Iniguez, nursing staff, patient Total time spent on patient evaluation, chart review, assessment and plan, discussion discussion >30 minutes Plan discussed with: Patient Plan discussed with: Patient, Other (RN) Plan discussed with: Patient, Other (RN) My Orders Orders - JIM NOE Procedure Category Date Status Time Admit ADMIT 04/03/24 Transmitted 02:48 Code Status CODE 04/03/24 Transmitted 02:48 Sodium Chloride Lock PHA 04/03/24 In Process (Saline Lock Ns) 06:00 Complete Blood Count LAB 04/04/24 Verified 04:00 Comprehensive LAB 04/04/24 Verified Metabolic Panel 04:00 Npo (Nothing By DIET 04/03/24 Transmitted Mouth) Diet Breakfast Morphine Sulfate PHA 04/03/24 In Process Injection 03:00 Nitroglycerin PHA 04/03/24 In Process Sublingual (Ntrostat 03:00 Morphine Sulfate PHA 04/03/24 In Process Injection 03:00 Oxygen By Nasal RT 04/03/24 Transmitted Cannula 02:48 Stat Ekg For Chest SYLVIA 04/03/24 In Process Pain 02:48 Notify Md Of Changes SYLVIA 04/03/24 In Process From Base 02:48 Tank Wagon Operator For SYLVIA 04/03/24 In Process 24 Hours 02:48 Emergency Dysrhythmia SYLVIA 04/03/24 In Process Protocol 02:48 Rhythm Strips Once [facility] 04/03/24 In Process Every Shift 02:48 Pantoprazole PHA 04/03/24 In Process (Protonix) 10:00 Lactulose Oral PHA 04/03/24 In Process 10:00 Magnesium Sulfate PHA 04/03/24 In Process 1gm/100ml 03:00 Complete Blood Count LAB 04/03/24 Logged 06:00 Comprehensive LAB 04/03/24 Logged Metabolic Panel 06:00 Prothrombin Time W/ LAB 04/03/24 Logged INR 06:00 Magnesium LAB 04/03/24 Logged 06:00 Lactic Acid W/ Reflex LAB 04/03/24 Logged Order 06:00 Date of Service: Apr 03, 2024 Billing Provider: RUPERT INIGUEZ MD Common Visit Codes: [id number] INP/OBS CARE (HIGH) JIM NOE Apr 03, 2024 03:40 RUPERT INIGUEZ MD Apr 04, 2024 08:19
[2024-04-03] MEDS ORDERED: hydrALAZINE HCL 20 MG/ML VL IV PRN (03:45)
[2024-04-03] MEDS ORDERED: LORazepam 2MG/ML-1ML VIAL IV PRN (03:45)
[2024-04-03 06:18] LABS: Basophils # (auto) 0.2 10 ^3/uL (0-0.2); Basophils % (auto) 1.5 % (0.0-2.0); Eosinophils # (auto) 0.2 10 ^3/uL (0-0.8); Eosinophils % (auto) 2.2 % (0.0-7.0); Hematocrit 23.8 % (41.0-53.0); Hemoglobin 8.1 g/dL (13.5-17.5); Lymphocytes # (auto) 2.2 10 ^3/uL (0.4-5.4); Mean Corpuscular Hemoglobin 32.2 pg (28.0-32.0); Mean Corpuscular Volume 94.7 fL (80.0-100.0); Monocytes # (auto) 1.9 10 ^3/uL (0-1.3); Monocytes % (auto) 17.1 % (0.0-12.0); Neutrophils # (auto) 6.6 10 ^3/uL (1.6-8.6); Neutrophils % (auto) 59.2 % (37.0-80.0); Platelet Count (auto) 218 10^3/uL (140-450); Red Blood Cells 2.51 10^6/uL (4.5-5.90); Red Cell Distribution Width 16.7 % (11.8-14.3); White Blood Cell 11.2 10^3/uL (4.4-10.8)
[2024-04-03 06:30] LABS: INR 1.41 (0.9-1.15); Prothrombin Time 14.6 sec (9.3-11.8)
[2024-04-03 06:41] LABS: Alanine Aminotransferase 39 U/L (7-40); Anion Gap 4 (5-15); BUN/Creatinine Ratio 15.3 (10.0-20.0); Blood Urea Nitrogen 13 mg/dL (9-23); Carbon Dioxide 26 mmol/L (20-31); Chloride 99 mmol/L (98-107); Magnesium 1.7 mg/dL (1.6-2.6); Potassium 4.3 mmol/L (3.5-5.1); Total Protein 5.9 g/dL (5.7-8.2)
[2024-04-03 06:42] LABS: Albumin 2.8 g/dL (3.2-4.8); Alkaline Phosphatase 166 U/L (46-116); Aspartate Aminotransferase 52 U/L (13-40); Bilirubin, Total 4.5 mg/dL (0.2-1.0); Calcium 8.5 mg/dL (8.7-10.4); Glucose 136 mg/dL (74-106); Sodium 129 mmol/L (136-145)
[2024-04-03] MEDS: SODIUM CHLOR 0.9% PF (SALINE LOCK) 10ML VIAL/SYR IV SCH (07:06)
[2024-04-03] MEDS: FUROSEMIDE 20 MG TAB PO SCH (07:06)
[2024-04-03] MEDS: metroNIDAZOLE 500MG/100ML 100 ML IV SCH (07:08)
[2024-04-03] MEDS ORDERED: PANTOPRAZOLE 40 MG/10 ML VIAL INJ IV SCH (10:00)
[2024-04-03] MEDS: NICOTINE 14 MG/24HR TOPICAL PATCH TD SCH (10:00)
[2024-04-03] MEDS: cefTRIAXone 2GM/50ML D5W 50 ML IV SCH (10:15)
[2024-04-03] MEDS: LACTULOSE 20Gm/30ML SOLN PO SCH (10:15)
[2024-04-03] MEDS: levETIRAcetam 500 MG TAB PO SCH (10:16)
[2024-04-03] MEDS: PANTOPRAZOLE 40 MG/10 ML VIAL INJ IV SCH (10:16)
[2024-04-03] MEDS: SPIRONOLACTONE 25 MG TAB PO SCH (10:16)
[2024-04-03] MEDS: LISINOPRIL 20 MG TAB PO SCH (10:17)
--- NOTE | 2024-04-03 11:58 | DVHINCON2 ---
GI Consult Consult Note GI consult note Date of Consultation: 04/03/2024 Chief Complaint: Cirrhosis of liver, ascites Referring Physician: Dr. Beck H&P: 43-year-old male admitted with abdominal distention for one day Patient recently discharged from hospital, SP EGD with esophageal banding. SP paracentesis October2023 with 5.6 L removed No abdominal pain. No nausea or vomit. No melena or red blood in stool Patient had history of heavy alcohol use, quit alcohol in October2023 Patient has outpatient follow-up appointment with Dr. Stewart Past Medical History: Seizures, Liver Disease, HTN, anemia Past Surgical History: Left knee surgery Social History: NO smoking, quit drinking ETOH 2 Family History: Noncontributory Review of Systems: Constitutional: no fever, chill, weight loss Heart: no chest pain, no chest pressure Lung: no cough, no dyspnea with exertion Abdomen: see HPI Physical exam: General: NAD, AAOX3 Chest: lung frye clear to auscultation Heart: RRR, no murmur Abdomen: Nkkw-yi-unteiygr-distended, no tenderness to palpation, +BS Extremities: no edema Labs: Labs Test 04/03/24 05:57 04/03/24 00:28 Range/Units White Blood Count 11.2 H 4.4-10.8 10^3/uL Red Blood Count 2.51 L 4.5-5.90 10^6/uL Hemoglobin 8.1 L 13.5-17.5 g/dL Hematocrit 23.8 L 41.0-53.0 % Mean Corpuscular Volume 94.7 80.0-100.0 fL Mean Corpuscular Hemoglobin 32.2 H 28.0-32.0 pg Mean Corpuscular Hemoglobin Concent 34.0 32.0-36.0 g/dL Red Cell Distribution Width 16.7 H 11.8-14.3 % Platelet Count 218 140-450 10^3/uL Mean Platelet Volume 7.1 6.9-10.8 fL Neutrophils (%) (Auto) 59.2 37.0-80.0 % Lymphocytes (%) (Auto) 20.0 10.0-50.0 % Monocytes (%) (Auto) 17.1 H 0.0-12.0 % Eosinophils (%) (Auto) 2.2 0.0-7.0 % Basophils (%) (Auto) 1.5 0.0-2.0 % Neutrophils # (Auto) 6.6 1.6-8.6 10 ^3/uL Lymphocytes # (Auto) 2.2 0.4-5.4 10 ^3/uL Monocytes # (Auto) 1.9 H 0-1.3 10 ^3/uL Eosinophils # (Auto) 0.2 0-0.8 10 ^3/uL Basophils # (Auto) 0.2 0-0.2 10 ^3/uL Nucleated Red Blood Cells 0.0 % Prothrombin Time 14.6 H 9.3-11.8 sec Prothrombin Time INR 1.41 H 0.9-1.15 Sodium Level 129 #L 136-145 mmol/L Potassium Level 4.3 3.5-5.1 mmol/L Chloride Level 99 98-107 mmol/L Carbon Dioxide Level 26 20-31 mmol/L Anion Gap 4 L 5-15 Blood Urea Nitrogen 13 9-23 mg/dL Creatinine 0.85 0.700-1.30 mg/dL Glomerular Filtration Rate Calc 110 >90 mL/min BUN/Creatinine Ratio 15.3 10.0-20.0 Serum Glucose 136 H 74-106 mg/dL Lactic Acid Level 1.5 0.4-2.0 mmol/L Calcium Level 8.5 L 8.7-10.4 mg/dL Magnesium Level 1.7 1.6-2.6 mg/dL Total Bilirubin 4.5 H 0.2-1.0 mg/dL Aspartate Amino Transferase (AST) 52 H 13-40 U/L Alanine Aminotransferase (ALT) 39 7-40 U/L Alkaline Phosphatase 166 H 46-116 U/L Ammonia 14 11-32 umol/L Total Protein 5.9 5.7-8.2 g/dL Albumin 2.8 L 3.2-4.8 g/dL Activated Partial Thromboplast Time 28.4 24.5-34.5 SEC B-Type Natriuretic Peptide 48.72 0-100 pg/mL Lipase 53 12-53 U/L Plasma/Serum Blood Alcohol < 3.0 <10 mg/dL Imaging: CT abdomen pelvis IMPRESSION: Shrunken cirrhotic liver with splenomegaly. Moderate diffuse ascites. Mild diffuse colonic wall thickening versus nondistention involving predominantly the ascending colon. This may also be due to the volume overload state. Assessment: Liver cirrhosis Ascites History heavy alcohol use Anemia Esophageal varices Plan: Discussed with Dr. Stewart Radiology consult for possible paracentesis Continue current medications Monitor lab Thank you for this consult Date of Service: Apr 03, 2024 Billing Provider: BEATRIZ VOGT Common Visit Codes: CONSULT ONLY Consultation Codes: 70182-[id number] CONSULT <45MIN BEATRIZ VOGT Apr 03, 2024 11:58
--- NOTE | 2024-04-03 13:10 | DVH ---
ULTRASOUND ABDOMEN limited, 4 QUADRANTS INDICATION: FLUID CHECK FOR ASCITES Evaluate for ascites. TECHNIQUE: The four quadrants of the abdomen were scanned in fine-scale to assess for the presence of ascites. N o solid organ assessment was performed. FINDINGS/IMPRESSIONS: Moderate volume ascites in all 4 abdominal quadrants. HS:Y
--- NOTE | 2024-04-03 17:05 | DVHDSRES ---
Discharge Summary Date of Admission Resident Creating Document: JIM NOE RESIDENT Apr 03, 2024 at 02:49 Date of Discharge: Apr 03, 2024 Admitting Diagnosis Abdominal Pain and distention Labs/Diagnostic Data: Laboratory Results Test 04/03/24 05:57 04/03/24 00:28 White Blood Count 11.2 10^3/uL (4.4-10.8) Red Blood Count 2.51 10^6/uL (4.5-5.90) Hemoglobin 8.1 g/dL (13.5-17.5) Hematocrit 23.8 % (41.0-53.0) Mean Corpuscular Volume 94.7 fL (80.0-100.0) Mean Corpuscular Hemoglobin 32.2 pg (28.0-32.0) Mean Corpuscular Hemoglobin Concent 34.0 g/dL (32.0-36.0) Red Cell Distribution Width 16.7 % (11.8-14.3) Platelet Count 218 10^3/uL (140-450) Mean Platelet Volume 7.1 fL (6.9-10.8) Neutrophils (%) (Auto) 59.2 % (37.0-80.0) Lymphocytes (%) (Auto) 20.0 % (10.0-50.0) Monocytes (%) (Auto) 17.1 % (0.0-12.0) Eosinophils (%) (Auto) 2.2 % (0.0-7.0) Basophils (%) (Auto) 1.5 % (0.0-2.0) Neutrophils # (Auto) 6.6 10 ^3/uL (1.6-8.6) Lymphocytes # (Auto) 2.2 10 ^3/uL (0.4-5.4) Monocytes # (Auto) 1.9 10 ^3/uL (0-1.3) Eosinophils # (Auto) 0.2 10 ^3/uL (0-0.8) Basophils # (Auto) 0.2 10 ^3/uL (0-0.2) Nucleated Red Blood Cells 0.0 % Prothrombin Time 14.6 sec (9.3-11.8) Prothrombin Time INR 1.41 (0.9-1.15) Sodium Level 129 mmol/L (136-145) Potassium Level 4.3 mmol/L (3.5-5.1) Chloride Level 99 mmol/L (98-107) Carbon Dioxide Level 26 mmol/L (20-31) Anion Gap 4 (5-15) Blood Urea Nitrogen 13 mg/dL (9-23) Creatinine 0.85 mg/dL (0.700-1.30) Glomerular Filtration Rate Calc 110 mL/min (>90) BUN/Creatinine Ratio 15.3 (10.0-20.0) Serum Glucose 136 mg/dL (74-106) Lactic Acid Level 1.5 mmol/L (0.4-2.0) Calcium Level 8.5 mg/dL (8.7-10.4) Magnesium Level 1.7 mg/dL (1.6-2.6) Total Bilirubin 4.5 mg/dL (0.2-1.0) Aspartate Amino Transferase (AST) 52 U/L (13-40) Alanine Aminotransferase (ALT) 39 U/L (7-40) Alkaline Phosphatase 166 U/L (46-116) Ammonia 14 umol/L (11-32) Total Protein 5.9 g/dL (5.7-8.2) Albumin 2.8 g/dL (3.2-4.8) Activated Partial Thromboplast Time 28.4 SEC (24.5-34.5) B-Type Natriuretic Peptide 48.72 pg/mL (0-100) Lipase 53 U/L (12-53) Plasma/Serum Blood Alcohol < 3.0 mg/dL (<10) Other Laboratory Tests 04/03/24 05:57 Brief Hx & Hospital Course: This is a 43 years old male with past medical history of 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 He was recently seen here last week and managed for variceal bleeding with banding. He was discharge on on 04/01/2024 just for him to retrn on 04/03/2024 for abdominal distension with discomfort. Patient denied any nausea or vomiting or hematemesis or melena or diarrhea or chest pain or shortness of breath or fever. Patient was recently discharged from [facility] on 04/01/2024 with a diagnosis of hematemesis likely due to esophageal varices due to cirrhosis of liver, status post endoscopy with status post banding. Initial lab workup revealed leukocytosis with WBC 12.3, moderately severe anemia with a hemoglobin 8.5, platelet 245, sodium 134, potassium 4.1, lactic acidosis with lactic acid 2.7, transaminitis with total bilirubin 3.8, AST 53, ALT 42, alkaline phosphatase 188, albumin 3.1, lipase 53. CT abdomen revealed-Shrunken cirrhotic liver with splenomegaly. Moderate diffuse ascites. Mild diffuse colonic wall thickening versus non-distention involving predominantly the ascending colon. This may also be due to the volume overload state. Home medications- Lasix, Spironolactone, Protonix. Constitutional: Denies fever no chills no feeling of malaise HEENT: Denies headache, ear pain, ear discharges, conjunctivitis, nasal discharge throat pain Cardiovascular: Denies chest pain, palpitation, orthopnea, PND, or pedal edema Respiratory: Denies shortness of breath, cough cough, sputum production, hemoptysis, GI: Abdominal discomfort, distension, cirrhosis: Denies nausea, vomiting, diarrhea, hematemesis, hematochezia, : Denies frequency, urgency, hematuria, Endocrine: Denies unintentional weight gain or weight loss, feeling of hot flashes, Daniel: Denies easy bruising, bleeding disorders, epistaxis Musculoskeletal: Denies joint pains, muscle aches Psych: No evidence of depression, marcello, suicidal ideation Assessment and plan Moderate ascites --> s/p paracentesis supervised by Dr. Stephenson; 3.6 L drain --> sample taken for cytology and culture --> follow up at the discharge clinic in a week liver cirrhosis --> Lasix, Spironolactone, Discharge planning 1. Continue home medications: Lasix and spironolactone 2. Abstain from alcohol consumption 3. follow up in a week at the discharge clinic 4. Follow up with the GI physician for further liver 5. Return to the ED as soon as possible if anything changes Case and plan discussed with Dr. Stephenson. Operations or Procedures ULTRASOUND ABDOMEN limited, 4 QUADRANTS INDICATION: FLUID CHECK FOR ASCITES Evaluate for ascites. TECHNIQUE: The four quadrants of the abdomen were scanned in fien-scale to assess for the presence of ascites. No solid organ assessment was performed. FINDINGS/IMPRESSIONS: Moderate volume ascites in all 4 abdominal quadrants. HS:Y ATED BY: LESLYE TURNER DO DICTATED DATE/TIME: 04/03/24 1307 PATIENT: JOHANA MEJIA AACCT: [id number] UNIT: [id number] : 1980 LOC: ER ROOM / BED: / AGE / SEX: 43 / M ADM STATUS: REG ER SERVICE 0628 ORDERING PHYSICIAN: SHELBI LINTON DO PROCEDURE(s): ABPL - CT AB PEL WO CON-NO ORAL OR IV REASON: abd pain, distention ORDER NUMBER(s): [id number], ACCESSION NUMBER(s): [id number] Exam: CT CT AB PEL WO CON-NO ORAL OR IV History: abd pain, distention Comparison Study: None available at time of dictation. Technique: Multidetector spiral CT of the abdomen was performed from lung bases to pubic symphysis. Imaging was performed without IV contrast. Axial, coronal and sagittal multiplanar reformats were obtained from the axial data set by the technologist. Radiation Dose : 1. Abdomen/Pelvis: CTDIvol 10 mGy, DLP 623 mGy*cm. Findings: Evaluation of solid organs is limited due to lack of intravenous contrast use. Lung Bases: No acute or significant lung base finding. Normal heart size. No pleural or pericardial effusion. Liver: Atrophic liver with nodular contour. Gallbladder and Biliary Tree: Unremarkable Spleen: Mild splenomegaly. Pancreas: The pancreas is grossly normal in appearance. Adrenal Glands: Unremarkable Kidneys: Kidneys are grossly normal without calculi or hydronephrosis. Bladder: Grossly unremarkable for degree of distention. Bowel: The stomach is grossly normal in appearance. Mild diffuse colonic wall thickening versus nondistention predominantly involving the ascending colon.. Normal appendix is visualized in the right lower quadrant without findings of appendicitis. Ascites: Moderate diffuse ascites. Lymphadenopathy: No mesenteric, retroperitoneal or periportal lymphadenopathy. Abdominal Wall and Mesentery: Unremarkable. Vasculature: The visualized abdominal aorta is normal in size and caliber. Evaluation of abdominal and pelvic vessels is limited due to lack of intravenous contrast. Pelvic Organs: Unremarkable Musculoskeletal: No aggressive focal bony lesions, acute fractures or dislocation. Bilateral gynecomastia. IMPRESSION: Shrunken cirrhotic liver with splenomegaly. Moderate diffuse ascites. Mild diffuse colonic wall thickening versus nondistention involving predominantly the ascending colon. This may also be due to the volume overload state. END IMPRESSION: ATED BY: DONALDO MANNING DO DICTATED DATE/TIME: 04/03/24 0159 Condition at Discharge: Good Final Diagnosis/Problems List Distention secondary to ascites Alcohol-induced liver cirrhosis Hypoalbumin splenomegaly Discharge Disposition: Home Discharge Statement: "Patient was advised to return to the ER or call 911 if any headaches, dizziness, shortness of breath, chest pain, abdominal pain, bleeding, fevers, or worsening of medical condition. Patient was counseled about treatment plan, medications, possible side effects, patientverbalized understanding. All questions were answered to the best of my ability. This discharge took greater then 30 minutes in planning, reviewing documentation, counseling the patient, and discussing with other team members." ASSESSMENT ASSESSMENT Assessment VERONIQUE NUR RESIDENT Apr 03, 2024 17:05
[2024-04-03 22:03] LABS: Body Fluid Red Blood Cells 20 CUMM (0-2000); Body Fluid White Blood Cells 194 CUMM (0-200)
[2024-04-03 22:15] LABS: Body Fluid Polymorphonuclear 13 % (0-25)
--- NOTE | 2024-04-04 07:06 | DVHNC2 ---
Other Procedure Procedure Paracentesis A time-out was performed. My hands were washed immediately prior to the procedure. I wore a surgical cap, mask with protective eyewear, sterile gown and sterile gloves throughout the procedure. The area was cleansed and draped in usual sterile fashion using chlorhexidine scrub. Anesthesia was achieved with 1% lidocaine. The lower right quadrant of the abdomen was prepped and draped in a sterile fashion using chlorhexidine scrub. 1% lidocaine was used to numb the skin, soft tissue and peritoneum. The paracentesis catheter was inserted and advanced with negative pressure until yellow colored fluid was aspirated. Approximately 15 mL of ascitic fluid was collected and sent for laboratory analysis. The catheter was then connected to the vaccutainer and 3.5 liters of additional ascitic fluid were drained. The catheter was removed and no leaking was noted. A bandaid was placed over the puncture wound. The patient tolerated the procedure well without any immediate complications. Estimated blood loss was 3ml. Indication Abdominal pain and distension due to ascites from liver cirrhosis Anesthetic Lidocaine 1% Prep Chlorhexidine and iodine Success Yes Informed consent obtained: Yes Risks, benefits, and alternati: Yes Notes Supervised by Dr. Stephenson Date of Service: Apr 03, 2024 Billing Provider: OPAL RIBEIRO MD Common Visit Codes: PROCEDURE ONLY Procedure Codes: [id number] W/IMAGING HENRY LITTLE Apr 04, 2024 07:06 OPAL RIBEIRO MD Apr 04, 2024 09:14
== END 2024-04-03 19:50 | disposition home or self-care (01) | DRG 432 ==
LOC: ER 23:37 → TELE 04-03 02:49 → TELE-EAST 04-03 06:12
PROVIDERS: ADMIT Student in an Organized Health Care Education/Training Program; ATTEND Emergency Medicine
PROC: 0W9G3ZZ Drainage of Peritoneal Cavity, Percutaneous Approach (ICD-10-PCS; principal; 2024-04-03)
DX: K70.31 Alcoholic cirrhosis of liver with ascites (principal); K65.2 Spontaneous bacterial peritonitis; E87.20 Acidosis, unspecified; I85.10 Secondary esophageal varices without bleeding; D64.9 Anemia, unspecified; F17.210 Nicotine dependence, cigarettes, uncomplicated; D72.829 Elevated white blood cell count, unspecified; G40.909 Epilepsy, unspecified, not intractable, without status epilepticus; R74.01 Elevation of levels of liver transaminase levels; I10 Essential (primary) hypertension; R16.1 Splenomegaly, not elsewhere classified
CPT/HCPCS: 36415; 76705; 80053; 80320; 82140; 83605; 83690; 83735; 83880; 83986; 85025; 85610; 85730; 87205; 89051; G0378; J2470; J3490

== ENCOUNTER 2024-04-09 04:31 | Inpatient (IN) | payer OTHER, MEDICAID ==
[~2024-04-09] VITALS: Ht 177.8 cm; Wt 89.6 kg
--- NOTE | 2024-04-09 06:49 | ED.PDOC ---
GI ASSESSMENT HPI Comments 43 Y M, with PMHX of HTN and liver cirrhosis, presents to the ED with CC of ABD pain. Patient was last seen at [facility] on 04/03/24 for DX of ABD pain with suspected sbp. Patient states that he has been experiencing ABD pain since, receiving an amniocentesis to drain the ABD fluid from his stomach last Monday (04/02/24). Patient denies any cough, chills, or N/V/D. Chief Complaint: Abdominal Pain Time Seen by MD: 06:20 Primary Care Provider: Ben Allergies: Coded Allergies: NO KNOWN ALLERGIES (Unverified , 01/02/10) Home Meds Active Scripts Nicotine (Nicotine) 14 Mg/24 Hr Dis, 1 PATCH TD DAILY for 30 Days, #30 DIS Prov:VERONIQUE NUR 04/01/24 Levetiracetam (KEPPRA TABLET) 500 Mg Tb, 500 MG PO BID for 30 Days, #60 TAB Prov:VERONIQUE NUR 04/01/24 Pantoprazole Sodium Sesquihydr (Protonix) 40 Mg Tab, 40 MG PO DAILY for 30 Days, #30 TAB 2 Refills Prov:GÓMEZ MURRAY MD 11/01/23 Lactulose (Lactulose) 10 Gm/15 Ml Ashly, 10 GM PO BID for 30 Days, #120 ML 3 Refills Prov:GÓMEZ MURRAY MD 11/01/23 Furosemide (Lasix) 20 Mg Tb, 1 TAB PO QAM for 30 Days, #30 TAB 3 Refills Prov:GÓMEZ MURRAY MD 11/01/23 Spironolactone (Aldactone) 50 Mg Tab, 50 MG PO BID for 30 Days, #60 TAB 3 Refills Prov:GÓMEZ MURRAY MD 11/01/23 Lisinopril (Lisinopril) 20 Mg Tab, 20 MG PO DAILY, #30 TAB Prov:MARCY DOBBINS MD 03/25/22 Nicotine (Nicoderm 21MG/24HR) 1 Patch Ph, 1 PATCH TOP DAILY, #28 PATCH 1 Refill Prov:JOAQUIN RICE MD 08/04/21 Information Source: Patient Mode of Arrival: Ambulatory Timing: Days Duration: Since onset Quality: Other (prssure) Vomitus: None Severity: Moderate Recent: None Recent Hx of: None Pain Location: None Modifying Factors: Nothing Associated sign and symptoms: None Past Medical History PAST MEDICAL HISTORY: HTN, Liver (cirrhosis), Seizures Surgical History: Denies all surgeries Family History Family History: Reviewed,noncontributory to illness, Family hx of HTN Social History Smoker: Cigarettes, Less Than 1 Pack/Day Alcohol: Sober Drugs: Denies Drug Use Lives In: Home Constitutional: denies: chills, diaphoresis, fatigue, fever, malaise, sweats, weakness, others EENTM: denies: blurred vision, double vision, ear bleeding, ear discharge, ear drainage, ear pain, ear ringing, eye pain, eye redness, hearing loss, mouth pain, mouth swelling, nasal discharge, nose bleeding, nose congestion, nose pain, photophobia, tearing, throat pain, throat swelling, voice changes, others Respiratory: denies: cough, hemoptysis, orthopnea, SOB at rest, shortness of breath, SOB with excertion, stridor, wheezing, others Cardiovascular: denies: chest pain, dizzy spells, diaphoresis, Dyspnea on exertion, edema, irregular heart beat, left arm pain, lightheadedness, palpitations, PND, syncope, others Gastrointestinal: reports: abdomen distended, abdominal pain, others (abd pressure); denies: blood streaked bowels, constipated, diarrhea, dysphagia, difficulty swallowing, hematemesis, melena, nausea, poor appetite, poor fluid intake, rectal bleeding, rectal pain, vomiting Genitourinary: denies: burning, dysuria, flank pain, frequency, hematuria, incontinence, penile discharge, penile sore, pain, testicle pain, testicle swelling, urgency, others Neurological: denies: dizziness, fainting, headache, left sided numbness, left sided weakness, numbness, paresthesia, pre-existing deficit, right sided numbness, right sided weakness, seizure, speech problems, tingling, tremors, weakness, others Musculoskeletal: denies: back pain, gout, joint pain, joint swelling, muscle pain, muscle stiffness, neck pain, others Integumetry: denies: bruises, change in color, change in hair/nails, dryness, laceration, lesions, lumps, rash, wounds, others Allergic/Immunocompromised: denies: Difficulty Healing, Frequent Infections, Hives, Itching, others Hematologic/Lymphatic: denies: anemia, blood clots, easy bleeding, easy bruising, swollen glands, others Endocrine: denies: excessive hunger, excessive sweating, excessive thirst, excessive urination, flushing, intolerance to cold, intolerance to heat, unexplained weight gain, unexplained weight loss, others Psychiatric: denies: anxiety, bipolar disorder, depression, hopeless, panic disorder, schizophrenia, sleepless, suicidal, others All Other Systems: Reviewed and Negative Physical Exam General Appearance: No Apparent Distress, Normal HEENT: Normal ENT Inspection, Pharynx Normal, TMs Normal Neck: Full Range of Motion, Non-Tender, Normal, Normal Inspection Respiratory: Chest Non-Tender, Lungs Clear, No Accessory Muscle Use, No Respiratory Distress, Normal Breath Sounds Cardiovascular: No Edema, No JVD, No Murmur, No Gallop, Normal Peripheral Pulses, Regular Rate/Rhythm Breast Exam: Deferred Gastrointestinal: No Organomegaly, Non Tender, No Pulsatile Mass, Normal Bowel Sounds, Soft Genitalia: Deferred Pelvic: Deferred Rectal: Deferred Extremities: No calf tenderness, Normal capillary refill, Normal inspection, Normal range of motion, Non-tender, No pedal edema Musculoskeletal : Apperance: Normal Neurologic: Alert, door installer II-XII nml as Tested, No Motor Deficits, Normal Affect, Normal Mood, No Sensory Deficits Cerebellar Function: Normal Reflexes: Normal Skin: Dry, Normal Color, Warm Lymphatic: No Adenopathy Was a procedure done? Was a procedure done?: No GI differential Dx Differential Diagnosis: Appendicitis, Cholangitis, Cholecystitis, Gastritis/PUD, Gastroenteritis, Food Poisoning, Bacterial, Viral X-Ray, Labs, Meds, VS Vital Signs Date Time Temp Pulse Resp B/P (MAP) Pulse Ox O2 Delivery O2 Flow Rate FiO2 04/09/24 07:20 107 17 100 Room Air* 0 21 04/09/24 07:20 99.3 107 17 114/74 (87) 100 99.3 04/09/24 04:56 99.4 116 16 133/88 (103) 98 Lab Test 04/09/24 06:50 Range/Units White Blood Count 9.5 4.4-10.8 10^3/uL Red Blood Count 2.82 L 4.5-5.90 10^6/uL Hemoglobin 8.4 L 13.5-17.5 g/dL Hematocrit 25.6 L 41.0-53.0 % Mean Corpuscular Volume 90.7 # 80.0-100.0 fL Mean Corpuscular Hemoglobin 29.9 28.0-32.0 pg Mean Corpuscular Hemoglobin Concent 33.0 32.0-36.0 g/dL Red Cell Distribution Width 18.2 H 11.8-14.3 % Platelet Count 282 140-450 10^3/uL Mean Platelet Volume 7.1 6.9-10.8 fL Neutrophils (%) (Auto) 65.2 37.0-80.0 % Lymphocytes (%) (Auto) 17.8 10.0-50.0 % Monocytes (%) (Auto) 13.4 H 0.0-12.0 % Eosinophils (%) (Auto) 2.4 0.0-7.0 % Basophils (%) (Auto) 1.2 0.0-2.0 % Neutrophils # (Auto) 6.2 1.6-8.6 10 ^3/uL Lymphocytes # (Auto) 1.7 0.4-5.4 10 ^3/uL Monocytes # (Auto) 1.3 0-1.3 10 ^3/uL Eosinophils # (Auto) 0.2 0-0.8 10 ^3/uL Basophils # (Auto) 0.1 0-0.2 10 ^3/uL Nucleated Red Blood Cells 0.0 % Prothrombin Time 13.6 H 9.3-11.8 sec Prothrombin Time INR 1.31 H 0.9-1.15 Sodium Level 133 L 136-145 mmol/L Potassium Level 4.8 3.5-5.1 mmol/L Chloride Level 102 98-107 mmol/L Carbon Dioxide Level 25 20-31 mmol/L Anion Gap 6 5-15 Blood Urea Nitrogen 10 9-23 mg/dL Creatinine 1.05 0.700-1.30 mg/dL Glomerular Filtration Rate Calc 90 >90 mL/min BUN/Creatinine Ratio 9.5 L 10.0-20.0 Serum Glucose 115 H 74-106 mg/dL Calcium Level 8.9 8.7-10.4 mg/dL Total Bilirubin 2.8 H 0.2-1.0 mg/dL Aspartate Amino Transferase (AST) 36 13-40 U/L Alanine Aminotransferase (ALT) 34 7-40 U/L Alkaline Phosphatase 175 H 46-116 U/L Total Protein 6.3 5.7-8.2 g/dL Albumin 3.0 L 3.2-4.8 g/dL Time of 1ST Reevaluation: 06:50 Reevaluation 1ST: Unchanged Patient Education/Counseling: Diagnosis, Treatment Family Education/Counseling: No Family Present Departure 1 Departure Time of Disposition: 08:34 (Patient with worsening abdominal pain and large distended abdomen. Patient likely needs a large volume paracentesis. Admit patient for further workup.) Impression: Primary Impression: Intractable abdominal pain Additional Impressions: Distended abdomen Cirrhosis of liver Qualified Codes: K70.31 - Alcoholic cirrhosis of liver with ascites Disposition: ADMITTED INPATIENT Admit to: Med Surg Condition: Serious Critical Care Note Critical Care Time?: No Stability Stability form required: No Heart Score Heart Score: Heart Score Response (Comments) Value History N/A 0 EKG N/A 0 Age N/A 0 Risk Factors N/A 0 Troponin N/A 0 Total 0 I personally scribed for KALEB HUMPHRIES MD ([email or web address]) on 04/09/24 at 06:49. Electronically submitted by Lorna Mendieta ([email or web address]). KALEB HUMPHRIES MD Apr 09, 2024 06:49
[2024-04-09 07:20] VITALS: PULSE 107; RESP 17; O2SAT 100
[2024-04-09 07:25] LABS: Basophils # (auto) 0.1 10 ^3/uL (0-0.2); Eosinophils # (auto) 0.2 10 ^3/uL (0-0.8); Hemoglobin 8.4 g/dL (13.5-17.5); Lymphocytes # (auto) 1.7 10 ^3/uL (0.4-5.4); Platelet Count (auto) 282 10^3/uL (140-450)
[2024-04-09 07:28] LABS: Basophils % (auto) 1.2 % (0.0-2.0); Eosinophils % (auto) 2.4 % (0.0-7.0); Hematocrit 25.6 % (41.0-53.0); Lymphocytes % (auto) 17.8 % (10.0-50.0); Mean Corpuscular Hemoglobin 29.9 pg (28.0-32.0); Mean Corpuscular Volume 90.7 fL (80.0-100.0); Monocytes # (auto) 1.3 10 ^3/uL (0-1.3); Monocytes % (auto) 13.4 % (0.0-12.0); Neutrophils # (auto) 6.2 10 ^3/uL (1.6-8.6); Neutrophils % (auto) 65.2 % (37.0-80.0); Red Blood Cells 2.82 10^6/uL (4.5-5.90); Red Cell Distribution Width 18.2 % (11.8-14.3); White Blood Cell 9.5 10^3/uL (4.4-10.8)
[2024-04-09 07:41] LABS: INR 1.31 (0.9-1.15); Prothrombin Time 13.6 sec (9.3-11.8)
[2024-04-09 07:43] LABS: Alanine Aminotransferase 34 U/L (7-40)
[2024-04-09 07:44] LABS: Anion Gap 6 (5-15); Aspartate Aminotransferase 36 U/L (13-40); BUN/Creatinine Ratio 9.5 (10.0-20.0); Blood Urea Nitrogen 10 mg/dL (9-23); Calcium 8.9 mg/dL (8.7-10.4); Carbon Dioxide 25 mmol/L (20-31); Chloride 102 mmol/L (98-107); Potassium 4.8 mmol/L (3.5-5.1); Total Protein 6.3 g/dL (5.7-8.2)
[2024-04-09 07:45] LABS: Alkaline Phosphatase 175 U/L (46-116); Bilirubin, Total 2.8 mg/dL (0.2-1.0); Glucose 115 mg/dL (74-106); Sodium 133 mmol/L (136-145)
[2024-04-09] MEDS ORDERED: ACETAMINOPHEN 325 MG TAB PO PRN ×2 (09:15→23:15)
[2024-04-09] MEDS ORDERED: ONDANSETRON HCL 4 MG/2 ML VIAL IV PRN ×2 (09:15→23:15)
[2024-04-09] MEDS ORDERED: DOCUSATE SOD 100 MG CAP PO PRN ×2 (09:15→23:15)
[2024-04-09] MEDS ORDERED: HYDROcodone-ACET 5/325MG TAB PO PRN ×2 (09:15→23:15)
--- NOTE | 2024-04-09 09:15 | DVHHP2 ---
History of Present Illness Reason for Visit: Abdominal Pain History of Present Illness Santo Last is a 43-year-old male with past medical history of seizures, esophageal varices, and liver cirrhosis, who comes in with complaints of abdominal pain. Patient states he had a paracentesis completed here 04/03/2024 with 3.5 L taken off, but he states it was not enough fluid, and that his abdomen remained distended. Patient states he had a prior paracentesis in October with about 6 L taken off and he was doing much better after that procedure. Patient states it is difficult to breath or eat when sitting due to abdominal distention and pain. 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 Hepatobiliary: Cirrhosis, Other (esophageal varices) Past Surgical History: Other (Left knee) Family History: None Smoke: Quit (3 weeks ago) ALCOHOL: none (quite September 2023) Drugs: None Lives: with Family Domestic Violence: Neg Review of Systems Constitutional: No: Fever, Chills, Sweats, Weakness, Malaise, Other Eyes: No: Pain, Vision change, Conjunctivae inflammation, Eyelid inflammation, Other, Redness ENT: No: Ear pain, Ear discharge, Nose pain, Nose discharge, Nose congestion, Mouth pain, Mouth swelling, Throat pain, Throat swelling, Other Respiratory: Shortness of breath; No: Cough, Dry, SOB with excertion, Wheezing, Hemoptysis, Pleuritic Pain, Sputum, Wheezing, Other Cardiovascular: No: Chest Pain, Palpitations, Orthopnea, Paroxysmal Noc. D yspnea, Edema, Lt Headedness, Other Gastrointestinal: Abdominal Pain; No: Nausea, Vomiting, Diarrhea, Constipation, Melena, Hematochezia, Other Genitourinary: No Dysuria, No Frequency, No Incontinence, No Hematuria, No Retention, No Other Musculoskeletal: No: other, neck pain, shoulder pain, arm pain, back pain, hand pain, leg pain, foot pain Skin: No: Rash, Lesions, Jaundice, Bruising, Other Neurological: No: Weakness, Numbness, Incoordination, Change in speech, Confusion, Seizures, Other Allergies: Coded Allergies: NO KNOWN ALLERGIES (Unverified , 01/02/10) Exam Vital Signs Vital Signs Date Time Temp Pulse Resp B/P (MAP) Pulse Ox O2 Delivery O2 Flow Rate FiO2 04/09/24 07:20 107 17 100 Room Air* 0 21 04/09/24 07:20 99.3 114/74 (87) 99.3 General Appearance: Alert, Oriented X3, moderate distress HEENT: Atraumatic, PERRLA, Mucous membr. moist/pink Respiratory: Clear to auscultation, Normal air movement Cardiovascular: Regular rate, Normal S1, Normal S2, No murmurs Abdominal: Normal bowel sounds, Other (firm, distended) Extremities: No clubbing, No cyanosis, No edema, Normal pulses Skin: No rashes, No breakdown, No significant lesion Neuro: Normal gait, Normal speech, Strength at 5/5 X4 ext, Normal tone Psych/Mental Status: Mental status NL, Mood NL Labs/Xrays Labs Test 04/09/24 06:50 Range/Units White Blood Count 9.5 4.4-10.8 10^3/uL Red Blood Count 2.82 L 4.5-5.90 10^6/uL Hemoglobin 8.4 L 13.5-17.5 g/dL Hematocrit 25.6 L 41.0-53.0 % Mean Corpuscular Volume 90.7 # 80.0-100.0 fL Mean Corpuscular Hemoglobin 29.9 28.0-32.0 pg Mean Corpuscular Hemoglobin Concent 33.0 32.0-36.0 g/dL Red Cell Distribution Width 18.2 H 11.8-14.3 % Platelet Count 282 140-450 10^3/uL Mean Platelet Volume 7.1 6.9-10.8 fL Neutrophils (%) (Auto) 65.2 37.0-80.0 % Lymphocytes (%) (Auto) 17.8 10.0-50.0 % Monocytes (%) (Auto) 13.4 H 0.0-12.0 % Eosinophils (%) (Auto) 2.4 0.0-7.0 % Basophils (%) (Auto) 1.2 0.0-2.0 % Neutrophils # (Auto) 6.2 1.6-8.6 10 ^3/uL Lymphocytes # (Auto) 1.7 0.4-5.4 10 ^3/uL Monocytes # (Auto) 1.3 0-1.3 10 ^3/uL Eosinophils # (Auto) 0.2 0-0.8 10 ^3/uL Basophils # (Auto) 0.1 0-0.2 10 ^3/uL Nucleated Red Blood Cells 0.0 % Prothrombin Time 13.6 H 9.3-11.8 sec Prothrombin Time INR 1.31 H 0.9-1.15 Sodium Level 133 L 136-145 mmol/L Potassium Level 4.8 3.5-5.1 mmol/L Chloride Level 102 98-107 mmol/L Carbon Dioxide Level 25 20-31 mmol/L Anion Gap 6 5-15 Blood Urea Nitrogen 10 9-23 mg/dL Creatinine 1.05 0.700-1.30 mg/dL Glomerular Filtration Rate Calc 90 >90 mL/min BUN/Creatinine Ratio 9.5 L 10.0-20.0 Serum Glucose 115 H 74-106 mg/dL Calcium Level 8.9 8.7-10.4 mg/dL Total Bilirubin 2.8 H 0.2-1.0 mg/dL Aspartate Amino Transferase (AST) 36 13-40 U/L Alanine Aminotransferase (ALT) 34 7-40 U/L Alkaline Phosphatase 175 H 46-116 U/L Total Protein 6.3 5.7-8.2 g/dL Albumin 3.0 L 3.2-4.8 g/dL Assessment/Plan Assessment/Plan Assessment: Abdominal ascites, Cirrhosis of liver, Transaminitis, Jaundice, Coagulopathy, Seizures, Plan: Admit to Tele, GI consult, IR consult for paracentesis, Regular diet, Seizure precautions, Home medications reconciled, Ammonia level in am, Plan discussed with: Patient My Orders Orders - RADHA LINDO Procedure Category Date Status Time Admit ADMIT 04/09/24 Verified 09:08 Code Status CODE 04/09/24 Verified 09:08 Sodium Chloride Lock PHA 04/09/24 Verified (Saline Lock Ns) 14:00 Hydrocodone-Acet PHA 04/09/24 Verified 5/325mg Tab ([place] 09:15 Ondansetron Hcl PHA 04/09/24 Verified (Zofran) 09:15 Docusate Sodium PHA 04/09/24 Verified Capsule (Colace 09:15 Complete Blood Count LAB 04/10/24 Verified 04:00 Comprehensive LAB 04/10/24 Verified Metabolic Panel 04:00 Condition: Serious SYLVIA 04/09/24 Verified 09:08 Acetaminophen Tablet PHA 04/09/24 Verified (Tylenol Tablet) 09:15 Ammonia LAB 04/10/24 Verified 04:00 * Gi Dvh Sales Incentive Analyst CONS 04/09/24 Verified 09:08 * Radiologist Consult CONS 04/09/24 Verified 09:08 Furosemide Tablet PHA 04/10/24 Verified (Lasix Tablet) 07:00 Levetiracetam Tablet PHA 04/09/24 Verified (Keppra Tablet) 10:00 Date of Service: Apr 09, 2024 Billing Provider: RADHA LINDO Common Visit Codes: [id number] INP/OBS CARE (MOD) RADHA LINDO Apr 09, 2024 09:15
[2024-04-09] MEDS ORDERED: GABA-1250 PO (09:19)
--- NOTE | 2024-04-09 10:17 | DVH ---
CHEST RADIOGRAPH Indication: SOB Technique: Single frontal view of the chest was obtained Comparison: XY CHEST XRAY 1 VIEW on DOS: 10/31/23, CHEST PORTABLE on DOS: 08/04/21 FINDINGS: Lines and Tubes: None Lungs: No focal consolidation. Pleura: No effusion.No pneumothorax. Cardiomediastinal contours: Unremarkable Pulmonary vasculature: Within normal limits. Bones: No acute osseous abnormality. IMPRESSION: 1. No acute cardiopulmonary disease. HS:Y
[2024-04-09 12:56] VITALS: BP 137/80; PULSE 100; RESP 18; TEMP 98.8; O2SAT 100
--- NOTE | 2024-04-09 13:10 | DVHINCON2 ---
GI Consult Consult Note GI consult note Date of Consultation: 04/09/2024 Chief Complaint: Abdominal ascites, cirrhosis of liver Referring Physician: Rajiv VENEGAS H&P: 43-year-old male presented with abdominal distention Patient has history of liver disease, SP EGD with banding SP paracentesis November 14 5.6 L removed, SP paracentesis 04/03/2024 with 3.5 L removed, and per patient felt like it was not enough fluid that was removed at that time and is abdominal kept being distended No nausea or vomiting. No hematemesis. No melena or red blood in stool Patient has outpatient appointment with Radiology for possible paracentesis on 04/23/2024 Past Medical History: Seizures, Liver Disease, HTN, anemia Past Surgical History: Left knee surgery Social History: NO smoking, quit drinking ETOH Family History: Noncontributory Review of Systems: Constitutional: no fever, chill, weight loss HEENT: no eye pain, no hearing loss, no oral lesion, no scleral icterus Heart: no chest pain, no chest pressure Lung: no cough, no dyspnea with exertion Abdomen: see HPI Physical exam: General: NAD, AAOX3 Chest: lung frye clear to auscultation Heart: RRR, no murmur Abdomen: Moderate-distended, mild tenderness to palpation, +BS Labs: Labs Test 04/09/24 06:50 Range/Units White Blood Count 9.5 4.4-10.8 10^3/uL Red Blood Count 2.82 L 4.5-5.90 10^6/uL Hemoglobin 8.4 L 13.5-17.5 g/dL Hematocrit 25.6 L 41.0-53.0 % Mean Corpuscular Volume 90.7 # 80.0-100.0 fL Mean Corpuscular Hemoglobin 29.9 28.0-32.0 pg Mean Corpuscular Hemoglobin Concent 33.0 32.0-36.0 g/dL Red Cell Distribution Width 18.2 H 11.8-14.3 % Platelet Count 282 140-450 10^3/uL Mean Platelet Volume 7.1 6.9-10.8 fL Neutrophils (%) (Auto) 65.2 37.0-80.0 % Lymphocytes (%) (Auto) 17.8 10.0-50.0 % Monocytes (%) (Auto) 13.4 H 0.0-12.0 % Eosinophils (%) (Auto) 2.4 0.0-7.0 % Basophils (%) (Auto) 1.2 0.0-2.0 % Neutrophils # (Auto) 6.2 1.6-8.6 10 ^3/uL Lymphocytes # (Auto) 1.7 0.4-5.4 10 ^3/uL Monocytes # (Auto) 1.3 0-1.3 10 ^3/uL Eosinophils # (Auto) 0.2 0-0.8 10 ^3/uL Basophils # (Auto) 0.1 0-0.2 10 ^3/uL Nucleated Red Blood Cells 0.0 % Prothrombin Time 13.6 H 9.3-11.8 sec Prothrombin Time INR 1.31 H 0.9-1.15 Sodium Level 133 L 136-145 mmol/L Potassium Level 4.8 3.5-5.1 mmol/L Chloride Level 102 98-107 mmol/L Carbon Dioxide Level 25 20-31 mmol/L Anion Gap 6 5-15 Blood Urea Nitrogen 10 9-23 mg/dL Creatinine 1.05 0.700-1.30 mg/dL Glomerular Filtration Rate Calc 90 >90 mL/min BUN/Creatinine Ratio 9.5 L 10.0-20.0 Serum Glucose 115 H 74-106 mg/dL Calcium Level 8.9 8.7-10.4 mg/dL Total Bilirubin 2.8 H 0.2-1.0 mg/dL Aspartate Amino Transferase (AST) 36 13-40 U/L Alanine Aminotransferase (ALT) 34 7-40 U/L Alkaline Phosphatase 175 H 46-116 U/L Total Protein 6.3 5.7-8.2 g/dL Albumin 3.0 L 3.2-4.8 g/dL Imaging: Assessment: Abdominal ascites Liver cirrhosis History of alcohol use Plan: Discussed with Dr. Stewart Radiology consult pending for possible paracentesis Continue medications Outpatient GI follow-up in four weeks Discussed plan with patient and COMPREHENSIVE ADVISOR Thank you for this consult Date of Service: Apr 09, 2024 Billing Provider: BEATRIZ VOGT Common Visit Codes: CONSULT ONLY Consultation Codes: [id number] CONSULT <45MIN BEATRIZ VOGT Apr 09, 2024 13:10
[2024-04-09 13:18] VITALS: RESP 18; O2SAT 100
[2024-04-09] MEDS: SPIRONOLACTONE 25 MG TAB PO SCH (13:18)
[2024-04-09] MEDS: levETIRAcetam 500 MG TAB PO SCH (13:18)
[2024-04-09] MEDS: NICOTINE 14 MG/24HR TOPICAL PATCH TD SCH (13:18)
[2024-04-09] MEDS: SPIRONOLACTONE 50 MG PO SCH (13:18)
[2024-04-09] MEDS: PANTOPRAZOLE 40 MG TAB PO SCH (13:19)
[2024-04-09] MEDS: SODIUM CHLOR 0.9% PF (SALINE LOCK) 10ML VIAL/SYR IV SCH (14:00)
[2024-04-09 17:00] VITALS: BP 119/67; PULSE 84; RESP 18; TEMP 98.4; O2SAT 100
[2024-04-09] MEDS: GABAPENTIN 300 MG CAP PO SCH (20:20)
[2024-04-09] MEDS: GABAPENTIN 300 MG CAP PO ONE (23:36)
[2024-04-09] MEDS: SPIRONOLACTONE 25 MG TAB PO ONE (23:36)
[2024-04-10 04:29] LABS: Alanine Aminotransferase 30 U/L (7-40); Carbon Dioxide 26 mmol/L (20-31); Chloride 103 mmol/L (98-107); Hematocrit 26.7 % (41.0-53.0); Hemoglobin 8.5 g/dL (13.5-17.5); Mean Corpuscular Hgb Conc. 31.7 g/dL (32.0-36.0); Mean Corpuscular Volume 91.5 fL (80.0-100.0); Platelet Count (auto) 243 10^3/uL (140-450); Red Blood Cells 2.92 10^6/uL (4.5-5.90); Red Cell Distribution Width 18.4 % (11.8-14.3); White Blood Cell 9.9 10^3/uL (4.4-10.8)
[2024-04-10 04:30] LABS: Albumin 2.9 g/dL (3.2-4.8); Alkaline Phosphatase 165 U/L (46-116); Anion Gap 4 (5-15); Aspartate Aminotransferase 34 U/L (13-40); BUN/Creatinine Ratio 8.9 (10.0-20.0); Bilirubin, Total 2.6 mg/dL (0.2-1.0); Blood Urea Nitrogen 9 mg/dL (9-23); Calcium 8.5 mg/dL (8.7-10.4); Glucose 123 mg/dL (74-106); Potassium 4.7 mmol/L (3.5-5.1); Sodium 133 mmol/L (136-145); Total Protein 6.1 g/dL (5.7-8.2)
[2024-04-10 04:34] LABS: Band Neutrophils % (manual) 0; Basophils % (manual) 0 (0.0-2.0); Blast Cells 0; Metamyelocytes % 0; Myelocytes % 0; Promyelocytes % 0; Reactive Lymphocytes 0
[2024-04-10 05:54] LABS: Anisocytosis Slight; Eosinophils % (manual) 5 (0-7); Large Platelets FEW; Lymphocytes % (manual) 23 (10.0-50.0); Monocytes % (manual) 7 (0-12); Platelet Estimate Adequate
[2024-04-10] MEDS: SODIUM CHLOR 0.9% PF (SALINE LOCK) 10ML VIAL/SYR IV SCH (06:13)
[2024-04-10] MEDS: FUROSEMIDE 20 MG TAB PO SCH (06:21)
[2024-04-10] MEDS ORDERED: FUROSEMIDE 20 MG TAB PO SCH (07:00)
[2024-04-10 09:22] VITALS: TEMP 98.2
[2024-04-10] MEDS ORDERED: SPIRONOLACTONE 25 MG TAB PO SCH ×2 (10:00→22:00)
[2024-04-10] MEDS: levETIRAcetam 500 MG TAB PO SCH (10:00)
[2024-04-10] MEDS: NICOTINE 14 MG/24HR TOPICAL PATCH TD SCH (10:00)
[2024-04-10] MEDS: ALBUMIN 25% 100 ML IV ONE (10:15)
[2024-04-10] MEDS: PANTOPRAZOLE 40 MG TAB PO SCH (10:27)
[2024-04-10] MEDS: GABAPENTIN 300 MG CAP PO SCH (10:27)
[2024-04-10 10:30] VITALS: BP 117/68; PULSE 92; RESP 16; O2SAT 100
--- NOTE | 2024-04-10 11:01 | DVH ---
PROCEDURE: ULTRASOUND GUIDED PARACENTESIS HISTORY: 43 Male requiring paracentesis. TECHNIQUE: The risks and benefits of the procedure including but not limited to bleeding, infection and injury t o abdominal organs were explained to the patient and written informed consent was obtained. Optimal site for puncture was determined using ultrasound and the area sterilized and draped. Using a 5 [place] [employer] catheter, paracentesis was performed in the right lower abdomen. Approximately 4.9 liters of straw colored fluid was removed. The patient tolerated the procedure well. There were no immediate complications. IMPRESSION: Ultrasound-guided paracentesis with no immediate complications.
[2024-04-10 12:08] LABS: Body Fluid Red Blood Cells 20 CUMM (0-2000); Body Fluid White Blood Cells 306 CUMM (0-200)
[2024-04-10 12:18] LABS: Body Fluid Polymorphonuclear 10 % (0-25)
[2024-04-10] MEDS ORDERED: FURO1TAB31 PO (13:53)
[2024-04-10] MEDS ORDERED: SPIR100T4 PO (13:53)
--- NOTE | 2024-04-10 21:05 | DVHDSRES ---
Discharge Summary Date of Admission Resident Creating Document: DAT LUGO RESDIENT 04/09/2024 Date of Discharge: Apr 10, 2024 Admitting Diagnosis Ascites secondary to liver cirrhosis Labs/Diagnostic Data: Laboratory Results Test 04/10/24 09:17 04/10/24 03:32 04/09/24 06:50 Body Fluid Source Peritoneal fluid Body Fluid pH 8.0 Body Fluid WBC (Manual) 306 CUMM (0-200) Body Fluid RBC (Manual) 20 CUMM (0-2000) Body Fluid Mononuclear Cells 90 % Body Fluid Polymorphonuclear Cells 10 % (0-25) White Blood Count 9.9 10^3/uL (4.4-10.8) Red Blood Count 2.92 10^6/uL (4.5-5.90) Hemoglobin 8.5 g/dL (13.5-17.5) Hematocrit 26.7 % (41.0-53.0) Mean Corpuscular Volume 91.5 fL (80.0-100.0) Mean Corpuscular Hemoglobin 29.0 pg (28.0-32.0) Mean Corpuscular Hemoglobin Concent 31.7 g/dL (32.0-36.0) Red Cell Distribution Width 18.4 % (11.8-14.3) Platelet Count 243 10^3/uL (140-450) Mean Platelet Volume 7.1 fL (6.9-10.8) Neutrophils (%) (Auto) % (37.0-80.0) Lymphocytes (%) (Auto) % (10.0-50.0) Monocytes (%) (Auto) % (0.0-12.0) Basophils (%) (Auto) % (0.0-2.0) Neutrophils # (Auto) 10 ^3/uL (1.6-8.6) Lymphocytes # (Auto) 10 ^3/uL (0.4-5.4) Monocytes # (Auto) 10 ^3/uL (0-1.3) Differential Total Cells Counted 100.0 (100) Neutrophils % (Manual) 65 (37.0-80.0) Band Neutrophils % (Manual) 0 Lymphocytes % (Manual) 23 (10.0-50.0) Monocytes % (Manual) 7 (0-12) Eosinophils % (Manual) 5 (0-7) Basophils % (Manual) 0 (0.0-2.0) Metamyelocytes % (manual) 0 Myelocytes % (Manual) 0 Promyelocytes % (Manual) 0 Blast Cells % (Manual) 0 Reactive Lymphocytes 0 Platelet Estimate Adequate Large Platelets Few Anisocytosis (manual) Slight Schistocytes Few Sodium Level 133 mmol/L (136-145) Potassium Level 4.7 mmol/L (3.5-5.1) Chloride Level 103 mmol/L (98-107) Carbon Dioxide Level 26 mmol/L (20-31) Anion Gap 4 (5-15) Blood Urea Nitrogen 9 mg/dL (9-23) Creatinine 1.01 mg/dL (0.700-1.30) Glomerular Filtration Rate Calc 94 mL/min (>90) BUN/Creatinine Ratio 8.9 (10.0-20.0) Serum Glucose 123 mg/dL (74-106) Calcium Level 8.5 mg/dL (8.7-10.4) Total Bilirubin 2.6 mg/dL (0.2-1.0) Aspartate Amino Transferase (AST) 34 U/L (13-40) Alanine Aminotransferase (ALT) 30 U/L (7-40) Alkaline Phosphatase 165 U/L (46-116) Ammonia 16 umol/L (11-32) Total Protein 6.1 g/dL (5.7-8.2) Albumin 2.9 g/dL (3.2-4.8) Eosinophils (%) (Auto) 2.4 % (0.0-7.0) Eosinophils # (Auto) 0.2 10 ^3/uL (0-0.8) Basophils # (Auto) 0.1 10 ^3/uL (0-0.2) Nucleated Red Blood Cells 0.0 % Prothrombin Time 13.6 sec (9.3-11.8) Prothrombin Time INR 1.31 (0.9-1.15) Other Laboratory Tests 04/10/24 03:32 Brief Hx & Hospital Course: Santo Last is a 43-year-old male with past medical history of seizures, esophageal varices, and liver cirrhosis, with recurrent history of paracentesis who comes in with complaints of abdominal pain. Patient states he had a paracentesis completed here 04/03/2024 with 3.5 L taken off, but he states it was not enough fluid, and that his abdomen remained distended. Patient states he had a prior paracentesis in October with about 6 L taken off and he was doing much better after that procedure. Patient states it is difficult to breath or eat when sitting due to abdominal distention and pain. On Admission, physical examination was significant for abdominal distention. Otherwise unremarkable. Lab studies were significant for mild hyponatremia, albumin at 3, total bilirubin 2.8, otherwise insignificant. Hospital course: During hospital admission the patient was given diuretic, including spironolactone 100 mg b.i.d., furosemide 40 mg daily, and continued home medication. GI was consulted, recommended paracentesis. Radiology was consulted, performed paracentesis and removed 4.9 L of ascitic fluid. Postprocedure the patient was feeling good, and the procedure was completed with the any complication. G stain of ascitic fluid was negative. After paracentesis, 100 mL of albumin given to the patient. On 04/10, the patient was feeling better, abdominal discomfort the improved and the patient clinically and hemodynamically was stable. Discharge plan discussed with the patient and the patient was discharged. Discharge plan: -follow up with the PCP within 1 week of the discharge. -Follow up with the GI on outpatient basis within 4 weeks. -increased dose of furosemide from 60 mg daily to 40 mg daily -increase dose of spironolactone from 50 mg daily to 100 mg b.i.d. -continue rest of home medicine Consults/Reason for consult GI: For abdominal ascites Radiology: for paracentesis Operations or Procedures [place] [address] Ph: [phone] DIAGNOSTIC IMAGING Diagnostic Imaging Report : [id number] Signed PATIENT: SANTO LAST AACCT: [id number] UNIT: [id number] : 1980 LOC: OVERFLOW ROOM / BED: [facility] / A AGE / SEX: 43 / M ADM STATUS: ADM IN SERVICE [id number] ORDERING PHYSICIAN: RADHA LINDO PROCEDURE(s): CXR1 - CHEST XRAY 1 VIEW REASON: SOB ORDER NUMBER(s): [id number], ACCESSION NUMBER(s): [id number] CHEST RADIOGRAPH Indication: SOB Technique: Single frontal view of the chest was obtained Comparison: XY CHEST XRAY 1 VIEW on DOS: 10/31/23, CHEST PORTABLE on DOS: 08/04/21 FINDINGS: Lines and Tubes: None Lungs: No focal consolidation. Pleura: No effusion.No pneumothorax. Cardiomediastinal contours: Unremarkable Pulmonary vasculature: Within normal limits. Bones: No acute osseous abnormality. IMPRESSION: 1. No acute cardiopulmonary disease. HS:Y ATED BY: YVES DOE MD DICTATED DATE/TIME: 04/09/24 1016 SIGNED BY: YVES DOE MD SIGNED DATE/TIME: 04/09/24 1016 CC: [place] [address] Ph: [phone] DIAGNOSTIC IMAGING Diagnostic Imaging Report : [id number] Signed PATIENT: SANTO LAST AACCT: [id number] UNIT: [id number] : 1980 LOC: OVERFLOW ROOM / BED: [address] [place] [address] AGE / SEX: 43 / M ADM STATUS: ADM IN SERVICE 7 ORDERING PHYSICIAN: RADHA LINDO PROCEDURE(s): PARAC - PARACENTESIS REASON: ASCITES ORDER NUMBER(s): [id number], ACCESSION NUMBER(s): [id number] PROCEDURE: ULTRASOUND GUIDED PARACENTESIS HISTORY: 43 Male requiring paracentesis. TECHNIQUE: The risks and benefits of the procedure including but not limited to bleeding, infection and injury to abdominal organs were explained to the patient and written informed consent was obtained. Optimal site for puncture was determined using ultrasound and the area sterilized and draped. Using a 5 [employer] catheter, paracentesis was performed in the right lower abdomen. Approximately 4.9 liters of straw colored fluid was removed. The patient tolerated the procedure well. There were no immediate complications. IMPRESSION: Ultrasound-guided paracentesis with no immediate complications. ATED BY: MICHELLE KONG MD DICTATED DATE/TIME: 04/10/24 1058 SIGNED BY: MICHELLE KONG MD SIGNED DATE/TIME: 04/10/24 1058 CC: Condition at Discharge: Good Final Diagnosis/Problems List Intractable abdominal pain and distention due to Abdominal ascites, secondary to liver cirrhosis Liver cirrhosis, likely due to alcohol Decompensated liver failure, due to alcoholic liver cirrhosis 0 transaminitis Jaundice, increased total bilirubin Acquired coagulopathy History of seizure Mild hyponatremia Moderate malnutrition Moderate Anemia, normocytic normochromic, likely due To liver failure History of alcohol use disorder Discharge Disposition: Home Discharge Instruct/Medications Diet: Cardiac 2g Na,low cholest Activity: No Restrictions, As Tolerated Follow Up/Referral: Follow up with the PCP within 1 week after discharge. Follow up with the discharge Clinic within 1 week. Follow up with the GI doctor on outpatient basis. Medications: Increased the dose of spironolactone for 50 mg b.i.d. to 100 mg b.i.d. Increased dose of Lasix for 20 mg to 60 mg daily Discharge Statement: "Patient was advised to return to the ER or call 911 if any headaches, dizziness, shortness of breath, chest pain, abdominal pain, bleeding, fevers, or worsening of medical condition. Patient was counseled about treatment plan, medications, possible side effects, patientverbalized understanding. All questions were answered to the best of my ability. This discharge took greater then 30 minutes in planning, reviewing documentation, counseling the patient, and discussing with other team members." ASSESSMENT ASSESSMENT Assessment Ascites secondary to liver cirrhosis Date of Service: Apr 10, 2024 Billing Provider: OPAL RIBEIRO MD Common Visit Codes: [id number] DISCH DAY >30min DAT LUGO RESDIENT Apr 10, 2024 21:05 OPAL RIBEIRO MD Apr 11, 2024 09:56
[2024-04-11] MEDS ORDERED: FUROSEMIDE 20 MG TAB PO SCH (07:00)
[2024-04-11 13:06] LABS: Protein, Body Fluid 0.7 g/dL (.)
== END 2024-04-11 14:11 | disposition home or self-care (01) | DRG 433 ==
LOC: ER 04:31 → UNDOADMIN 09:08 → OVERFLOW 09:08 → ER 09:11 → UNDODISIN 04-10 14:11 → OVERFLOW 04-11 09:11 → UNDOADMIN 04-11 09:11 → UNDODISIN 04-11 14:11 → OVERFLOW 04-11 14:11 → UNDOADMIN 04-11 14:11
PROVIDERS: ADMIT Nurse Practitioner Family; ATTEND Nurse Practitioner Family
PROC: 0W9G3ZZ Drainage of Peritoneal Cavity, Percutaneous Approach (ICD-10-PCS; principal; 2024-04-10)
DX: K70.31 Alcoholic cirrhosis of liver with ascites (principal); D68.9 Coagulation defect, unspecified; E44.0 Moderate protein-calorie malnutrition; E87.1 Hypo-osmolality and hyponatremia; R56.9 Unspecified convulsions; D64.9 Anemia, unspecified; Z87.891 Personal history of nicotine dependence; Z68.28 Body mass index [BMI] 28.0-28.9, adult; Z79.899 Other long term (current) drug therapy
CPT/HCPCS: 36415; 49083; 71045; 76942; 80053; 82140; 83986; 85007; 85025; 85027; 85610; 87205; 89051; G0378

== ENCOUNTER 2024-06-25 06:29 | Inpatient (IN) | payer MEDICAID ==
[2024-06-20 10:59] LABS: Urine Bacteria None Seen /hpf (None Seen)
[2024-06-20 11:16] LABS: Basophils # (auto) 0.1 10 ^3/uL (0-0.2); Eosinophils # (auto) 0.2 10 ^3/uL (0-0.8)
[2024-06-20 11:18] LABS: Basophils % (auto) 1.2 % (0.0-2.0); Eosinophils % (auto) 3.1 % (0.0-7.0); Hematocrit 34.9 % (41.0-53.0); Hemoglobin 10.6 g/dL (13.5-17.5); Lymphocytes # (auto) 2.2 10 ^3/uL (0.4-5.4); Lymphocytes % (auto) 29.1 % (10.0-50.0); Mean Corpuscular Hemoglobin 20.1 pg (28.0-32.0); Mean Corpuscular Hgb Conc. 30.3 g/dL (32.0-36.0); Mean Corpuscular Volume 66.4 fL (80.0-100.0); Monocytes # (auto) 0.6 10 ^3/uL (0-1.3); Monocytes % (auto) 8.4 % (0.0-12.0); Neutrophils # (auto) 4.4 10 ^3/uL (1.6-8.6); Neutrophils % (auto) 58.2 % (37.0-80.0); Nucleated Red Blood Cells % 0.1 %; Platelet Count (auto) 204 10^3/uL (140-450); Red Blood Cells 5.25 10^6/uL (4.5-5.90); Red Cell Distribution Width 22.1 % (11.8-14.3); White Blood Cell 7.6 10^3/uL (4.4-10.8)
[2024-06-20 11:35] LABS: INR 1.15 (0.9-1.15); Partial Thromboplastin Time 29.7 SEC (24.5-34.5); Urine Blood Negative /uL (Negative); Urine Clarity Clear (Clear); Urine Color Light-Yellow (Yellow); Urine Protein, UAD Negative (Negative); Urine Specific Gravity 1.007 (1.001-1.035); Urine Squamous Epithelial Cell None Seen /hpf (<5); Urine Urobilinogen Normal (Negative)
[2024-06-20 11:36] LABS: Urine WBC < 1 /HPF (0-3)
[2024-06-20 11:52] LABS: Alanine Aminotransferase 38 U/L (7-40); Albumin 4.4 g/dL (3.2-4.8); Anion Gap 8 (5-15); Aspartate Aminotransferase 34 U/L (13-40); Blood Urea Nitrogen 17 mg/dL (9-23); Calcium 10.1 mg/dL (8.7-10.4); Carbon Dioxide 24 mmol/L (20-31); Chloride 102 mmol/L (98-107); Potassium 4.9 mmol/L (3.5-5.1)
[2024-06-20 12:01] LABS: Alkaline Phosphatase 160 U/L (46-116); Bilirubin, Total 1.8 mg/dL (0.2-1.0); Glucose 113 mg/dL (74-106); Sodium 134 mmol/L (136-145); Total Protein 8.3 g/dL (5.7-8.2)
[~2024-06-25] VITALS: Ht 177.8 cm; Wt 89.6 kg
[~2024-06-25 06:29] MED LIST changes: +FURO1TAB31 PO; +GABA-1250 PO; -LACT10SO3 PO; -LISI20TA56 PO; -NIC21P TOP; +SPIR100T4 PO
[2024-06-25] MEDS ORDERED: ceFAZolin 2 GM/D5W100ml 100 ML IV ONE (07:36)
[2024-06-25] MEDS ORDERED: MIDAZOLAM HCL 2MG/2ML 2ml VIAL (1mg/ml) ONE (09:20)
[2024-06-25] MEDS ORDERED: fentaNYL CITRATE 100 MCG/2 ML VL ONE (09:20)
[2024-06-25] MEDS ORDERED: MEPERIDINE HCL (25 MG/ML) 1ML VIAL ONE ×2 (09:20→10:44)
[2024-06-25] MEDS ORDERED: BUPIVACAINE HCL 0 ML ONE (09:38)
[2024-06-25] MEDS ORDERED: ROPIVACAINE 0.5% (5MG/ML) 20ML AMPULE IJ ONE (09:44)
[2024-06-25] MEDS ORDERED: ePHEDrine SULFATE 50 MG/ML AMP IV PRN (10:30)
[2024-06-25] MEDS ORDERED: fentaNYL CITRATE 100 MCG/2 ML VL IV PRN (10:30)
[2024-06-25] MEDS ORDERED: ONDANSETRON HCL 4 MG/2 ML VIAL IV ONE (10:30)
[2024-06-25] MEDS ORDERED: hydrALAZINE HCL 20 MG/ML VL IV PRN (10:30)
[2024-06-25] MEDS ORDERED: MIDAZOLAM HCL 2MG/2ML 2ml VIAL (1mg/ml) IV PRN (10:30)
[2024-06-25] MEDS ORDERED: MORPHINE SULFATE 4 MG/ML SYR/VIAL IV PRN (10:30)
[2024-06-25] MEDS ORDERED: DexAMETHasone SOD PHOS 10MG/1ML VIAL INJ ONE (10:44)
[2024-06-25] MEDS ORDERED: PROPOFOL 10 MG/ML 20 ML IV ONE (10:44)
[2024-06-25] MEDS ORDERED: ROCURONIUM 10MG/ML 10ML VIAL IV ONE (10:49)
[2024-06-25] MEDS ORDERED: ONDANSETRON HCL 4 MG/2 ML VIAL ONE (10:50)
[2024-06-25] MEDS ORDERED: SUGAMMADEX 200mg/2ml Vial (100MG/ML) IV ONE (12:07)
[2024-06-25 12:31] VITALS: O2SAT 98
[2024-06-25] MEDS ORDERED: NITROGLYCERIN 0.4 MG SL TAB SL PRN (13:00)
[2024-06-25] MEDS: HYDROmorphone HCL 2 MG/ML VL/or syr IV PRN (13:00)
[2024-06-25] MEDS ORDERED: MORPHINE SULFATE INJ 2 MG/ml SYRG IV PRN (13:00)
--- NOTE | 2024-06-25 13:08 | DVHHP2 ---
Review of Systems Allergies: Coded Allergies: NO KNOWN ALLERGIES (Unverified , 01/02/10) Medications Current Medications Medications Dose Ordered Sig/Leonardo Route Start Time Stop Time Status Last Admin Dose Admin Nitroglycerin 0.4 mg Q5MINP PRN SL 06/25/24 13:00 UNV Morphine Sulfate 2 mg Q30M PRN IV 06/25/24 13:00 UNV Exam Vital Signs Vital Signs Date Time Temp Pulse Resp B/P (MAP) Pulse Ox O2 Delivery O2 Flow Rate FiO2 06/25/24 07:32 98.1 82 18 118/76 (90) 99 98.1 Labs/Xrays Labs Test 06/20/24 10:55 Range/Units White Blood Count 7.6 4.4-10.8 10^3/uL Red Blood Count 5.25 4.5-5.90 10^6/uL Hemoglobin 10.6 L 13.5-17.5 g/dL Hematocrit 34.9 L 41.0-53.0 % Mean Corpuscular Volume 66.4 L 80.0-100.0 fL Mean Corpuscular Hemoglobin 20.1 L 28.0-32.0 pg Mean Corpuscular Hemoglobin Concent 30.3 L 32.0-36.0 g/dL Red Cell Distribution Width 22.1 H 11.8-14.3 % Platelet Count 204 140-450 10^3/uL Mean Platelet Volume 8.2 6.9-10.8 fL Neutrophils (%) (Auto) 58.2 37.0-80.0 % Lymphocytes (%) (Auto) 29.1 10.0-50.0 % Monocytes (%) (Auto) 8.4 0.0-12.0 % Eosinophils (%) (Auto) 3.1 0.0-7.0 % Basophils (%) (Auto) 1.2 0.0-2.0 % Neutrophils # (Auto) 4.4 1.6-8.6 10 ^3/uL Lymphocytes # (Auto) 2.2 0.4-5.4 10 ^3/uL Monocytes # (Auto) 0.6 0-1.3 10 ^3/uL Eosinophils # (Auto) 0.2 0-0.8 10 ^3/uL Basophils # (Auto) 0.1 0-0.2 10 ^3/uL Nucleated Red Blood Cells 0.1 % Prothrombin Time 12.0 H 9.3-11.8 sec Prothrombin Time INR 1.15 0.9-1.15 Activated Partial Thromboplast Time 29.7 24.5-34.5 SEC Urine Color Light-yellow Yellow Urine Clarity Clear Clear Urine pH 5.0 5.0-9.0 Urine Specific [place] 1.007 1.001-1.035 Urine Protein Negative Negative Urine Ketones Negative Negative Urine Blood Negative Negative /uL Urine Nitrite Negative Negative Urine Bilirubin Negative Negative Urine Urobilinogen Normal Negative mg/dL Urine Leukocyte Esterase Negative Negative /uL Urine RBC <1 0 - 3 /hpf Urine Microscopic WBC < 1 0-3 /HPF Urine Squamous Epithelial Cells None seen <5 /hpf Urine Bacteria None seen None Seen /hpf Urine Glucose Normal Normal mg/dL Sodium Level 134 L 136-145 mmol/L Potassium Level 4.9 3.5-5.1 mmol/L Chloride Level 102 98-107 mmol/L Carbon Dioxide Level 24 20-31 mmol/L Anion Gap 8 5-15 Blood Urea Nitrogen 17 9-23 mg/dL Creatinine 1.13 0.700-1.30 mg/dL Glomerular Filtration Rate Calc 82 >90 mL/min BUN/Creatinine Ratio 15.0 10.0-20.0 Serum Glucose 113 H 74-106 mg/dL Calcium Level 10.1 8.7-10.4 mg/dL Total Bilirubin 1.8 H 0.2-1.0 mg/dL Aspartate Amino Transferase (AST) 34 13-40 U/L Alanine Aminotransferase (ALT) 38 7-40 U/L Alkaline Phosphatase 160 H 46-116 U/L Total Protein 8.3 H 5.7-8.2 g/dL Albumin 4.4 3.2-4.8 g/dL Assessment/Plan Assessment/Plan see dictated note Plan discussed with: Patient My Orders Orders - GÓMEZ MURRAY MD Procedure Category Date Status Time Admit ADMIT 06/25/24 Transmitted 12:48 Oxygen By Nasal RT 06/25/24 Transmitted Cannula 12:48 Nitroglycerin PHA 06/25/24 Logged Sublingual (Ntrostat 13:00 Morphine Sulfate PHA 06/25/24 Logged Injection 13:00 Stat Ekg For Chest SYLVIA 06/25/24 In Process Pain 12:48 Notify Of Changes SYLVIA 06/25/24 In Process From Base 12:48 Date of Service: Jun 25, 2024 Billing Provider: GÓMEZ MURRAY MD Common Visit Codes: [id number] INP/OBS CARE (HIGH) GÓMEZ MURRAY MD Jun 25, 2024 13:08
[2024-06-25] MEDS ORDERED: ONDANSETRON HCL 4 MG/2 ML VIAL IV PRN (13:15)
[2024-06-25] MEDS ORDERED: ACETAMINOPHEN 325 MG TAB PO PRN (13:15)
--- NOTE | 2024-06-25 13:29 | DVHHP ---
ADMIT DATE: 06/25/2024 HISTORY OF PRESENT ILLNESS: The patient is a 43-year-old gentleman who was admitted after he underwent a right shoulder surgery by Dr. Chery. The patient at this time denies any pain. No chest pain or shortness of breath. No nausea or vomiting. REVIEW OF SYSTEMS: Review of rest of systems are otherwise currently negative. PAST MEDICAL HISTORY: Significant for liver cirrhosis with a previous history of GI bleeding, history of seizure disorder as well as a previous history of alcohol abuse. MEDICATIONS: Lasix, Aldactone, Keppra, gabapentin and Protonix. ALLERGIES: No known drug allergies. SOCIAL HISTORY: Lives with family. Previous history of smoking or alcohol. FAMILY HISTORY: Negative. PHYSICAL EXAMINATION: GENERAL: The patient is awake. VITAL SIGNS: Temperature 98.1, pulse 82 per minute, blood pressure 118/76. SHEENT: Unremarkable. NECK: There is no JVD. EXTREMITIES: No pedal edema. LUNGS: Equal bilaterally. No added sounds. CARDIOVASCULAR: S1, S2 is regular, no murmurs. ABDOMEN: Soft. There is no definite organomegaly. NEUROLOGIC: Nonfocal. MUSCULOSKELETAL: The right shoulder is currently in a shoulder immobilizer. ASSESSMENT AND PLAN: * Liver cirrhosis due to alcohol abuse. The patient will continue on diuretics. * History of seizure disorder, for which he will be placed on Keppra. * Anemia. * History of gastrointestinal bleed. * Status post right shoulder surgery, for which he will be followed up by Dr. Chery. MD SHARON Gilliam/SUSHANT TID: [id number] RECEIPT: [id number]
[2024-06-25 14:20] VITALS: BP 132/95; PULSE 101; RESP 17; TEMP 98.1; O2SAT 96
[2024-06-25 15:01] VITALS: BP 132/95; PULSE 101; RESP 17; TEMP 98.1; O2SAT 96
[2024-06-25 16:57] VITALS: BP 135/87; PULSE 90; RESP 20; TEMP 98; O2SAT 96
[2024-06-25] MEDS: MORPHINE SULFATE INJ 2 MG/ml SYRG IV PRN (20:28)
[2024-06-25 21:00] VITALS: BP 124/89; PULSE 92; RESP 17; TEMP 97.8; O2SAT 96
[2024-06-25] MEDS: LACTULOSE 20Gm/30ML SOLN PO SCH (21:26)
[2024-06-25] MEDS: levETIRAcetam 500 MG TAB PO SCH (21:40)
[2024-06-26 01:00] VITALS: BP 130/83; PULSE 98; RESP 17; TEMP 97.9; O2SAT 96
[2024-06-26 05:00] VITALS: BP 126/71; PULSE 85; RESP 17; TEMP 98.1; O2SAT 98
[2024-06-26] MEDS: PANTOPRAZOLE 40 MG TAB PO SCH (06:20)
[2024-06-26 07:36] LABS: Anion Gap 7 (5-15); Carbon Dioxide 24 mmol/L (20-31); Chloride 102 mmol/L (98-107); Potassium 4.6 mmol/L (3.5-5.1)
[2024-06-26 07:37] LABS: Calcium 9.4 mg/dL (8.7-10.4)
[2024-06-26 07:38] LABS: Sodium 133 mmol/L (136-145)
[2024-06-26 07:42] LABS: BUN/Creatinine Ratio 15.2 (10.0-20.0); Blood Urea Nitrogen 14 mg/dL (9-23)
[2024-06-26 07:44] LABS: Glucose 131 mg/dL (74-106)
[2024-06-26 08:00] VITALS: PULSE 90; RESP 20; O2SAT 96
[2024-06-26 08:18] LABS: Basophils # (auto) 0 10 ^3/uL (0-0.2); Eosinophils # (auto) 0 10 ^3/uL (0-0.8); Hemoglobin 8.6 g/dL (13.5-17.5); Lymphocytes # (auto) 1.1 10 ^3/uL (0.4-5.4); Lymphocytes % (auto) 9.1 % (10.0-50.0); Mean Corpuscular Hemoglobin 20.5 pg (28.0-32.0); Mean Corpuscular Hgb Conc. 31.2 g/dL (32.0-36.0); Monocytes # (auto) 0.9 10 ^3/uL (0-1.3); Platelet Count (auto) 156 10^3/uL (140-450); Red Blood Cells 4.21 10^6/uL (4.5-5.90); White Blood Cell 12.6 10^3/uL (4.4-10.8)
[2024-06-26 08:19] LABS: Basophils % (auto) 0.3 % (0.0-2.0); Hematocrit 27.6 % (41.0-53.0); Mean Corpuscular Volume 65.6 fL (80.0-100.0); Monocytes % (auto) 7.3 % (0.0-12.0); Neutrophils # (auto) 10.5 10 ^3/uL (1.6-8.6); Neutrophils % (auto) 83.3 % (37.0-80.0); Red Cell Distribution Width 21.2 % (11.8-14.3)
[2024-06-26] MEDS: SPIRONOLACTONE 25 MG TAB PO SCH (08:41)
[2024-06-26] MEDS: FUROSEMIDE 40 MG TAB PO SCH (08:41)
[2024-06-26] MEDS: GABAPENTIN 300 MG CAP PO SCH (08:42)
[2024-06-26 09:00] VITALS: BP 108/68; PULSE 90; RESP 20; TEMP 98; O2SAT 96
[2024-06-26] MEDS: HYDROcodone-ACET 5/325MG TAB PO PRN (10:22)
[2024-06-26] MEDS ORDERED: LACT10SO3 PO (11:42)
--- NOTE | 2024-06-26 11:42 | DVHDS2 ---
Discharge Summary Date of Admission Jun 25, 2024 at 12:48 Date of Discharge: Jun 26, 2024 Labs/Diagnostic Data: Laboratory Results Test 06/26/24 06:44 06/20/24 10:55 White Blood Count 12.6 10^3/uL (4.4-10.8) Red Blood Count 4.21 10^6/uL (4.5-5.90) Hemoglobin 8.6 g/dL (13.5-17.5) Hematocrit 27.6 % (41.0-53.0) Mean Corpuscular Volume 65.6 fL (80.0-100.0) Mean Corpuscular Hemoglobin 20.5 pg (28.0-32.0) Mean Corpuscular Hemoglobin Concent 31.2 g/dL (32.0-36.0) Red Cell Distribution Width 21.2 % (11.8-14.3) Platelet Count 156 10^3/uL (140-450) Mean Platelet Volume 8.4 fL (6.9-10.8) Neutrophils (%) (Auto) 83.3 % (37.0-80.0) Lymphocytes (%) (Auto) 9.1 % (10.0-50.0) Monocytes (%) (Auto) 7.3 % (0.0-12.0) Eosinophils (%) (Auto) 0.0 % (0.0-7.0) Basophils (%) (Auto) 0.3 % (0.0-2.0) Neutrophils # (Auto) 10.5 10 ^3/uL (1.6-8.6) Lymphocytes # (Auto) 1.1 10 ^3/uL (0.4-5.4) Monocytes # (Auto) 0.9 10 ^3/uL (0-1.3) Eosinophils # (Auto) 0 10 ^3/uL (0-0.8) Basophils # (Auto) 0 10 ^3/uL (0-0.2) Nucleated Red Blood Cells 0.0 % Sodium Level 133 mmol/L (136-145) Potassium Level 4.6 mmol/L (3.5-5.1) Chloride Level 102 mmol/L (98-107) Carbon Dioxide Level 24 mmol/L (20-31) Anion Gap 7 (5-15) Blood Urea Nitrogen 14 mg/dL (9-23) Creatinine 0.92 mg/dL (0.700-1.30) Glomerular Filtration Rate Calc 105 mL/min (>90) BUN/Creatinine Ratio 15.2 (10.0-20.0) Serum Glucose 131 mg/dL (74-106) Calcium Level 9.4 mg/dL (8.7-10.4) Ammonia 67 umol/L (11-32) Prothrombin Time 12.0 sec (9.3-11.8) Prothrombin Time INR 1.15 (0.9-1.15) Activated Partial Thromboplast Time 29.7 SEC (24.5-34.5) Urine Color Light-yellow (Yellow) Urine Clarity Clear (Clear) Urine pH 5.0 (5.0-9.0) Urine Specific [place] 1.007 (1.001-1.035) Urine Protein Negative (Negative) Urine Ketones Negative (Negative) Urine Blood Negative /uL (Negative) Urine Nitrite Negative (Negative) Urine Bilirubin Negative (Negative) Urine Urobilinogen Normal mg/dL (Negative) Urine Leukocyte Esterase Negative /uL (Negative) Urine RBC <1 /hpf (0 - 3) Urine Microscopic WBC < 1 /HPF (0-3) Urine Squamous Epithelial Cells None seen /hpf (<5) Urine Bacteria None seen /hpf (None Seen) Urine Glucose Normal mg/dL (Normal) Total Bilirubin 1.8 mg/dL (0.2-1.0) Aspartate Amino Transferase (AST) 34 U/L (13-40) Alanine Aminotransferase (ALT) 38 U/L (7-40) Alkaline Phosphatase 160 U/L (46-116) Total Protein 8.3 g/dL (5.7-8.2) Albumin 4.4 g/dL (3.2-4.8) Other Laboratory Tests 06/26/24 06:44 Brief Hx & Hospital Course: right shoulder surgery Condition at Discharge: Fair Final Diagnosis/Problems List right shoulder surgery Discharge Disposition: Home Discharge Instruct/Medications Diet: Cardiac 2g Na,low cholest Activity: No Restrictions, As Tolerated Follow Up/Referral: fu with dr Chery Medications: resume home meds script to pharmacy Discharge Statement: "Patient was advised to return to the ER or call 911 if any headaches, dizziness, shortness of breath, chest pain, abdominal pain, bleeding, fevers, or worsening of medical condition. Patient was counseled about treatment plan, medications, possible side effects, patientverbalized understanding. All questions were answered to the best of my ability. This discharge took greater then 30 minutes in planning, reviewing documentation, counseling the patient, and discussing with other team members." ASSESSMENT ASSESSMENT Assessment right shoulder surgery Date of Service: Jun 26, 2024 Billing Provider: GÓMEZ MURRAY MD Common Visit Codes: 49264-DEZ/OBS DISCH DAY >30min GÓMEZ MURRAY MD Jun 26, 2024 11:42
[2024-06-26 11:44] VITALS: BP 108/68; PULSE 90; RESP 20; TEMP 98; O2SAT 96
[2024-06-26 11:45] VITALS: BP 120/69; PULSE 99; RESP 20
[2024-06-26] MEDS ORDERED: LACTULOSE 20Gm/30ML SOLN PO ONE (11:45)
--- NOTE | 2024-06-26 11:54 | DVHDS ---
DATE OF DISCHARGE: 06/26/2024 HISTORY OF PRESENT ILLNESS: The patient is a 43-year-old gentleman who was admitted after he underwent surgery on the right shoulder and has previous history of liver cirrhosis and alcohol abuse. HOSPITAL COURSE: The patient did well postoperatively. Hemoglobin at time of discharge is 8.6. The patient will now be discharged home to be on medications as per Dr. Chery that is lactulose 30 mL b.i.d. He will follow up with Dr. Chery and his primary care doctor. 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 * History of seizure disorder. * Anemia. * History of gastrointestinal bleed. * Status post right shoulder surgery. Time spent in discharge planning and review of plan with the patient and nursing was 37 minutes. MD SHARON Gilliam/PAOLA TID: [id number] RECEIPT: [id number]
--- NOTE | 2024-07-04 13:05 | DVHOP2 ---
Operative Report - 2 Report Details Date: 06/25/24 Preop Diagnosis: Right shoulder anterior labral tear , SLAP tear Postop Diagnosis: right shoulder anterior, posterior and superior labral tear Surgeon: Davie Chery MD Production Line Solderer: SURAJ Vaughn Anesthesiologist: Dr Jacinto Anesthesia: General, Regional Implant: Arthrex Fibertak x7 Consent: The patient was informed of the risks and benefits of the procedure. These include but are not limited to complications of anesthesia, postoperative infection, incomplete relief of symptoms, recurrence of symptoms, damage to blood vessels, nerves and tendons, deep venous thrombosis, pulmonary embolism and possible need for repeat surgery in the future. Complications: None Estimated Blood Loss: 10 ml Indications for Surgery: Benefits, risks and treatment alternatives to surgery were discussed. Pros and cons of various treatment options were discussed. Surgical complications including neurovascular injury, stiffness, infection, dislocation, fracture, non-union, malunion, loss of limb or life were discussed. The patient/family decided to proceed with the surgery The patient presented to the clinic with a history of recurrent shoulder dislocations. Clinical and radiological evaluation demonstrated anterior and superior labral tears. Non-operative and operative management options were discussed. He decided to proceed with the surgical option. Name of Procedure Performed Right shoulder arthroscopy, anterior, posterior, superior labral repairs.Extensive synovial debridement Procedure Details Procedure Details: The patient was identified in the preoperative holding area and the surgical site was marked. The consent was verified. The patient was brought into the operating room and placed supine on the operating table. General anesthesia was administered. The patient was now flipped into the lateral position. The beanbag was deflated. Axillary roll was placed. All the bony prominences were appropriately padded. The extremity was secured to a arm plasencia and placed under 10 pounds of tension with around 30 degrees of abduction. The extremity was prepped and draped in the usual sterile manner. A timeout was called out to confirm the identity of the patient, the nature of surgery, the site of surgery, the availability of implants and x-rays and allergies to medications. The shoulder was examined under anesthesia and was found to be unstable. Anterior instability was noted with near complete dislocation with anterior drawer. No engagement was noted. Sulcus sign was 1+. A standard posterior portal established. A 30 degree scope was inserted. A standard anterosuperior portal was established using a spinal needle. A probe was inserted and the findings were as follows 1. Positive drive-through sign 2. Complete tear of the anterior labrum 3. Complete tear of the superior and posterior labrum posteriorly 4. SLAP type II tear 5. Intact rotator cuff tendon 6. Small Hill-Sachs lesion A plastic cannula was inserted in the anterior superior portal. Next, the plastic cannula was inserted into the anteroinferior portal. There was capsular laxity noted as well. I decided to proceed with the labral repair and capsulorrhaphy. Anterior labral repair: A drill guide was inserted through the anteroinferior portal at the 6:30 position. The hole for the anchor was drilled. Next, a s uture lasso was now inserted through the anteroinferior portal. This was passed through the capsule and the inferior labrum. The repair stitch was now passed through the passing stitch. The fiber tape was now pulled to loop the repair stitch around the labrum, excellent fixation was noted. This was repeated for 3 more anchors sequentially up to the subscapularis tendon. The inferior glenohumeral ligament and middle glenohumeral ligament were also included in the repair due to generalized laxity. Bumper effect was noted. Capsular shift was also done as part of this procedure. Drive-through sign was completely eliminated. Posterior labral repair: The scope was now inserted into the anterosuperior portal. A cannula was inserted through the posterior portal. An additional 7:00 portal was made inferior to the posterior acromion. This was a percutaneous portal. A guidepin was inserted. Next a straight guide was inserted on top of it. A suture anchor was inserted. Next a suture lasso was inserted as per the steps mentioned above for an excellent fixation using the knotless all suture anchor, Arthrex fiber alvino. Superior labral repair: The superior most posterior anchor was inserted posterior to the biceps tendon as part of the SLAP repair as well. . Superior labral repair was completed with an anchor posterior to the biceps tendon. Excellent reduction was noted. A small gap was noted over the superior portion of the biceps tendon but that was left in situ to avoid overtightening of the biceps attachment. The arm was taken out of the traction and anterior drawer applied and was negative this time. Irrigation was given and the skin portals were closed with Vicryl and nylon. Steri-Strips and sterile dressing was applied. The arm was placed in a shoulder immobilizer. Condition Fair Disposition Home DAVIE CHERY MD Jul 04, 2024 13:05
== END 2024-06-26 13:22 | disposition home or self-care (01) | DRG 317 ==
LOC: SUR 06:29 → OVERFLOW 12:48 → WEST WING 14:23
PROVIDERS: ADMIT Internal Medicine; ATTEND Internal Medicine
PROC: 0LM14ZZ Reattachment of Right Shoulder Tendon, Percutaneous Endoscopic Approach (ICD-10-PCS; principal; 2024-06-25 09:56)
DX: S43.431A Superior glenoid labrum lesion of right shoulder, initial encounter (principal); K70.30 Alcoholic cirrhosis of liver without ascites; D64.9 Anemia, unspecified; G40.909 Epilepsy, unspecified, not intractable, without status epilepticus; F10.10 Alcohol abuse, uncomplicated; S42.291A Other displaced fracture of upper end of right humerus, initial encounter for closed fracture; M25.311 Other instability, right shoulder; Y90.9 Presence of alcohol in blood, level not specified; X58.XXXA Exposure to other specified factors, initial encounter; Z87.891 Personal history of nicotine dependence; Y93.89 Activity, other specified; Y92.89 Other specified places as the place of occurrence of the external cause; Y99.8 Other external cause status
CPT/HCPCS: 36415; 80048; 80053; 81001; 82140; 85025; 85610; 85730; A4565; G0378; J1100; J2250; J2405; J2704; J3490

== ENCOUNTER → 2024-07-11 | Outpatient (CLI) | payer MEDICAID ==
[~2024-07-11] MED LIST changes: +LACT10SO3 PO
[2024-07-11 10:43] LABS: Basophils # (auto) 0.1 10 ^3/uL (0-0.2); Eosinophils # (auto) 0.4 10 ^3/uL (0-0.8); Neutrophils # (auto) 5.1 10 ^3/uL (1.6-8.6); Platelet Count (auto) 144 10^3/uL (140-450)
[2024-07-11 10:45] LABS: Basophils % (auto) 0.8 % (0.0-2.0); Eosinophils % (auto) 4.7 % (0.0-7.0); Hematocrit 32.6 % (41.0-53.0); Lymphocytes # (auto) 2.1 10 ^3/uL (0.4-5.4); Lymphocytes % (auto) 24.5 % (10.0-50.0); Mean Corpuscular Hemoglobin 19.8 pg (28.0-32.0); Mean Corpuscular Hgb Conc. 30.6 g/dL (32.0-36.0); Mean Corpuscular Volume 64.8 fL (80.0-100.0); Monocytes # (auto) 0.9 10 ^3/uL (0-1.3); Monocytes % (auto) 10.2 % (0.0-12.0); Neutrophils % (auto) 59.8 % (37.0-80.0); Red Blood Cells 5.04 10^6/uL (4.5-5.90); White Blood Cell 8.5 10^3/uL (4.4-10.8)
[2024-07-11 10:47] LABS: Red Cell Distribution Width 21.5 % (11.8-14.3)
[2024-07-11 10:59] LABS: INR 1.19 (0.9-1.15); Partial Thromboplastin Time 30.2 SEC (24.5-34.5); Prothrombin Time 12.4 sec (9.3-11.8)
[2024-07-11 11:06] LABS: Albumin 3.8 g/dL (3.2-4.8); Anion Gap 6 (5-15); BUN/Creatinine Ratio 16.3 (10.0-20.0); Calcium 9.7 mg/dL (8.7-10.4); Carbon Dioxide 24 mmol/L (20-31); Chloride 104 mmol/L (98-107); Glucose 98 mg/dL (74-106); Total Protein 7.1 g/dL (5.7-8.2)
[2024-07-11 11:09] LABS: Alanine Aminotransferase 43 U/L (7-40); Alkaline Phosphatase 152 U/L (46-116); Aspartate Aminotransferase 41 U/L (13-40); Bilirubin, Total 1.7 mg/dL (0.2-1.0); Blood Urea Nitrogen 24 mg/dL (9-23); Potassium 5.5 mmol/L (3.5-5.1); Sodium 134 mmol/L (136-145)
== END | disposition home or self-care (01) ==
LOC: LAB 10:16
PROVIDERS: ATTEND Internal Medicine Gastroenterology
DX: I10 Essential (primary) hypertension (principal); E78.5 Hyperlipidemia, unspecified; D64.9 Anemia, unspecified; K70.31 Alcoholic cirrhosis of liver with ascites
CPT/HCPCS: 36415; 80053; 82105; 85025; 85610; 85730

== ENCOUNTER → 2024-10-18 | Day surgery (SDC) | payer MEDICAID ==
[2024-10-16 12:47] LABS: Basophils # (auto) 0.1 10 ^3/uL (0-0.2); Eosinophils # (auto) 0.4 10 ^3/uL (0-0.8); Hemoglobin 13.1 g/dL (13.5-17.5); Lymphocytes # (auto) 1.8 10 ^3/uL (0.4-5.4); Monocytes # (auto) 0.8 10 ^3/uL (0-1.3); Nucleated Red Blood Cells % 0.1 %
[2024-10-16 12:51] LABS: Basophils % (auto) 1.5 % (0.0-2.0); Eosinophils % (auto) 4.6 % (0.0-7.0); Hematocrit 39.9 % (41.0-53.0); Lymphocytes % (auto) 22.3 % (10.0-50.0); Mean Corpuscular Hemoglobin 24.1 pg (28.0-32.0); Mean Corpuscular Hgb Conc. 32.8 g/dL (32.0-36.0); Mean Corpuscular Volume 73.4 fL (80.0-100.0); Monocytes % (auto) 9.6 % (0.0-12.0); Neutrophils # (auto) 4.9 10 ^3/uL (1.6-8.6); Platelet Count (auto) 132 10^3/uL (140-450); Red Blood Cells 5.44 10^6/uL (4.5-5.90); Red Cell Distribution Width 22.9 % (11.8-14.3)
[2024-10-16 13:00] LABS: INR 1.22 (0.9-1.15); Partial Thromboplastin Time 31.3 SEC (24.5-34.5); Prothrombin Time 12.7 sec (9.3-11.8)
[2024-10-16 13:08] LABS: Alanine Aminotransferase 24 U/L (7-40); Albumin 3.9 g/dL (3.2-4.8); Alkaline Phosphatase 149 U/L (46-116); Anion Gap 7 (5-15); Aspartate Aminotransferase 34 U/L (<34); BUN/Creatinine Ratio 8.9 (10.0-20.0); Bilirubin, Total 1.5 mg/dL (0.2-1.0); Blood Urea Nitrogen 8 mg/dL (9-23); Calcium 8.8 mg/dL (8.7-10.4); Carbon Dioxide 28 mmol/L (20-31); Chloride 105 mmol/L (98-107); Glucose 95 mg/dL (74-106); Potassium 4.3 mmol/L (3.5-5.1); Sodium 140 mmol/L (136-145); Total Protein 7.3 g/dL (5.7-8.2)
[~2024-10-18] VITALS: Ht 177.8 cm; Wt 84.8 kg
[~2024-10-18] MED LIST changes: +DexAMETHasone SOD PHOS 10MG/1ML VIAL INJ ONE; +FERR1TAB36 PO; -FURO1TAB33 PO; -GABA-1250 PO; -KEP500T PO; -LACT10SO3 PO; +MIDAZOLAM HCL 2MG/2ML 2ml VIAL (1mg/ml) ONE; +MIDAZOLAM HCL 5 MG/ML-1ML VIAL ONE; -NICO14DI9 TD; -PANT40TA2 PO; +PROPOFOL 10 MG/ML 20 ML IV ONE; +SODIUM CHLORIDE LOCK 0 ML ONE; -SPIR100T4 PO; -SPIR50TA2 PO; +diphenhdrAMINE HCL 50 MG/1 ML VL ONE; +fentaNYL CITRATE 100 MCG/2 ML VL ONE
[2024-10-18 13:05] VITALS: PULSE 73; RESP 12; TEMP 98.3; O2SAT 100
[2024-10-18 13:45] VITALS: BP 130/82; PULSE 80; RESP 16; O2SAT 98
--- NOTE | 2024-10-18 13:57 | DVHOP2 ---
Operative Report DATE OF OPERATION: 10/18/24 PROCEDURE: Colonoscopy with hot snare polypectomy. PREOPERATIVE INDICATION: The patient is a 44 -year-old male undergoing colonoscopy for colon cancer screening POSTOPERATIVE DIAGNOSES: 1. Patient had a 1.5-2 cm superficially spreading benign-appearing polyp seen in the proximal ascending colon. This was removed completely in a piecemeal fashion 2. Mild sigmoid diverticular disease 3. 1+ internal hemorrhoids otherwise normal examination up to the cecum and terminal ileum PROCEDURE PERFORMED BY: Dayan Stewart M.D. SCOPE: Olympus videocolonoscope. ASA CLASS: 2 PREOPERATIVE MEDICATIONS: Mac jose, Dr. Robertson PROCEDURE IN DETAIL: After obtaining an informed consent, the patient was placed on left lateral decubitus position. He was then sedated with the above medications. A rectal examination was performed that was normal. The colonoscope was then passed through the anus into the rectosigmoid and through the descending, transverse, and ascending colon up to the cecum with visualization of the appendiceal orifice, base of the cecum and the ileocecal valve. The colonoscope was then withdrawn. The distal 5-10 cm of the terminal ileum were normal Patient had a 1.5-2 cm benign-appearing superficially spreading polyp seen in the proximal ascending colon This was removed via hot snare polypectomy in a piecemeal fashion and the specimen was retrieved No other polyps or masses were seen. Patient had mild sigmoid diverticular disease. On retroflexion he had 1+ internal hemorrhoids.The patient tolerated the procedure well without difficulty. WITHDRAWAL TIME: 15 minutes QUALITY OF THE PREP: Malott Bowel Prep score: 9. COMPLICATIONS : None SPECIMENS: Ascending colon polyp DISPOSITION: Stable D/C to home PLAN: 1. Repeat colonoscopy based on biopsy result likely in three years 2. Resume GI soft diet advance as tolerated 3. Increase fluid and fiber intake 4. Local anorectal hemorrhoidal care 5. Outpatient follow up with me in 4-6 weeks to review results and discuss further management DAYAN STEWART MD Oct 18, 2024 13:57
== END | disposition home or self-care (01) ==
LOC: GI 09:50
PROVIDERS: ATTEND Internal Medicine Gastroenterology
DX: Z12.11 Encounter for screening for malignant neoplasm of colon (principal); K57.30 Diverticulosis of large intestine without perforation or abscess without bleeding; D12.2 Benign neoplasm of ascending colon; K64.0 First degree hemorrhoids; I10 Essential (primary) hypertension; G40.909 Epilepsy, unspecified, not intractable, without status epilepticus; Z79.899 Other long term (current) drug therapy; K74.69 Other cirrhosis of liver
CPT/HCPCS: 36415; 45385; 80053; 85025; 85610; 85730; 88305; J1100; J2250; J2704; J3010; J7030